=== PATIENT | male | born 1970 | race Caucasian/White ===

== ENCOUNTER 2021-01-17 13:52 | Emergency (ER) | payer MEDICARE, MEDICAID, SELFPAY ==
[2021-01-17] VITALS (8 sets, daily range): BP systolic 109–134; BP diastolic 72–104; PULSE 100–156; RESP 20; TEMP 36.7–36.8; O2SAT 96–98
--- NOTE | ~2021-01-17 | XR_ITS ---
EXAMINATION: XR chest 2V DATE: 01/17/2021 15:08 INDICATION: Congestive heart failure. Chest pain. TECHNIQUE: Frontal and lateral views of the chest were obtained. COMPARISON: Chest 2 views 08/13/2019 FINDINGS: There are small pleural effusions. There is no pneumonia or pneumothorax. Cardiomegaly is n oted. Epidural electrodes are noted. IMPRESSION: 1. Small pleural effusions. 2. Cardiomegaly. Reviewed, dictated and finalized at location B.
--- NOTE | 2021-01-17 14:00 | ECG_ITS ---
Measurements Intervals [place] Rate: 163 P: [place]: 0 QRS: 108 QRSD: 91 T: -60 QT: 248 QTc: 409 Interpretive Statements ATRIAL FIBRILLATION WITH RAPID VENTRICULAR RESPONSE RIGHT AXIS DEVIATION NONSPECIFIC ST & T-WAVE ABNORMALITY- DIFFUSE LEADS BASELINE ARTIFACT- II, III, AVR, AVF, V3 ABNORMAL ECG Electronically Signed On 01-17-2021 20:30:47 CDT by Ty Blackwood D.O.
[2021-01-17] MEDS: dilTIAZem HCl INJ 25 MG/5 ML VIAL 10 MG IV PUSH (14:10)
[2021-01-17] MEDS: ASPIRIN 81 MG CHEWABLE TABLET 324 MG PO (14:10)
--- NOTE | 2021-01-17 14:20 | ED.SOB ---
HPI - SOB/Dyspnea General Chief Complaint: Chest Pain Stated Complaint: Chest pain Time Seen by Provider: 01/17/21 14:10 Source: patient Mode of arrival: ambulatory Limitations: no limitations History of Present Illness HPI Narrative: This gentleman come in stating he has been moderately short of breath, ongoing since last pm. He has had palpations since last pm. He states he has had no chest pain, but has had some chest pressure since last pm. He states he has gained 20 pounds over the last few days. This shortness of breath has not been associated with any known cause. No modifying factors, nothing made this better at home. MD elicited complaint: shortness of breath Pertinent past history: other (rapid heartbeat) Onset (ago): hour(s) Context: anxiety and other (developed at rest) Timing: constant Severity: moderate Exacerbating factors: lying flat and exertion Relieving factors: rest Associated symptoms: chest pain (chest pressure) and palpitations Treatment prior to arrival: none Related Data Home oxygen amount: none Home Medications Medication Instructions Recorded Confirmed hydromorphone 2.5 mg PO BID 01/17/21 01/17/21 morphine 30 mg PO BID 01/17/21 01/17/21 testosterone 1 pump TOPICAL DAILY 01/17/21 01/17/21 Allergies Allergy/AdvReac Type Severity Reaction Status Date / Time No Known Allergies Allergy Verified 01/17/21 14:42 Review of Systems Constitutional: Constitutional: Reports no additional constitutional complaints Eyes: Eyes: Reports no additional eye complaints ENT: Reports system reviewed and no additional complaints, except as documented Cardiovascular: Cardiovascular: Reports no additional cardiovascular complaints Respiratory: Respiratory: Reports no additional respiratory complaints Gastrointestinal: Gastrointestinal: Reports no additional gastrointestinal complaints Genitourinary: Genitourinary: Reports no additional male genitourinary complaints Musculoskeletal: Musculoskeletal: Reports no additional musculoskeletal complaints Integumentary/Breasts: Skin/Breast: Reports system reviewed and no additional complaints, except as docu Neurologic: Reports system reviewed and no additional complaints, except as documented Hematologic/Lymphatic: Hematologic/Lymphatic: Reports no additional hematologic/lymphatic complaints Allergic/Immunologic: Allergic/Immunologic: Reports no additional allergic/immunologic complaints PMFSH Past Medical History Medical History (Updated 01/17/21 @ 16:21 by Rafita Nam MD) Arrhythmia Back pain Surgical History Surgical History (Updated 01/17/21 @ 14:25 by Rafita Nam MD) H/O laminectomy H/O: knee surgery History of hip replacement Family History Family History Father Family history of cardiac disorder Malignant neoplasm of prostate Family history of heart disease in male family member before age 55 Family history of malignant neoplasm Sibling Family history of malignant neoplasm of breast in first degree relative Mother Family history of malignant neoplasm Social History Social History Smoking status: Never smoker Alcohol intake: current Gender identity (if verbalized by the patient): Male Exam Const: General: healthy appearing and no acute distress Orientation/consciousness: patient oriented x3 HENMT: Head: normal to inspection Ears: external ears normal General nose exam: Normal external nose present Mouth: Yes Normal oral and palatal mucosa present Throat: posterior oropharynx normal Eyes: Conjunctivae: conjunctivae normal Neck: Neck: normal visual inspection Chest: Chest palpation & inspection: normal inspection of the chest Resp: Effort & Inspection: normal respiratory effort Cardio: Rate: regular rate Rhythm: regular rhythm GI: GI Palp: Yes Soft to palpation (nontender) : Male General Exam: Yes normal external exam Skin: General ski
[2021-01-17 14:33] LABS: Basophils Absolute Auto 0.06 K/mm3 (0.00-0.10); Basophils Percent Auto 0.4 % (0.0-1.0); Eosinophils Absolute Auto 0.03 K/mm3 (0.02-0.50); Eosinophils Percent Auto 0.2 % (1.0-6.0); Hematocrit 47.3 % (40.0-54.0); Hemoglobin 15.2 g/dL (14.0-18.0); Immature Granulocyte Absolute 0.06 K/mm3 (0.00-0.00); Immature Granulocyte Percent A 0.4 % (0.0-0.0); Lymphocytes Percent Auto 9.9 % (18.0-42.0); Mean Corpuscular HGB Conc 32.1 g/dL (32.0-36.0); Mean Corpuscular Hemoglobin 32.7 pg (27.0-31.0); Mean Corpuscular Volume 101.7 fL (78.0-102.0); Monocytes Absolute Auto 1.14 K/mm3 (0.10-0.90); Monocytes Percent Auto 7.5 % (2.0-11.0); Neutrophils Absolute Auto 12.4 K/mm3 (1.7-7.2); Neutrophils Percent Auto 81.6 % (50.0-70.0); Platelet Count Result 197 K/mm3 (150-420); Red Blood Count 4.65 M/mm3 (4.70-6.10); Red Cell Distribution Width 13.3 % (11.6-14.4); White Blood Count 15.2 K/mm3 (4.8-10.8)
[2021-01-17 14:55] LABS: Alanine Aminotransferase 175 U/L (16-63); Albumin Level 3.2 g/dL (3.4-5.0); Alkaline Phosphatase 48 U/L (46-116); Anion Gap 10 mmol/L (8-16); Aspartate Amino Transferase 70 U/L (15-37); Bilirubin,Total 1.1 mg/dL (0.00-1.00); Blood Urea Nitrogen 27 mg/dL (7-18); Calcium 8.4 mg/dL (8.5-10.1); Carbon Dioxide 20 mmol/L (21-32); Chloride 108 mmol/L (98-108); Estimated CRCL calculation 97 ml/min; Estimated Glomerular Filt Rate > 60; Glucose 146 mg/dL (70-99); Magnesium 2.4 mg/dL (1.8-2.4); NT Pro B Type Natriuretic Pept 2491 pg/mL (0-125); Osmolality Calculated 294 mOsm/kg (285-295); Potassium 4.1 mmol/L (3.5-5.1); Sodium 138 mmol/L (136-145); Total Protein 5.7 g/dL (6.4-8.2); Troponin I 17.5 ng/L (0.00-60.4)
[2021-01-17] MEDS: POTASSIUM BICARBONATE 25 MEQ TABEF 50 MEQ PO (15:40)
[2021-01-17] MEDS: FUROSEMIDE INJ 40 MG/4 ML VIAL 20 MG IV PUSH (15:40)
== END 2021-01-17 19:05 | disposition short-term general hospital (02) ==
PROVIDERS: Emergency Provider Emergency Medicine; PCP Internal Medicine
DX: I48.0 Paroxysmal atrial fibrillation (principal)
CPT/HCPCS: 36415; 71046; 80053; 83735; 83880; 84484; 85025; 93005; 96365; 96366; 96375; 99285; A9270; J1940

== ENCOUNTER 2021-01-17 20:53 | Inpatient (IN) | payer MEDICARE, MEDICAID, SELFPAY ==
--- NOTE | ~2021-01-17 | US_ITS ---
EXAMINATION:US venous doppler LE BI INDICATION:Leg edema TECHNIQUE: Multiple grayscale, color flow and Doppler images of the right and left lower extremity de ep venous systems were obtained and reviewed. COMPARISON: Ultrasound dated 04/02/2012. FINDINGS: The common femoral, superficial femoral and popliteal veins demonstrate normal respiratory variation, augmentation and compressibility. Color flow is also seen within the posterior tibial, pe roneal, greater saphenous and profunda veins. IMPRESSION: 1: No lower extremity deep venous thrombosis. Reviewed, dictated and finalized at location A.
[2021-01-17 19:45] VITALS: BP 139/102; PULSE 86; RESP 20; TEMP 36.5; O2SAT 99; BMI 28.8
--- NOTE | 2021-01-17 19:55 | ADMGEN ---
This patient, Jamarcus Cardenas, was admitted to IMU Room 200-01 at 1945. Patient/family oriented to hospital policies and general routines including ID bracelet, bed and alarms, visiting hours, pain management, procedures, bathroom and other care routines, personal items, smoking policy, room service/diet, and visiting hours. Information on how to activate the Rapid Response Team has been discussed. Patient/Family are encouraged to report perceived risks to care and to ask questions if they do not understand what they are told or what they should do.
[2021-01-17 19:58] VITALS: PULSE 85
[2021-01-17 20:00] VITALS: PULSE 85
[2021-01-17 20:19] VITALS: PULSE 85
--- NOTE | 2021-01-17 21:01 | PM.IMHP ---
H&P: HPI History of Present Illness Date/Time: 01/17/21 21:01 this is a 50-year-old male patient who has no to medical history. The patient has chronic back pain and has spinal stimulator in sees pain management. The patient stated that he felt this coming on for at least a week. He has been short of breath especially when bending over and then he said that when he rolls over in bed he feels short of breath as well. The patient stated that he had a 19 lb weight gain since this past Saturday. He has noticed an increased swelling to his lower extremities as well. The patient went to [facility] and was found to be in AFib with RVR and was started on a Cardizem drip. First troponin was found to be negative. BNP was elevated to 2490. As small pleural effusions. Cardiomegaly. The patient stated that he was given Lasix at [facility]. The patient tells me that he has had chest pressure midsternal for the last week. It just got worse over the last couple days. That he has not had any irregular heart rate but he states that he was seeing Dr. Gracia in the past any does not remember why. The patient stated that his heart rate he has to always be released low. Patient is being admitted to inpatient services on the date of service of 01/17/2021. I had been given report from Dr. perdomo at [facility] prior to the direct admit. Chief Complaint: Shortness of breath and chest pressure Review of Systems Review of Systems: All systems reviewed & are unremarkable except as noted in HPI and below Constitutional: Constitutional: Reports as per HPI and Reports no additional constitutional complaints Eyes: Eyes: Reports as per HPI and Reports no additional eye complaints ENT: Reports system reviewed and no additional complaints, except as documented and Reports Normal hearing present Cardiovascular: Cardiovascular: Reports no additional cardiovascular complaints Respiratory: Respiratory: Reports no additional respiratory complaints and Reports no additional respiratory complaints Gastrointestinal: Gastrointestinal: Reports as per HPI and Reports no additional gastrointestinal complaints Musculoskeletal: Musculoskeletal: Reports no additional musculoskeletal complaints Integumentary/Breasts: Skin/Breast: Reports system reviewed and no additional complaints, except as docu and Reports as per HPI Neurologic: Reports system reviewed and no additional complaints, except as documented, Reports as per HPI and Reports Normal hearing present Psychiatric: Psychiatric: Reports no additional psychiatric complaints and Reports as per HPI Endocrine: Endocrine: Reports no additional endocrine complaints Hematologic/Lymphatic: Hematologic/Lymphatic: Reports no additional hematologic/lymphatic complaints Allergic/Immunologic: Allergic/Immunologic: Reports no additional allergic/immunologic complaints [facility] Past Medical History Medical History (Updated 01/17/21 @ 21:10 by Anusha Keith NP) Arrhythmia Back pain Spinal cord stimulator status Surgical History Surgical History (Updated 01/17/21 @ 21:06 by Anusha Keith NP) H/O laminectomy H/O: knee surgery Bilaterally History of appendectomy History of bilateral carpal tunnel release History of hip replacement On the left Family History Family History Father Family history of cardiac disorder Malignant neoplasm of prostate Family history of heart disease in male family member before age 55 Family history of malignant neoplasm Sibling Family history of malignant neoplasm of breast in first degree relative Mother Family history of malignant neoplasm Social History Social History (Updated 01/17/21 @ 21:08 by Anusha Keith NP) Social History: The patient lives with his . He has 2 biological children and 3 step children. The patient is disabled. His is the durable power environmental attorney for healthcare. [place]
[2021-01-17 21:36] LABS: Basophils Absolute Auto 0.1 K/mm3 (0.0-0.1); Basophils Percent Auto 0.4 % (0.2-1.2); Eosinophils Absolute Auto 0.1 K/mm3 (0-0.3); Eosinophils Percent Auto 0.4 % (0-4.4); Hematocrit 45.9 % (42.0-52.0); Hemoglobin 15.1 g/dL (14.0-18.0); Immature Granulocyte Absolute 0.07 K/mm3 (0.00-0.031); Immature Granulocyte Percent A 0.5 % (0-0.5); Lymphocytes Absolute Auto 1.97 K/mm3 (0.9-3.2); Lymphocytes Percent Auto 15.3 % (18.3-44.2); Mean Corpuscular HGB Conc 32.9 g/dl (32-36); Mean Corpuscular Hemoglobin 32.4 pg (26-34); Mean Corpuscular Volume 98.5 fl (80-100); Mean Platelet Volume 11.3 fl (7.4-10.4); Monocytes Absolute Auto 0.9 K/mm3 (0.1-0.6); Monocytes Percent Auto 7.2 % (2.6-8.5); Neutrophils Absolute Auto 9.8 K/mm3 (1.3-6.7); Neutrophils Percent Auto 76.2 % (45.5-73.1); Platelet Count Result 200 k/mm3 (150-375); Red Blood Count 4.66 M/mm3 (4.6-6.20); Red Cell Distribution Width 13.5 % (11.5-14.5); White Blood Count 12.9 K/mm3 (4.5-10.0)
[2021-01-17 21:45] LABS: Magnesium 2.1 mg/dL (1.6-2.3)
[2021-01-17] MEDS: ENOXAPARIN 120 MG/0.8 ML SYRINGE 105 MG SUB-Q (21:46)
[2021-01-17 21:58] LABS: Troponin I 0.017 ng/mL (0.000-0.034)
[2021-01-17 22:00] VITALS: PULSE 100
[2021-01-17] MEDS: MORPHINE SULFATE (*CRX) 2 MG/ML INJ IV PUSH (22:48)
[2021-01-17 23:07] VITALS: BP 132/77; PULSE 78; RESP 20; TEMP 36.6; O2SAT 97
[2021-01-18] VITALS (17 sets, daily range): BP systolic 101–139; BP diastolic 71–86; PULSE 70–146; RESP 18–20; TEMP 35.8–36.6; O2SAT 97–100
--- NOTE | 2021-01-18 | ECHO_ITS ---
Patient Info Name: Jamarcus Cardenas Age: 50 years : 1970 Gender: Male Ht: 75 in Wt: 230 lbs BSA: 2.37 m2 HR: 100 bpm BP: 139 / 86 mmHg Heart Rhythm: Atrial Fibrillation Technical Quality: Good Exam Date: 01/18/2021 9:46 AM Exam Location: [facility] Pulmonary Patient Status: Inpatient Admit Date: 01/17/2021 Staff Ordering Physician: Anusha Keith NP [place] Sewer: London Shetty RDCS, RT Attending Provider: Nathan Razo MD Referring Physician: Inna POON; Exam Type: CA echo dop color flow w con Study Info Indications R06.02 - Shortness of breath Complete two-dimensional, color flow and Doppler transthoracic echocardiogram is performed with contrast to opacify the left ventricle and to improve the deliniation of the left ventricle endocardial borders. Strain analysis performed. Summary 1. Left ventricular chamber dimension is moderately enlarged. 2. Left ventricular systolic function is moderately reduced, estimated at 30-35%. 3. Left atrial chamber dimension is moderately enlarged. 4. There is mild mitral valve regurgitation. 5. Atrial Fibrillation. Left Ventricle Left ventricular chamber dimension is moderately enlarged. Left ventricular systolic function is moderately reduced, estimated at 30-35%. The left ventricular diastolic function is indeterminate. Right Ventricle Right ventricular chamber dimension is normal. Left Atria Left atrial chamber dimension is moderately enlarged. Right Atria Right atrial chamber dimension is normal. Aortic Valve The aortic valve is normal. Pulmonic Valve The pulmonic valve is normal. Mitral Valve The mitral valve has normal leaflets. There is mild mitral valve regurgitation. Tricuspid Valve The tricuspid valve leaflets are normal. Pericardium/Pleural The pericardium appears normal. Aorta The aortic root size at the sinus of Valsalva is normal. Left Ventricular Outflow Tract Name Value Normal LVOT 2D LVOT Diameter 2.24 cm LVOT Doppler LVOT Peak Gradient 1 mmHg LVOT Mean Gradient 1 mmHg LVOT VTI 19.68 cm LVOT VTI/AV VTI Ratio 0.84 LVOT Stroke Volume 77.72 ml LVOT CO 3.62 l/min LVOT CI 1.53 L/min/m2 Mitral Valve Name Value Normal MV Doppler MV Decel [place] 762.44 cm/s2 MV PHT 0 s MV Area (PHT) 6.79 cm2 4.00-5.00 MV Diastolic Function MV E Peak Velocity 85.23 cm/s MV A Peak Velocity 88.80 cm/s MV E/A 0.96
[2021-01-18] MEDS: HYDROcodone/acetaminophen (*CRX) 5-325 MG TABLET 1 TAB PO (00:15)
[2021-01-18 00:31] LABS: Anion Gap 6 mmol/L (8-16); Blood Urea Nitrogen 22 mg/dL (9-20); Calcium 8.3 mg/dL (8.4-10.2); Carbon Dioxide 25 mmol/L (22-30); Chloride 106 mmol/L (98-107); Estimated CRCL calculation 92 ml/min; Estimated Glomerular Filt Rate > 60; Glucose 123 mg/dL (75-110); Magnesium 2.2 mg/dL (1.6-2.3); Potassium 4.3 mmol/L (3.4-5.0); Sodium 137 mmol/L (137-145)
[2021-01-18] MEDS: MORPHINE SULFATE (*CRX) 2 MG/ML INJ IV PUSH ×2 (03:52→17:12)
[2021-01-18 04:24] LABS: Basophils Absolute Auto 0.1 K/mm3 (0.0-0.1); Basophils Percent Auto 0.5 % (0.2-1.2); Eosinophils Absolute Auto 0.1 K/mm3 (0-0.3); Eosinophils Percent Auto 0.4 % (0-4.4); Hematocrit 43.8 % (42.0-52.0); Hemoglobin 14.2 g/dL (14.0-18.0); Immature Granulocyte Absolute 0.09 K/mm3 (0.00-0.031); Immature Granulocyte Percent A 0.8 % (0-0.5); Lymphocytes Absolute Auto 1.94 K/mm3 (0.9-3.2); Lymphocytes Percent Auto 17.1 % (18.3-44.2); Mean Corpuscular HGB Conc 32.4 g/dl (32-36); Mean Corpuscular Hemoglobin 32.3 pg (26-34); Mean Corpuscular Volume 99.8 fl (80-100); Mean Platelet Volume 11.4 fl (7.4-10.4); Monocytes Percent Auto 9.1 % (2.6-8.5); Neutrophils Absolute Auto 8.2 K/mm3 (1.3-6.7); Neutrophils Percent Auto 72.1 % (45.5-73.1); Platelet Count Result 195 k/mm3 (150-375); Red Blood Count 4.39 M/mm3 (4.6-6.20); Red Cell Distribution Width 13.5 % (11.5-14.5); White Blood Count 11.4 K/mm3 (4.5-10.0)
[2021-01-18 04:42] LABS: Anion Gap 5 mmol/L (8-16); Blood Urea Nitrogen 20 mg/dL (9-20); Carbon Dioxide 24 mmol/L (22-30); Chloride 106 mmol/L (98-107); Estimated CRCL calculation 102 ml/min; Estimated Glomerular Filt Rate > 60; Glucose 102 mg/dL (75-110); Magnesium 2.2 mg/dL (1.6-2.3); Potassium 4.3 mmol/L (3.4-5.0); Sodium 135 mmol/L (137-145)
[2021-01-18 07:06] LABS: Add Urine Microscopic? YES; Appearance Urine Clear (Clear); Bilirubin Urine Negative (Negative); Blood Urine Negative (Negative); Color Urine Yellow (Yellow); Glucose Urine UA Negative (Negative); Ketones Urine Negative (Negative); Leukocyte Esterase Ur Negative LEU/UL (Negative); Mucus Urine Heavy /lpf; Nitrate Urine Negative (Negative); Protein Urine 1+ mg/dL (Negative); RBC Urine 0-2 /hpf (0-2); Urobilinogen Urine Negative mg/dL (<2.0); WBC Urine 0-3 /hpf
[2021-01-18 07:11] LABS: Specific Grav Ur 1.032 (1.001-1.035)
[2021-01-18] MEDS: MORPHINE SULFATE (*CRX) 30 MG TABCR PO ×2 (08:29→21:29)
[2021-01-18] MEDS: ENOXAPARIN 120 MG/0.8 ML SYRINGE 105 MG SUB-Q ×2 (08:29→17:11)
[2021-01-18] MEDS: FUROSEMIDE INJ 40 MG/4 ML VIAL IV PUSH (08:29)
--- NOTE | 2021-01-18 09:41 | PM.CNCAR ---
Assessment and Plan Additional Plan 50-year-old man with: Atrial fibrillation with rapid ventricular response. By history this is began 7-10 days or so before hospital presentation. He is rate controlled a anticoagulated with Lovenox and is hemodynamically stable at this time. At this time I would recommend shifting him to an oral anticoagulant and awaiting his echocardiogram results to select an oral rate control agent. Generally speaking if he is otherwise stable we will most likely recommend rate control and anticoagulation for the short term and attempt cardioversion after 4-6 weeks of anticoagulation. Depending on his clinical response to this strategy it sometimes of forces by is desirable to try to restore sinus rhythm earlier. That would require BRENDAN cardioversion during this hospitalization since it is by history he has been in atrial fibrillation for more than a week. Rene Stringer MD [facility] History of Present Illness History of Present Illness Consult date/time: 01/18/21 09:41 Consult reason: atrial fibrillation Reason For Visit: A fib w RVR/ Cardiomegaly Narrative: This is a 50-year-old man of seeing at the request of the hospitalist today for the assistance with evaluation and management of atrial fibrillation. The patient is a known to have any cardiac problems before this and became symptomatic last weekend on Saturday or Saturday. He states that he noticed that he was gradually less stamina and energy than he had in the past and slowly becoming more short of breath. He also noticed that his weight was increasing and notice some lower extremity edema. Over the course of the 7-10 days that he was having the symptoms he slowly put on about 18 lb of weight and eventually called his physician about this. Interestingly he is not having any sense of being aware of palpitations or tachycardia. His physician advised him to come to the emergency room in [place] yesterday where he was evaluated. He was found to be in atrial fib with rapid ventricular response and was transferred to this hospital. He was of course treated with intravenous diltiazem to control his heart rate and anticoagulated with therapeutic dose of Lovenox. An echocardiogram has been ordered by the hospitalist staff which is yet to be performed this morning. The patient states there is sense of some mild pressure in his chest over the course of the last week or so since the symptoms have begun he is otherwise relatively comfortable appearing of this morning it other than urinating frequently in response to furosemide does not have any other complaints. 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 He also has a previous hip and knee replacement surgery performed. He states he is not known to have diabetes or dyslipidemia he states his physician a number of years ago told him that his blood pressure was somewhat elevated but he lost about 30-40 lb after being told that it states with blood pressure improved and he has never been medical antihypertensive therapy. With IV diltiazem running his heart rate is now in the low 100s and he seems to be hemodynamically stable he is oxygenating well. Review of Systems Constitutional: Constitutional: Reports no additional constitutional complaints Eyes: Eyes: Reports no additional eye complaints ENT: Reports system reviewed and no additional complaints, except as documented Cardiovascular: Cardiovascular: Reports as per HPI Respiratory: Respiratory: Reports as per HPI and Reports dyspnea Gastrointestinal: Gastrointestinal: Reports no additional gastrointestinal complaints Musculoskeletal: Musculoskeletal: Reports as per HPI Integumentary/Breasts: Skin/Breast: Reports system reviewed and no additional complaints, except as docu Neurologic: Reports system revie
[2021-01-18] MEDS: PERFLUTREN LIPID MICROSPHERES 1.5 ML VIAL DILUTED TO 10 ML TOTAL VOLUME IV PUSH (10:19)
--- NOTE | 2021-01-18 12:22 | PM.IMPN ---
Progress Note: A&P Assessment and Plan (1) Atrial fibrillation: Qualifiers: Atrial fibrillation type: paroxysmal Qualified Code(s): I48.0 - Paroxysmal atrial fibrillation Code(s): I48.91 - Unspecified atrial fibrillation Status: Inactive Assessment and Plan: This is a new onset that the patient is aware of new onset c therapeutic Lovenox echo cardiology consult David gusman ordered an echo . (2) Peripheral edema: Code(s): R60.9 - Edema, unspecified Status: Acute Assessment and Plan: Probably related to CHF exacerbation pending echo continue IV diuresis. (3) Back pain: Code(s): M54.9 - Dorsalgia, unspecified Status: Chronic Assessment and Plan: Will continue with patient's morphine and do p.r.n. IV morphine for breakthrough pain. The patient stated that he has had at least 6 back surgeries in the past. He does see pain management. Patient has a medical marijuana card but states that the marijuana does not help Subjective Date/time seen: 01/18/21 12:22 Interval history: Patient seen and examined Patient presented to the hospital with shortness of breath lower extremity swelling chronic back pain weight gain patient was found to have AFib with RVR acute CHF exacerbation started on therapeutic Lovenox and IV diuresis Patient feels weak complains of lower extremity edema Patient denies fever headache chest pain I am seeing the patient for CHF exacerbation Exam Narrative: Exam Narrative: Alert Chest bilateral basal crackles Abdomen nontender nondistended CVS S1 + S2 Positive Lower extremity edema Objective Data Vital Signs Vital Signs: Vital Signs - 24 hr 01/17/21 19:45 01/17/21 19:58 01/17/21 20:00 Temperature 97.7 F Pulse Rate 86 85 85 Respiratory Rate 20 Blood Pressure 139/102 H Pulse Oximetry 99 01/17/21 20:19 01/17/21 22:00 01/17/21 23:07 Temperature 97.9 F Pulse Rate 85 100 78 Respiratory Rate 20 Blood Pressure 132/77 Pulse Oximetry 97 01/18/21 00:00 01/18/21 02:00 01/18/21 04:00 Temperature 97.9 F Pulse Rate 110 H 86 70 Respiratory Rate 20 18 Blood Pressure 139/86 Pulse Oximetry 97 98 01/18/21 06:00 01/18/21 08:00 01/18/21 10:00 Temperature 96.4 F L Pulse Rate 85 97 106 H Respiratory Rate 20 Blood Pressure 118/81 Pulse Oximetry 100 Intake/Output Intake/Output: Intake & Output 01/15/21 01/16/21 01/17/21 01/18/21 23:59 23:59 23:59 23:59 Intake Total 930 Output Total 3050 Balance -2120 Meds/Results Medications: Active Medications Generic Name Dose Route Start Last Admin Trade Name Freq PRN Reason Stop Dose Admin Furosemide 40 mg 01/18/21 09:00 01/18/21 08:29 Furosemide Inj 40 Mg/4 Ml Vial IV PUSH 40 mg DAILY MORRIS Administration Diltiazem HCl 100 mg in 100 mls @ 10 mls/hr 01/17/21 21:10 Cardizem 100 Mg/D5w 100 Ml IV CONT .Q10H MORRIS 10 MG/HR Lisinopril 5 mg 01/19/21 09:00 Lisinopril 5 Mg Tablet PO QAM [facility] Metoprolol Tartrate 50 mg 01/18/21 21:00 Metoprolol Tartrate 50 Mg Tab PO Q12HR [facility] Morphine Sulfate 2 mg 01/17/21 20:53 01/18/21 03:52 Morphine Sulfate (*Crx) 2 Mg/Ml Inj IV PUSH 2 mg Q4H PRN Administration Pain Rated 7-10 Morphine Sulfate 30 mg 01/18/21 09:00 01/18/21 08:29 Morphine Sulfate (*Crx) 30 Mg Tabcr PO 30 mg Q12HR MORRIS Administration Naloxone HCl 0.1 mg 01/17/21 20:53 Naloxone Hcl 0.4 Mg/Ml Vial IV PUSH Q2M PRN Opiate Reversal Ondansetron HCl 4 mg 01/17/21 20:53 Ondansetron Inj 4 Mg/2 Ml Vial IV PUSH Q6H PRN Nausea And Vomiting Rivaroxaban 20 mg 01/18/21 17:00 Rivaroxaban 20 Mg Tablet PO DAILY@1700 [facility] Spironolactone 25 mg 01/19/21 09:00 Spironolactone 25 Mg Tablet PO QAM [facility] Sumatriptan Succinate 100 mg 01/18/21 00:04 Sumatriptan Succinate 25 Mg Tablet PO DAILY PRN Headache Labs [place]
--- NOTE | 2021-01-18 14:07 | ECG_ITS ---
Measurements Intervals [place] Rate: 101 P: [place]: 0 QRS: 91 QRSD: 92 T: 149 QT: 322 QTc: 418 Interpretive Statements ATRIAL FIBRILLATION WITH RAPID VENTRICULAR RESPONSE RIGHT AXIS DEVIATION NONSPECIFIC ST & T-WAVE ABNORMALITY- DIFFUSE LEADS BASELINE ARTIFACT- III, V2 ABNORMAL ECG Electronically Signed On 01-18-2021 14:32:23 CDT by Ty Blackwood D.O.
[2021-01-18 15:02] LABS: Troponin I < 0.012 ng/mL (0.000-0.034)
--- NOTE | 2021-01-18 16:28 | PM.EVENT ---
Event Note Event Note Event Note: Received call from patient's nurse stating that patient was reporting new onset chest pain. Per the nurse he describes this pain as a squeezing type pain in his upper left chest. Requested stat EKG and troponin. Proceeded to bedside to evaluate patient. He states that his chest pain has resolved but has been intermittent throughout the day when his heart rate becomes elevated. At the time of this encounter his heart rate was in the 140s. He states that states the pain feels like the muscles in his chest are squeezing and that he feels like it is difficult to breathe during these events. He also states that he is having some anxiety. He denies radiation of the pain to his neck, jaw, arm. Chest pain resolved without any intervention. EKG personally reviewed and compared with previous EKG. No changes concerning for ischemia. Troponin negative. Will continue to monitor patient.
[2021-01-18 17:13] LABS: Glucose Point of Care 167 mg/dl (65-105)
[2021-01-18] MEDS: METOPROLOL TARTRATE 50 MG TAB PO (21:28)
[2021-01-19] VITALS (21 sets, daily range): BP systolic 99–131; BP diastolic 69–86; PULSE 52–130; RESP 17–20; TEMP 35.9–36.7; O2SAT 95–100
[2021-01-19] MEDS: MORPHINE SULFATE (*CRX) 2 MG/ML INJ IV PUSH ×2 (01:20→19:01)
[2021-01-19] MEDS: ENOXAPARIN 120 MG/0.8 ML SYRINGE 105 MG SUB-Q (06:12)
[2021-01-19] MEDS: FUROSEMIDE INJ 40 MG/4 ML VIAL IV PUSH (08:21)
[2021-01-19] MEDS: MORPHINE SULFATE (*CRX) 30 MG TABCR PO ×2 (08:21→20:44)
[2021-01-19] MEDS: METOPROLOL TARTRATE 50 MG TAB PO ×3 (08:21→22:51)
[2021-01-19] MEDS: lisinopriL 5 MG TABLET PO (08:21)
[2021-01-19] MEDS: SPIRONOLACTONE 25 MG TABLET PO (08:24)
--- NOTE | 2021-01-19 08:56 | PM.PNCARD ---
Progress Note: A&P Assessment and Plan (1) Atrial fibrillation with RVR: Code(s): I48.91 - Unspecified atrial fibrillation Status: Acute Assessment and Plan: This a new diagnosis this admission. Unknown chronicity. It sounds like the patient may have been in AFib with RVR for quite some time without any obvious symptoms therefore he did not seek evaluation. He has been transitioned to oral metoprolol and diltiazem has been discontinued at this time. Telemetry overnight demonstrated that he did have some tachycardia with a rate up to 160. However, it appears that after receiving his 1st dose of metoprolol his heart rate has been better controlled and has not had any RVR since last night. His rate is currently in the 80s. Plan to monitor patient throughout the day for any episodes of RVR. If he remains asymptomatic and rate controlled okay to discharge later today or tomorrow. We will anticoagulate him with Xarelto. (2) Cardiomyopathy: Code(s): I42.9 - Cardiomyopathy, unspecified Status: Acute Assessment and Plan: Echocardiogram from 01/18/2021 demonstrated moderate LV dysfunction with an ejection fraction of 30-35%. This is likely due to his tachyarrhythmia. Clinically his heart failure symptoms have improved. His lower extremity edema has essentially resolved, he denies any shortness of breath, lungs are clear. Will transition him to oral furosemide today. Check BMP now. He has been placed on appropriate medical therapy for her for HFrEF including lisinopril, spironolactone, metoprolol, furosemide. We will see him in the office as an outpatient and repeat an echocardiogram. (3) Peripheral edema: Code(s): R60.9 - Edema, unspecified Status: Acute Assessment and Plan: See above. Additional Plan 50-year-old man with: Atrial fibrillation with rapid ventricular response. By history this is began 7-10 days or so before hospital presentation. He is rate controlled a anticoagulated with Lovenox and is hemodynamically stable at this time. At this time I would recommend shifting him to an oral anticoagulant and awaiting his echocardiogram results to select an oral rate control agent. Generally speaking if he is otherwise stable we will most likely recommend rate control and anticoagulation for the short term and attempt cardioversion after 4-6 weeks of anticoagulation. Depending on his clinical response to this strategy it sometimes of forces by is desirable to try to restore sinus rhythm earlier. That would require BRENDAN cardioversion during this hospitalization since it is by history he has been in atrial fibrillation for more than a week. Rene Stringer MD [facility] He is stable today and rate is reasonably controlled on oral metoprolol. We will proceed with the above plan outlined by Dr. Stringer and attempt cardioversion in 4-6 weeks at which point in time he will be adequately anticoagulated. Sara Garibay, ANP- Subjective Date/time seen: 01/19/21 08:56 cardiology follow-up for atrial fibrillation with rapid ventricular response Patient states he is feeling much better today. He denies having any chest pain or palpitations overnight. He does state that this morning he experienced a period of anxiety with associated shortness of breath. He states that when he closed his eyes and began to relax her shortness of breath resolved. He notes that the swelling in his ankles and feet has drastically improved. Review of Systems Constitutional: Constitutional: Reports no additional constitutional complaints, Denies difficulty sleeping, Denies fatigue and Denies weakness Eyes: Eyes: Reports no additional eye complaints ENT: Reports system reviewed and no additional complaints, except as documented and Reports Normal hearing present Cardiovascular: Cardiovascular: Reports as per HPI, Denies chest pain, Reports pedal edema, Denies leg edema, Denies lightheadedness, Denies palpita
[2021-01-19 10:23] LABS: Anion Gap 6 mmol/L (8-16); Blood Urea Nitrogen 13 mg/dL (9-20); Calcium 8.6 mg/dL (8.4-10.2); Carbon Dioxide 26 mmol/L (22-30); Chloride 107 mmol/L (98-107); Estimated CRCL calculation 102 ml/min; Estimated Glomerular Filt Rate > 60; Glucose 126 mg/dL (75-110); Potassium 4.2 mmol/L (3.4-5.0); Sodium 139 mmol/L (137-145)
--- NOTE | 2021-01-19 11:42 | PM.DS ---
DS: Admitting Diagnosis Admitting Diagnosis Admitting Diagnosis: Shortness of breath DS: Discharge Diagnosis Discharge Diagnosis (1) Atrial fibrillation: Qualifiers: Atrial fibrillation type: paroxysmal Qualified Code(s): I48.0 - Paroxysmal atrial fibrillation Code(s): I48.91 - Unspecified atrial fibrillation Status: Inactive Assessment and Plan: This is a new onset that the patient is aware of new onset c therapeutic Lovenox echo cardiology consult Cardizem drip echo shows ejection fraction 30-35% discussed with Cardiology plan for ischemic workup as outpatient patient will be discharged on beta-selina anticoagulation and follow-up with cardiology as outpatient. (2) Peripheral edema: Code(s): R60.9 - Edema, unspecified Status: Acute Assessment and Plan: Acute on top of chronic systolic CHF exacerbation with ejection fraction 30-35% follow-up with cardiology as outpatient may need ischemic workup discussed with cardiology patient will be discharged on oral diuretics repeat CMP in 1 week . (3) Back pain: Code(s): M54.9 - Dorsalgia, unspecified Status: Chronic Assessment and Plan: Will continue with patient's morphine and do p.r.n. IV morphine for breakthrough pain. The patient stated that he has had at least 6 back surgeries in the past. He does see pain management. Patient has a medical marijuana card but states that the marijuana does not help DS: Summary Hospital Course Hospital Course: Patient was admitted to the hospital with shortness of breath lower extremity edema weight gain was found to have AFib with RVR acute on top of chronic systolic CHF exacerbation cardiology was consulted patient was treated with Cardizem drip and Lovenox and IV diuresis patient will be discharged on metoprolol oral anticoagulation diuretics and follow-up with cardiology as outpatient for ischemic workup Time Spent with Patient Time attestation: Total time spent providing and/or coordinating discharge services: Exam Narrative: Exam Narrative: Alert Chest bilateral basal crackles Abdomen nontender nondistended CVS S1 + S2 Positive Lower extremity edema DS: Data Data Completed and Pending Labs on day of discharge: Labs from last 24 hours 01/19/21 01/18/21 01/18/21 09:52 16:16 14:20 Sodium 139 Potassium 4.2 Chloride 107 Carbon Dioxide 26 Anion Gap 6 L BUN 13 D Creatinine 0.90 Estim Creat Clear Calc 102 Estimated GFR > 60 Glucose 126 H POC Capillary Glucose 167 H Calcium 8.6 Troponin I < 0.012 Discharge Plan Discharge Attending physician on discharge: Abdirashid Hodgson M.A. Consulting providers: Rene Stringer Discharging Clinician: Abdirashid Hodgson M.A. Patient Disposition: Home, Self-Care Activity: no preference Diet: heart healthy, diabetic and low sodium Patient Instructions: Antibiotic Form, Rivaroxaban (By mouth) Stand Alone Forms: General Discharge Information Follow-up/Referrals: Rene Stringer MD [Physician] - Mateo Walters MD [Primary Care Provider] - Discharge Medications: New spironolactone 25 mg Tablet 25 mg PO QAM Qty: 30 RF: 0 Xarelto 20 mg Tablet 20 mg PO DAILY@1700 Qty: 30 RF: 0 metoprolol tartrate 50 mg Tablet 50 mg PO Q12HR Qty: 60 RF: 0 lisinopril 5 mg Tablet 5 mg PO QAM Qty: 30 RF: 0 furosemide 40 mg Tablet 40 mg PO BID Qty: 60 RF: 0 Continued morphine 30 mg tablet extended release 30 mg PO BID RF: 0 hydromorphone 2 mg tablet 2 mg PO BID RF: 0 testosterone 20.25 mg/1.25 gram (1.62 %) gel in metered-dose pump 1 pump topical DAILY RF: 0 sumatriptan succinate 100 mg tablet 100 mg PO DAILY PRN (Reason: Headache) RF: 0 Discontinued diclofenac sodium 75 mg tablet,delayed release (DR/EC) 75 mg PO DAILY PRN (Reason: Inflammation) RF: 0 Date of admission: 01/17/21 19:43 Primary Care
[2021-01-19] MEDS: RIVAROXABAN 20 MG TABLET PO (18:18)
[2021-01-19] MEDS: FUROSEMIDE 40 MG TABLET PO (18:19)
[2021-01-19] MEDS: METOPROLOL TARTRATE INJ 5 MG/5 ML VIAL IV PUSH (18:50)
[2021-01-20] VITALS (25 sets, daily range): BP systolic 99–121; BP diastolic 67–99; PULSE 66–115; RESP 16–21; TEMP 36.3–37.1; O2SAT 93–100
--- NOTE | 2021-01-20 | ECHO_ITS ---
Patient Info Name: Jamarcus Cardenas Age: 50 years : 1970 Gender: Male Ht: 75 in Wt: 235 lbs BSA: 2.39 m2 HR: 115 bpm BP: 120 / 98 mmHg Heart Rhythm: Atrial Fibrillation Technical Quality: Good Exam Date: 01/20/2021 4:03 PM [facility] Patient Status: Inpatient Admit Date: 01/17/2021 Staff Ordering Physician: Nathan Razo MD Physician Practice Coordinator: Hortencia Pruitt RDCS Attending Provider: Nathan Razo MD Exam Type: CA echo transesophageal Study Info Indications - PRE CARDIOVERSION AFIB /RVR CARDIOMEGALY Complete two-dimensional, color flow and Doppler transesophageal study is performed. Summary 1. Left ventricular chamber dimension is moderately enlarged. 2. Left atrial chamber dimension is severely enlarged. 3. There is no thrombus visualized in the left atrium. 4. DC Cardioversion to be done. Left Ventricle Left ventricular chamber dimension is moderately enlarged. Left ventricular systolic function is severely reduced with an ejection fraction by Biplane Method of Discs of Empty. Right Ventricle Right ventricular chamber dimension is mildly enlarged. Left Atria Left atrial chamber dimension is severely enlarged. There is no thrombus visualized in the left atrium. Right Atria Right atrial chamber dimension is mildly enlarged. Atrial Appendage There is no thrombus visualized in the left atrial appendage. Aortic Valve The aortic valve is normal. Pulmonic Valve The pulmonic valve is not well visualized. Mitral Valve The mitral valve has normal leaflets. There is mild mitral valve regurgitation. Tricuspid Valve The tricuspid valve leaflets are normal. Pericardium/Pleural The pericardium appears normal. Inferior Vena Cava Not well visualized inferior vena cava with Empty collapse upon inspiration consistent with Empty right atrial pressure, Empty. Aorta The aortic root size at the sinus of Valsalva is normal. Report Signatures
[2021-01-20] MEDS: MORPHINE SULFATE (*CRX) 2 MG/ML INJ IV PUSH ×2 (02:14→12:51)
[2021-01-20] MEDS: METOPROLOL TARTRATE 50 MG TAB PO ×3 (05:51→21:13)
[2021-01-20] MEDS: MORPHINE SULFATE (*CRX) 30 MG TABCR PO ×2 (09:24→21:13)
[2021-01-20] MEDS: lisinopriL 5 MG TABLET PO (09:24)
[2021-01-20] MEDS: SPIRONOLACTONE 25 MG TABLET PO (09:25)
[2021-01-20] MEDS: FUROSEMIDE 40 MG TABLET PO (09:25)
--- NOTE | 2021-01-20 10:32 | PM.PNCARD ---
Progress Note: A&P Assessment and Plan (1) Atrial fibrillation with RVR: Code(s): I48.91 - Unspecified atrial fibrillation Status: Acute Assessment and Plan: This a new diagnosis this admission. Unknown chronicity. It sounds like the patient may have been in AFib with RVR for quite some time without any obvious symptoms therefore he did not seek evaluation. He has been transitioned to oral metoprolol. Metoprolol increased yesterday to q.8h due to persistent tachycardia. Unfortunately, his heart rate did not adequately responded to oral medications for rate control. Therefore, we will proceed with a BRENDAN guided cardioversion today. He is anticoagulated with Xarelto. (2) Cardiomyopathy: Code(s): I42.9 - Cardiomyopathy, unspecified Status: Acute Assessment and Plan: Echocardiogram from 01/18/2021 demonstrated moderate LV dysfunction with an ejection fraction of 30-35%. This is likely due to his tachyarrhythmia. Clinically his heart failure symptoms have improved. His lower extremity edema has essentially resolved, he denies any shortness of breath, lungs are clear. Continue oral furosemide 40 mg b.i.d. He has been placed on appropriate medical therapy for her for HFrEF including lisinopril, spironolactone, metoprolol, furosemide. We will see him in the office as an outpatient and repeat an echocardiogram. (3) Peripheral edema: Code(s): R60.9 - Edema, unspecified Status: Acute Assessment and Plan: See above. Additional Plan 50-year-old man with: Atrial fibrillation with rapid ventricular response. By history this is began 7-10 days or so before hospital presentation. He is rate controlled a anticoagulated with Lovenox and is hemodynamically stable at this time. At this time I would recommend shifting him to an oral anticoagulant and awaiting his echocardiogram results to select an oral rate control agent. Generally speaking if he is otherwise stable we will most likely recommend rate control and anticoagulation for the short term and attempt cardioversion after 4-6 weeks of anticoagulation. Depending on his clinical response to this strategy it sometimes of forces by is desirable to try to restore sinus rhythm earlier. That would require BRENDAN cardioversion during this hospitalization since it is by history he has been in atrial fibrillation for more than a week. Rene Stringer MD [facility] Unfortunately, we have not been able to adequately control his rate with oral medications. Therefore, our plan is to proceed with a BRENDAN guided cardioversion today. JACK Triplett-ANGELIKA Subjective Date/time seen: 01/20/21 10:32 Interval history: Date of service 01/20/2021: Patient remained tachycardic overnight despite increased dose of metoprolol. He states that he is feeling dizzy and at times can feel his heart pounding in his chest. Talked to patient and his about plan for BRENDAN guided cardioversion today. Review of Systems Constitutional: Constitutional: Reports no additional constitutional complaints, Denies difficulty sleeping, Denies fatigue and Denies weakness Eyes: Eyes: Reports no additional eye complaints ENT: Reports system reviewed and no additional complaints, except as documented and Reports Normal hearing present Cardiovascular: Cardiovascular: Reports as per HPI, Denies chest pain, Denies pedal edema, Denies leg edema, Reports lightheadedness, Reports palpitations, Denies dyspnea and Denies dyspnea on exertion Respiratory: Respiratory: Reports as per HPI, Denies dyspnea and Denies dyspnea on exertion Gastrointestinal: Gastrointestinal: Reports no additional gastrointestinal complaints Musculoskeletal: Musculoskeletal: Reports as per HPI Integumentary/Breasts: Skin/Breast: Reports system reviewed and no additional complaints, except as docu Neurologic: Reports system reviewed and no additional complaints, except as documented, Reports Normal hearing present and
--- NOTE | 2021-01-20 10:53 | PM.IMPN ---
Progress Note: A&P Assessment and Plan (1) Atrial fibrillation: Qualifiers: Atrial fibrillation type: paroxysmal Qualified Code(s): I48.0 - Paroxysmal atrial fibrillation Code(s): I48.91 - Unspecified atrial fibrillation Status: Inactive Assessment and Plan: This is a new onset that the patient is aware of new onset therapeutic Lovenox echo cardiology consult Viral drip echo shows ejection fraction 30-35% discussed with Cardiology plan for ischemic workup as outpatient patient plan for michael with cardioversion Anticipate discharge in a.m.. (2) Peripheral edema: Code(s): R60.9 - Edema, unspecified Status: Acute Assessment and Plan: Acute on top of chronic systolic CHF exacerbation with ejection fraction 30-35% follow-up with cardiology as outpatient may need ischemic workup discussed with cardiology patient . (3) Back pain: Code(s): M54.9 - Dorsalgia, unspecified Status: Chronic Assessment and Plan: Will continue with patient's morphine and do p.r.n. IV morphine for breakthrough pain. The patient stated that he has had at least 6 back surgeries in the past. He does see pain management. Patient has a medical marijuana card but states that the marijuana does not help. Subjective Date/time seen: 01/20/21 10:53 Interval history: Patient seen and examined Patient presented to the hospital with shortness of breath lower extremity swelling chronic back pain weight gain patient was found to have AFib with RVR acute CHF exacerbation started on therapeutic Lovenox and IV diuresis was treated with beta-selina and Xarelto patient's rate was not controlled plan for michael today with cardioversion Patient feels weak today Patient denies fever headache chest pain I am seeing the patient for CHF exacerbation Exam Narrative: Exam Narrative: Alert Chest bilateral basal crackles Abdomen nontender nondistended CVS S1 + S2 Positive Lower extremity edema Objective Data Vital Signs Vital Signs: Vital Signs - 24 hr 01/19/21 12:00 01/19/21 12:24 01/19/21 14:00 Temperature 96.7 F L Pulse Rate 106 H 106 H 116 H Respiratory Rate 17 17 Blood Pressure 99/81 L Pulse Oximetry 98 98 01/19/21 16:00 01/19/21 16:54 01/19/21 18:00 Temperature 97.2 F L 97.2 F L Pulse Rate 98 98 106 H Respiratory Rate 20 20 Blood Pressure 127/78 127/78 Pulse Oximetry 100 100 01/19/21 18:18 01/19/21 18:50 01/19/21 20:00 Temperature 97.6 F Pulse Rate 121 H 125 H 116 H Respiratory Rate 20 Blood Pressure 131/69 Pulse Oximetry 95 01/19/21 22:00 01/19/21 22:51 01/19/21 23:57 Temperature 97.8 F Pulse Rate 110 H 130 H 100 Respiratory Rate 20 Blood Pressure 107/77 Pulse Oximetry 95 01/20/21 00:00 01/20/21 01:35 01/20/21 04:00 Temperature 97.8 F Pulse Rate 104 H 96 101 H Respiratory Rate 20 Blood Pressure 99/75 L Pulse Oximetry 97 01/20/21 05:48 01/20/21 05:51 01/20/21 06:00 Temperature Pulse Rate 93 111 H Respiratory Rate Blood Pressure 119/67 Pulse Oximetry 01/20/21 08:00 Temperature 98.8 F Pulse Rate 96 Respiratory Rate 16 Blood Pressure 109/83 Pulse Oximetry 100 Intake/Output Intake/Output: Intake & Output 01/17/21 01/18/21 01/19/21 01/20/21 23:59 23:59 23:59 23:59 Intake Total 1890 1793.5 450 Output Total 4600 5475 800 Balance -2710 -3681.5 -350 Meds/Results Medications: Active Medications Generic Name Dose Route Start Last Admin Trade Name Freq PRN Reason Stop Dose Admin Furosemide 40 mg 01/19/21 17:00 01/20/21 09:25 Furosemide 40 Mg Tablet PO 40 mg BID MORRIS Administration Lisinopril 5 mg 01/19/21 09:00 01/20/21 09:24 Lisinopril 5 Mg Tablet PO 5 mg QAM MORRIS Administration Metoprolol Tartrate 5 mg 01/18/21 15:34 01/19/21 18:50 Metoprolol Tartrate Inj 5 Mg/5 Ml Vial IV PUSH 5 mg Q1H PRN Administration Heart rate >150 Metoprolol Tartrate 50 mg
[2021-01-20 12:12] LABS: Basophils Percent Auto 0.4 % (0.2-1.2); Eosinophils Percent Auto 0.4 % (0-4.4); Hematocrit 49.6 % (42.0-52.0); Immature Granulocyte Absolute 0.08 K/mm3 (0.00-0.031); Immature Granulocyte Percent A 0.8 % (0-0.5); Lymphocytes Absolute Auto 1.58 K/mm3 (0.9-3.2); Lymphocytes Percent Auto 15.9 % (18.3-44.2); Mean Corpuscular HGB Conc 32.3 g/dl (32-36); Mean Corpuscular Hemoglobin 32.3 pg (26-34); Monocytes Absolute Auto 0.9 K/mm3 (0.1-0.6); Monocytes Percent Auto 9.3 % (2.6-8.5); Neutrophils Absolute Auto 7.3 K/mm3 (1.3-6.7); Neutrophils Percent Auto 73.2 % (45.5-73.1); Platelet Count Result 188 k/mm3 (150-375); Red Blood Count 4.96 M/mm3 (4.6-6.20); Red Cell Distribution Width 13.5 % (11.5-14.5)
[2021-01-20 12:25] LABS: Alanine Aminotransferase 93 U/L (4-50); Albumin Level 3.6 g/dL (3.5-5.1); Alkaline Phosphatase 31 U/L (38-126); Anion Gap 4 mmol/L (8-16); Aspartate Amino Transferase 33 U/L (17-59); Bilirubin,Total 0.6 mg/dL (0.2-1.3); Blood Urea Nitrogen 13 mg/dL (9-20); Calcium 8.8 mg/dL (8.4-10.2); Carbon Dioxide 32 mmol/L (22-30); Chloride 104 mmol/L (98-107); Estimated CRCL calculation 92 ml/min; Estimated Glomerular Filt Rate > 60; Glucose 103 mg/dL (75-110); Potassium 4.7 mmol/L (3.4-5.0); Sodium 140 mmol/L (137-145)
--- NOTE | 2021-01-20 15:05 | PC.NURSE ---
Patient left floor @1500 for cardioversion.
--- NOTE | 2021-01-20 15:50 | WPDMODSED ---
Moderate Sedation Note-Pt Data Patient Data Diagnosis: Atrial fibrillation felt to be of recent onset with cardiomyopathy Present Complaint: Dyspnea/edema Procedure to be performed/Plan: BRENDAN/cardioversion Allergies Allergy/AdvReac Type Severity Reaction Status Date / Time No Known Allergies Allergy Verified 01/17/21 14:42 Home Medications Medication Instructions Recorded Confirmed Type diclofenac sodium 75 mg PO DAILY PRN 01/17/21 01/17/21 History hydromorphone 2 mg PO BID 01/17/21 01/17/21 History morphine 30 mg PO BID 01/17/21 01/17/21 History sumatriptan succinate 100 mg PO DAILY PRN 01/17/21 01/17/21 History testosterone 1 pump TOPICAL DAILY 01/17/21 01/17/21 History Current Medications: Active Medications Furosemide (Furosemide 40 Mg Tablet) 40 mg PO BID [facility] Last Admin: 01/20/21 09:25 Dose: 40 mg Documented by: Lisinopril (Lisinopril 5 Mg Tablet) 5 mg PO QAM [facility] Last Admin: 01/20/21 09:24 Dose: 5 mg Documented by: Metoprolol Tartrate (Metoprolol Tartrate Inj 5 Mg/5 Ml Vial) 5 mg IV PUSH Q1H PRN PRN Reason: Heart rate >150 Last Admin: 01/19/21 18:50 Dose: 5 mg Documented by: Metoprolol Tartrate (Metoprolol Tartrate 50 Mg Tab) 50 mg PO Q8HR [facility] Last Admin: 01/20/21 05:51 Dose: 50 mg Documented by: Morphine Sulfate (Morphine Sulfate (*Crx) 2 Mg/Ml Inj) 2 mg IV PUSH Q4H PRN PRN Reason: Pain Rated 7-10 Last Admin: 01/20/21 12:51 Dose: 2 mg Documented by: Morphine Sulfate (Morphine Sulfate (*Crx) 30 Mg Tabcr) 30 mg PO Q12HR [facility] Last Admin: 01/20/21 09:24 Dose: 30 mg Documented by: Naloxone HCl (Naloxone Hcl 0.4 Mg/Ml Vial) 0.1 mg IV PUSH Q2M PRN PRN Reason: Opiate Reversal Ondansetron HCl (Ondansetron Inj 4 Mg/2 Ml Vial) 4 mg IV PUSH Q6H PRN PRN Reason: Nausea And Vomiting Rivaroxaban (Rivaroxaban 20 Mg Tablet) 20 mg PO DAILY@1700 [facility] Last Admin: 01/19/21 18:18 Dose: 20 mg Documented by: Spironolactone (Spironolactone 25 Mg Tablet) 25 mg PO QAM [facility] Last Admin: 01/20/21 09:25 Dose: 25 mg Documented by: Sumatriptan Succinate (Sumatriptan Succinate 25 Mg Tablet) 100 mg PO DAILY PRN PRN Reason: Headache Sedation/Anesthesia: No previous sedation/anesthesia problems (including family history). [facility] Past Medical History Medical History (Updated 01/19/21 @ 09:19 by JIM Whiting) Arrhythmia Back pain Spinal cord stimulator status Surgical History Surgical History (Updated 01/17/21 @ 21:06 by Anusha Keith NP) H/O laminectomy H/O: knee surgery Bilaterally History of appendectomy History of bilateral carpal tunnel release History of hip replacement On the left Family History Family History Father Family history of cardiac disorder Malignant neoplasm of prostate Family history of heart disease in male family member before age 55 Family history of malignant neoplasm Sibling Family history of malignant neoplasm of breast in first degree relative Mother Family history of malignant neoplasm Social History Social History (Updated 01/17/21 @ 21:08 by Anusha Keith NP) Social History: The patient lives with his . He has 2 biological children and 3 step children. The patient is disabled. His is the durable power energy attorney for healthcare. Patient desires to be a full code. The patient says that he has the medical marijuana card but is not using it because marijuana does not work for him. He does go to pain management. He denies any tobacco or alcohol or illicit drugs. Smoking status: Never smoker Alcohol intake: current Drinks per week: 8 Substance use: never Substance use type: does not use Gender identity (if verbalized by the patient): Male Spiritual care concerns: No Mod Sed Physical Exam Physical Exam Pre Procedural Exam: Normal: Appearance, Nose, Neck, Throat, Airway, Lungs, Neuro Exam and Extremities and Variation: Heart Size (PMI laterally displ
--- NOTE | 2021-01-20 16:20 | WPDCARDPROC ---
Cardiac Cath Procedure Note Date of procedure:: 01/20/21 Performing physician:: Rene Stringer MD Indication:: Atrial fibrillation Dilated cardiomyopathy Brief clinical history:: This is a 50-year-old man without previous cardiac history who was hospitalized with shortness of breath found to have atrial fibrillation of unknown chronicity. He also unfortunately by echo has been found to have a severe dilated cardiomyopathy. In this setting an attempt at restoring sinus rhythm has been recommended with MARCUS/cardioversion. Procedure Procedure performed:: Marcus/cardioversion Sedation/Medication given:: Intravenous propofol and aliquots total dosage of 100 mg given Estimated blood loss:: No blood loss Procedure note:: Patient was sedated with propofol and initial dose of 70 mg was given which provided very good sedation. Prior to this the oropharynx was sprayed with benzocaine and a bite block was in position. Following this the MARCUS probe was advanced into the esophagus and imaging was performed. There was significant enlargement of the left ventricle with global hypokinesia, marked left atrial enlargement with evidence of spontaneous contrast/smoke. There was no visible thrombus however. Following this the MARCUS probe was withdrawn and the patient was cardioverted with 200 joules in a synchronized fashion x1 shock which restored sinus rhythm for about 10 seconds. After this he lapsed immediately back into atrial fibrillation. Findings:: MARCUS/cardioversion which was successful in restoring sinus rhythm but which lasted for only a transient amount of time and laps back in atrial fibrillation. Conclusion:: As above Successful MARCUS cardioversion with only transient anabaptist of sinus activity. Rene Stringer MD [facility]
--- NOTE | 2021-01-20 16:54 | PC.NURSE ---
Patient arrived back on IMU Rm 200 @1645.
[2021-01-20] MEDS: RIVAROXABAN 20 MG TABLET PO (16:57)
[2021-01-20] MEDS: AMIODARONE HCL 200 MG TABLET 400 MG PO (17:10)
[2021-01-21] VITALS (20 sets, daily range): BP systolic 100–119; BP diastolic 63–79; PULSE 78–153; RESP 18–20; TEMP 36–36.6; O2SAT 98–100
[2021-01-21] MEDS: MORPHINE SULFATE (*CRX) 2 MG/ML INJ IV PUSH ×2 (00:53→14:28)
[2021-01-21] MEDS: AMIODARONE HCL 200 MG TABLET 400 MG PO ×2 (06:10→17:30)
[2021-01-21] MEDS: METOPROLOL TARTRATE 50 MG TAB PO (06:10)
[2021-01-21] MEDS: lisinopriL 5 MG TABLET PO (08:46)
[2021-01-21] MEDS: FUROSEMIDE 40 MG TABLET PO (08:46)
[2021-01-21] MEDS: MORPHINE SULFATE (*CRX) 30 MG TABCR PO ×2 (08:46→21:35)
[2021-01-21] MEDS: SPIRONOLACTONE 25 MG TABLET PO (08:46)
--- NOTE | 2021-01-21 09:25 | PM.DS ---
DS: Admitting Diagnosis Admitting Diagnosis Admitting Diagnosis: Shortness of breath DS: Discharge Diagnosis Discharge Diagnosis (1) Atrial fibrillation: Qualifiers: Atrial fibrillation type: paroxysmal Qualified Code(s): I48.0 - Paroxysmal atrial fibrillation Code(s): I48.91 - Unspecified atrial fibrillation Status: Inactive Assessment and Plan: This is a new onset that the patient is aware of new onset therapeutic Lovenox echo cardiology consult Cardizem drip echo shows ejection fraction 30-35% discussed with Cardiology plan for ischemic workup as outpatient patient Patient will be discharged on Lasix 40 mg daily DC lisinopril due to hypertension Patient had michael cardioversion during hospitalization also started amiodarone. (2) Peripheral edema: Code(s): R60.9 - Edema, unspecified Status: Acute Assessment and Plan: Acute on top of chronic systolic CHF exacerbation with ejection fraction 30-35% follow-up with cardiology as outpatient may need ischemic workup discussed with cardiology patient . (3) Back pain: Code(s): M54.9 - Dorsalgia, unspecified Status: Chronic Assessment and Plan: Will continue with patient's morphine and do p.r.n. IV morphine for breakthrough pain. The patient stated that he has had at least 6 back surgeries in the past. He does see pain management. Patient has a medical marijuana card but states that the marijuana does not help. DS: Summary Hospital Course Hospital Course: Patient was admitted to the hospital with shortness of breath was found to have AFib and CHF exacerbation treated with IV Lasix Cardizem drip patient had michael cardioversion patient will be discharged on diuretics beta-selina amiodarone follow-up with cardiology as outpatient Time Spent with Patient Time attestation: Total time spent providing and/or coordinating discharge services: Exam Narrative: Exam Narrative: Alert Chest no wheeze crackles Abdomen nontender nondistended CVS S1 + S2 Significantly decreased Lower extremity edema DS: Data Data Completed and Pending Labs on day of discharge: Labs from last 24 hours 01/20/21 01/20/21 11:37 11:37 WBC 10.0 RBC 4.96 Hgb 16.0 Hct 49.6 MCV 100.0 MCH 32.3 MCHC 32.3 RDW 13.5 Plt Count 188 MPV 12.0 H Immature Gran % (Auto) 0.8 H Neut % (Auto) 73.2 H Lymph % (Auto) 15.9 L [place] % (Auto) 9.3 H Eos % (Auto) 0.4 Baso % (Auto) 0.4 Lymph # (Auto) 1.58 [place] # (Auto) 0.9 H Eos # (Auto) 0.0 Baso # (Auto) 0.0 Abs Immat Gran (auto) 0.08 H Absolute Neuts (auto) 7.3 H Absolute Nucleated RBC 0.0 Nucleated RBC % 0.0 Sodium 140 Potassium 4.7 Chloride 104 Carbon Dioxide 32 H Anion Gap 4 L BUN 13 Creatinine 1.00 Estim Creat Clear Calc 92 Estimated GFR > 60 Glucose 103 Calcium 8.8 Total Bilirubin 0.6 AST 33 ALT 93 H Alkaline Phosphatase 31 L Total Protein 6.0 L Albumin 3.6 Discharge Plan Discharge Attending physician on discharge: Abdirashid Hodgson M.A. Consulting providers: Rene Stringer Discharging Clinician: Abdirashid Hodgson M.A. Patient Disposition: Home, Self-Care Activity: no preference Diet: heart healthy, diabetic and low sodium Patient Instructions: Antibiotic Form, Rivaroxaban (By mouth) Stand Alone Forms: General Discharge Information Follow-up/Referrals: Rene Stringer MD [Physician] - Mateo Walters MD [Primary Care Provider] - Discharge Medications: New spironolactone 25 mg Tablet 25 mg PO QAM Qty: 30 RF: 0 Xarelto 20 mg Tablet 20 mg PO DAILY@1700 Qty: 30 RF: 0 furosemide 40 mg Tablet 40 mg PO DAILY Qty: 30 RF: 0 Continued morphine 30 mg tablet extended release 30 mg PO BID RF: 0 hydromorphone 2 mg tablet 2 mg PO BID RF: 0 testosterone 20.25 mg/1.25 gram (1.62 %) gel in metered-dose pump 1 pump topical DAILY RF: 0
--- NOTE | 2021-01-21 10:43 | PM.PNCARD ---
Progress Note: A&P Assessment and Plan (1) Atrial fibrillation with RVR: Code(s): I48.91 - Unspecified atrial fibrillation Status: Acute Assessment and Plan: Patient is status post failed DC cardioversion. Currently heart rates are in 90s. At this time, rate control and anticoagulation strategy will be pursued. Due to patient's CHF, will initiate on carvedilol [id number] to be optimized as tolerated; and continue anticoagulation with rivaroxaban. Patient has been initiated on loading dose of amiodarone, which will be continued, and dose adjustment will be done as an outpatient. (2) Heart failure with reduced ejection fraction: Code(s): I50.20 - Unspecified systolic (congestive) heart failure Status: Acute Assessment and Plan: Patient found to have CHF with reduced ejection fraction with LVEF 30-35%. Additional workup for patient's cardiomyopathy will be performed as an outpatient. Optimal, tolerable medical treatment for CHF with reduced ejection fraction. Recommend following cardiac medications on discharge- Carvedilol 3.125 mg p.o. b.i.d.-dose to be adjusted as an outpatient Sacubitril/valsartan 24/26 mg p.o. b.i.d.-dose to be optimized as an outpatient as tolerated Spironolactone 25 mg p.o. daily Furosemide 40 mg p.o. q.a.m. Amiodarone 400 mg p.o. b.i.d.-dose to be adjusted as an outpatient Rivaroxaban 20 mg p.o. with evening meal The management plan was discussed with the patient, his family and with the hospitalist team. Patient advised to monitor blood pressure at home, and call our office with any questions. Medication compliance counseling was done. Patient was advised to follow-up with Dr. Stringer in outpatient cardiology clinic 2-3 weeks or sooner if needed. Subjective Date/time seen: 01/21/21 10:43 Date of service: 01/21/2021 Interval history: Patient underwent attempted DC cardioversion yesterday with failure to restore sinus rhythm. He remains in atrial fibrillation with heart rates in 90s. He reports improvement in his shortness of breath. Denies chest pain. Denies palpitations, dizziness or syncope. Exam Narrative: Exam Narrative: PHYSICAL EXAMINATION: GENERAL: Alert, oriented, no acute distress MENTAL STATUS: affect appropriate to mood EYES: Extraocular movements intact, no pallor EARS: External ears appear normal, hearing grossly normal NOSE: Normal and patent, no discharge MOUTH: Mucous membranes moist, tongue normal NECK: Supple, no JVD CHEST: Good respiratory effort, clear to auscultation HEART: Irregularly irregular rhythm ABDOMEN: Soft, nontender NEUROLOGICAL: Alert, oriented, normal speech, no gross motor deficits MUSCULOSKELETAL: No major deformity, no amputation EXTREMITIES: No pedal edema, no clubbing, no cyanosis SKIN: no rash on the exposed area, no cyanosis PSYCHIATRIC: Normal mood, appropriate affect Objective Data Vital Signs Vital Signs: Vital Signs - 24 hr 01/20/21 12:00 01/20/21 14:00 01/20/21 16:00 Temperature 36.3 C L Pulse Rate 66 105 H 115 H Respiratory Rate 18 20 Blood Pressure 120/91 H 121/99 H Pulse Oximetry 98 100 01/20/21 16:05 01/20/21 16:15 01/20/21 16:30 Temperature 36.3 C L Pulse Rate 107 H 110 H 100 Respiratory Rate 20 20 20 Blood Pressure 120/98 H 113/81 118/86 Pulse Oximetry 93 100 100 01/20/21 16:38 01/20/21 16:56 01/20/21 17:00 Temperature 36.3 C L 36.4 C Pulse Rate 100 104 H 90 Respiratory Rate 20 18 Blood Pressure 118/86 102/70 Pulse Oximetry 100 100 01/20/21 17:10 01/20/21 18:00 01/20/21 19:00 Temperature 36.5 C 36.3 C L Pulse Rate 93 99 107 H Respiratory Rate 18 18 Blood Pressure 117/75 114/79 Pulse Oximetry 100 99 01/20/21 19:30 01/20/21 20:00 01/20/21 21:10 Temperature 36.6 C Pulse Rate 96 96 Respiratory Rate 21 H 21 H Blood Pressure 99/69 L 100/70 Pulse Oximetry 99 01/20/21 21:13 01/20/21 22:00 01/21/21 00:00 Temperature 36.6 C Puls
[2021-01-21 11:13] LABS: Basophils Absolute Auto 0.1 K/mm3 (0.0-0.1); Basophils Percent Auto 0.6 % (0.2-1.2); Eosinophils Absolute Auto 0.1 K/mm3 (0-0.3); Eosinophils Percent Auto 0.7 % (0-4.4); Immature Granulocyte Absolute 0.06 K/mm3 (0.00-0.031); Immature Granulocyte Percent A 0.6 % (0-0.5); Lymphocytes Absolute Auto 1.38 K/mm3 (0.9-3.2); Mean Corpuscular HGB Conc 32.7 g/dl (32-36); Mean Corpuscular Hemoglobin 32.4 pg (26-34); Monocytes Absolute Auto 0.9 K/mm3 (0.1-0.6); Monocytes Percent Auto 9.5 % (2.6-8.5); Neutrophils Absolute Auto 7.3 K/mm3 (1.3-6.7); Neutrophils Percent Auto 74.6 % (45.5-73.1); Platelet Count Result 228 k/mm3 (150-375); Red Blood Count 5.25 M/mm3 (4.6-6.20); Red Cell Distribution Width 13.4 % (11.5-14.5); White Blood Count 9.9 K/mm3 (4.5-10.0)
[2021-01-21 11:23] LABS: Alanine Aminotransferase 79 U/L (4-50); Albumin Level 3.7 g/dL (3.5-5.1); Alkaline Phosphatase 33 U/L (38-126); Anion Gap 5 mmol/L (8-16); Aspartate Amino Transferase 32 U/L (17-59); Bilirubin,Total 0.5 mg/dL (0.2-1.3); Blood Urea Nitrogen 15 mg/dL (9-20); Calcium 9.1 mg/dL (8.4-10.2); Carbon Dioxide 30 mmol/L (22-30); Chloride 103 mmol/L (98-107); Estimated CRCL calculation 92 ml/min; Estimated Glomerular Filt Rate > 60; Glucose 111 mg/dL (75-110); Potassium 4.7 mmol/L (3.4-5.0); Sodium 138 mmol/L (137-145)
[2021-01-21] MEDS: RIVAROXABAN 20 MG TABLET PO (17:31)
[2021-01-21] MEDS: carvediloL 3.125 MG TABLET PO (21:34)
[2021-01-21] MEDS: SACUBITRIL/VALSARTAN 24-26 MG TABLET 1 TAB PO (21:35)
[2021-01-22] VITALS (9 sets, daily range): BP systolic 100–104; BP diastolic 51–65; PULSE 79–117; RESP 20; TEMP 36.2–36.4; O2SAT 99
[2021-01-22] MEDS: MORPHINE SULFATE (*CRX) 2 MG/ML INJ IV PUSH (00:54)
[2021-01-22] MEDS: AMIODARONE HCL 200 MG TABLET 400 MG PO (06:05)
[2021-01-22] MEDS: carvediloL 3.125 MG TABLET PO (08:15)
[2021-01-22] MEDS: MORPHINE SULFATE (*CRX) 30 MG TABCR PO (08:15)
[2021-01-22] MEDS: FUROSEMIDE 40 MG TABLET PO (08:16)
[2021-01-22] MEDS: SACUBITRIL/VALSARTAN 24-26 MG TABLET 1 TAB PO (08:16)
[2021-01-22] MEDS: SPIRONOLACTONE 25 MG TABLET PO (08:18)
--- NOTE | 2021-01-22 10:09 | PM.DS ---
DS: Admitting Diagnosis Admitting Diagnosis Admitting Diagnosis: Shortness of breath DS: Discharge Diagnosis Discharge Diagnosis (1) Atrial fibrillation: Qualifiers: Atrial fibrillation type: paroxysmal Qualified Code(s): I48.0 - Paroxysmal atrial fibrillation Code(s): I48.91 - Unspecified atrial fibrillation Status: Inactive Assessment and Plan: This is a new onset that the patient is aware of new onset therapeutic Lovenox echo cardiology consult Cardizem drip echo shows ejection fraction 30-35% discussed with Cardiology plan for ischemic workup as outpatient patient Patient will be discharged on Lasix 40 mg daily Coreg and Entresto spironolactone amiodarone rivaroxaban Patient had michael cardioversion during hospitalization also started amiodarone. Cardiology Recommend following cardiac medications on discharge- Carvedilol 3.125 mg p.o. b.i.d.-dose to be adjusted as an outpatient Sacubitril/valsartan 24/26 mg p.o. b.i.d.-dose to be optimized as an outpatient as tolerated Spironolactone 25 mg p.o. daily Furosemide 40 mg p.o. q.a.m. Amiodarone 400 mg p.o. b.i.d.-dose to be adjusted as an outpatient Rivaroxaban 20 mg p.o. with evening meal (2) Peripheral edema: Code(s): R60.9 - Edema, unspecified Status: Acute Assessment and Plan: Acute on top of chronic systolic CHF exacerbation with ejection fraction 30-35% follow-up with cardiology as outpatient may need ischemic workup discussed with cardiology patient . (3) Back pain: Code(s): M54.9 - Dorsalgia, unspecified Status: Chronic Assessment and Plan: Will continue with patient's morphine and do p.r.n. The patient stated that he has had at least 6 back surgeries in the past. He does see pain management. Patient has a medical marijuana card but states that the marijuana does not help. Avoid NSAID as patient has been started on oral anticoagulation DS: Summary Hospital Course Hospital Course: Patient was admitted to the hospital with shortness of breath was found to have acute on top of chronic systolic CHF exacerbation AFib with RVR cardiology was consulted patient was treated with Cardizem drip Lovenox IV diuresis condition improved but patient continued to have AFib with RVR cardioversion michael was done patient continued to be in AFib rate controlled plan to follow-up with cardiology as outpatient Patient will be discharged on diuretics and anticoagulation Follow-up with cardiology and PCP as outpatient Time Spent with Patient Time attestation: Total time spent providing and/or coordinating discharge services: Exam Narrative: Exam Narrative: Alert Chest no wheeze crackles Abdomen nontender nondistended CVS S1 + S2 Significantly decreased Lower extremity edema DS: Data Data Completed and Pending Labs on day of discharge: Labs from last 24 hours 01/21/21 01/21/21 11:06 11:06 WBC 9.9 RBC 5.25 Hgb 17.0 Hct 52.0 MCV 99.0 MCH 32.4 MCHC 32.7 RDW 13.4 Plt Count 228 MPV 11.0 H Immature Gran % (Auto) 0.6 H Neut % (Auto) 74.6 H Lymph % (Auto) 14.0 L [place] % (Auto) 9.5 H Eos % (Auto) 0.7 Baso % (Auto) 0.6 Lymph # (Auto) 1.38 [place] # (Auto) 0.9 H Eos # (Auto) 0.1 Baso # (Auto) 0.1 Abs Immat Gran (auto) 0.06 H Absolute Neuts (auto) 7.3 H Absolute Nucleated RBC 0.0 Nucleated RBC % 0.0 Sodium 138 Potassium 4.7 Chloride 103 Carbon Dioxide 30 Anion Gap 5 L BUN 15 Creatinine 1.00 Estim Creat Clear Calc 92 Estimated GFR > 60 Glucose 111 H Calcium 9.1 Total Bilirubin 0.5 AST 32 ALT 79 H Alkaline Phosphatase 33 L Total Protein 6.0 L Albumin 3.7 Discharge Plan Discharge Attending physician on discharge: Abdirashid Hodgson M.A. Consulting providers: Rene Stringer Discharging Clinician: Abdirashid Hodgson M.A. Patient Disposition: Home, Self-Care Activity: no preference Diet: heart healthy, di
--- NOTE | 2021-01-22 11:13 | PM.PNCARD ---
Progress Note: A&P Assessment and Plan (1) Atrial fibrillation with RVR: Code(s): I48.91 - Unspecified atrial fibrillation Status: Acute Assessment and Plan: Patient is status post failed DC cardioversion. Currently heart rates are in 90s with episodes of AFib with RVR with activity. At this time, rate control and anticoagulation strategy will be pursued. Due to patient's CHF, he was initiated on carvedilol [id number] to be optimized as tolerated; continue anticoagulation with rivaroxaban. Patient has been initiated on loading dose of amiodarone, which will be continued, and dose adjustment will be done as an outpatient. (2) Heart failure with reduced ejection fraction: Code(s): I50.20 - Unspecified systolic (congestive) heart failure Status: Acute Assessment and Plan: Patient found to have CHF with reduced ejection fraction with LVEF 30-35%. Additional workup for patient's cardiomyopathy will be performed as an outpatient. Optimal, tolerable medical treatment for CHF with reduced ejection fraction. Recommend following cardiac medications on discharge- Carvedilol 3.125 mg p.o. b.i.d.-dose to be adjusted as an outpatient Sacubitril/valsartan 24/26 mg p.o. b.i.d.-dose to be optimized as an outpatient as tolerated Spironolactone 25 mg p.o. daily Furosemide 40 mg p.o. q.a.m. Amiodarone 400 mg p.o. b.i.d.-dose to be adjusted as an outpatient Rivaroxaban 20 mg p.o. with evening meal I spoke with patient and his again today, and discussed the management plan. Patient has history of excessive alcohol intake. He was advised to avoid alcohol for now. Medication compliance counseling was done. Patient was advised to follow-up with Dr. Stringer in outpatient cardiology clinic 2-3 weeks or sooner if needed. Subjective Date/time seen: 01/22/21 11:13 Date of Service: 01/22/2021 Interval history: Patient denies chest pain or shortness of breath. His heart rate has been mostly controlled, except spikes in the ventricular rate when he does some activity. Exam Narrative: Exam Narrative: PHYSICAL EXAMINATION: GENERAL: Alert, oriented, no acute distress MENTAL STATUS: affect appropriate to mood EYES: Extraocular movements intact, no pallor EARS: External ears appear normal, hearing grossly normal NOSE: Normal and patent, no discharge MOUTH: Mucous membranes moist, tongue normal NECK: Supple, no JVD CHEST: Good respiratory effort, clear to auscultation HEART: Irregularly irregular rhythm ABDOMEN: Soft, nontender NEUROLOGICAL: Alert, oriented, normal speech, no gross motor deficits MUSCULOSKELETAL: No major deformity, no amputation EXTREMITIES: No pedal edema, no clubbing, no cyanosis SKIN: no rash on the exposed area, no cyanosis PSYCHIATRIC: Normal mood, appropriate affect Objective Data Vital Signs Vital Signs: Vital Signs - 24 hr 01/21/21 11:50 01/21/21 12:00 01/21/21 14:00 Temperature 36.2 C L Pulse Rate 98 102 H 112 H Respiratory Rate 18 18 Blood Pressure 103/79 Pulse Oximetry 100 100 01/21/21 15:58 01/21/21 16:00 01/21/21 17:30 Temperature 36.4 C L Pulse Rate 110 H 94 119 H Respiratory Rate 18 18 Blood Pressure 106/72 Pulse Oximetry 99 99 01/21/21 18:00 01/21/21 20:00 01/21/21 21:34 Temperature 36.2 C L Pulse Rate 109 H 153 H 124 H Respiratory Rate 18 Blood Pressure 109/63 Pulse Oximetry 100 01/21/21 22:00 01/21/21 23:42 01/21/21 23:49 Temperature 36.0 C L Pulse Rate 108 H 89 89 Respiratory Rate 18 18 Blood Pressure 119/77 Pulse Oximetry 100 100 01/22/21 00:00 01/22/21 02:00 01/22/21 04:00 Temperature 36.2 C L Pulse Rate 93 83 98 Respiratory Rate 20 Blood Pressure 104/65 Pulse Oximetry 99 01/22/21 06:00 01/22/21 06:05 01/22/21 07:12 Temperature 36.4 C L Pulse Rate 88 90 83 Respiratory Rate 20 Blood Pressure 100/51 L Pulse Oximetry 99 01/22/21 08:00 01/22/21 08:15 01/22/21 10:0
== END 2021-01-22 11:30 | disposition home or self-care (01) | DRG 308 ==
PROVIDERS: Nurse Practitioner; Specialist; Admitting Provider Internal Medicine; PCP Internal Medicine; Visit Provider Internal Medicine
PROC: 5A2204Z Restoration of Cardiac Rhythm, Single (ICD-10-PCS; CPT 93312; principal; 2021-01-20 13:00)
PROC: 5A2204Z Restoration of Cardiac Rhythm, Single (ICD-10-PCS; 2021-01-20 13:00)
DX: I48.0 Paroxysmal atrial fibrillation (principal); I50.23 Acute on chronic systolic (congestive) heart failure; M54.9 Dorsalgia, unspecified; I42.0 Dilated cardiomyopathy; Z79.899 Other long term (current) drug therapy
CPT/HCPCS: 36415; 80048; 80053; 81001; 82948; 83735; 84443; 84484; 85025; 92960; 93005; 93312; 93320; 93325; 93970; A9270; C8929; J1650; J1940; J2270; J2704; J7040; Q9957

== ENCOUNTER → 2021-02-17 00:48 | Outpatient (CLI) | payer MEDICARE, MEDICAID, SELFPAY ==
[2021-02-18 16:57] LABS: SARS-CoV-2 RNA PCR Negative
== END ==
PROVIDERS: PCP Internal Medicine; Visit Provider Specialist
DX: Z01.812 Encounter for preprocedural laboratory examination (principal); Z20.822 Contact with and (suspected) exposure to COVID-19
CPT/HCPCS: C9803; U0003; U0005

== ENCOUNTER 2021-02-17 09:49 | Outpatient (CLI) | payer MEDICARE, MEDICAID, SELFPAY ==
[2021-02-17 10:23] LABS: Anion Gap 6 mmol/L (8-16); Blood Urea Nitrogen 23 mg/dL (9-20); Calcium 9.2 mg/dL (8.4-10.2); Carbon Dioxide 30 mmol/L (22-30); Chloride 104 mmol/L (98-107); Estimated Glomerular Filt Rate 58; Glucose 64 mg/dL (75-110); Potassium 4.8 mmol/L (3.4-5.0); Sodium 140 mmol/L (137-145)
== END 2021-02-17 09:50 | disposition home or self-care (01) ==
PROVIDERS: PCP Internal Medicine; Visit Provider Nurse Practitioner Adult Health
DX: I42.0 Dilated cardiomyopathy (principal)
CPT/HCPCS: 36415; 80048; C9803; U0003; U0005

== ENCOUNTER 2021-02-20 00:33 | Day surgery (SDC) | payer MEDICARE, MEDICAID, SELFPAY ==
[2021-02-17 14:45] VITALS: BMI 30.6
[2021-02-20] VITALS (8 sets, daily range): BP systolic 81–112; BP diastolic 56–78; PULSE 43–82; RESP 13–19; TEMP 35.8; O2SAT 98–100; BMI 31.8
--- NOTE | 2021-02-20 | ECG_ITS ---
Measurements Intervals [place] Rate: 47 P: 162 MD: 359 QRS: 24 QRSD: 98 T: 120 QT: 462 QTc: 411 Interpretive Statements SINUS BRADYCARDIA WITH SINUS ARRHYTHMIA CONSIDER INFERIOR INFARCT, AGE INDETERMINATE NONSPECIFIC ST & T-WAVE ABNORMALITY- ANTEROLAT/HIGH LAT LEADS ABNORMAL ECG Electronically Signed On 02-20-2021 9:34:09 CDT by Ty Blackwood D.O.
--- NOTE | 2021-02-20 07:25 | ECG_ITS ---
Measurements Intervals [place] Rate: 65 P: -64 DC: 299 QRS: 14 QRSD: 94 T: 136 QT: 372 QTc: 389 Interpretive Statements ATRIAL FIBRILLATION CONSIER INFERIOR INFARCT, AGE INDETERMINATE BORDERLINE T WAVE ABNORMALITY- ANTEROLAT/HIG HLAT LEADS ABNORMAL ECG Electronically Signed On 02-20-2021 8:00:35 CDT by Ty Blackwood D.O.
[2021-02-20 07:58] LABS: Anion Gap 9 mmol/L (8-16); Blood Urea Nitrogen 20 mg/dL (9-20); Carbon Dioxide 26 mmol/L (22-30); Chloride 103 mmol/L (98-107); Estimated CRCL calculation 97 ml/min; Estimated Glomerular Filt Rate > 60; Glucose 111 mg/dL (75-110); Potassium 4.5 mmol/L (3.4-5.0); Sodium 138 mmol/L (137-145)
--- NOTE | 2021-02-20 08:48 | WPDMODSED ---
Moderate Sedation Note-Pt Data Patient Data Diagnosis: Persistent atrial fibrillation cardiomyopathy suspected due to atrial fib Present Complaint: no complaints Procedure to be performed/Plan: DC cardioversion Allergies Allergy/AdvReac Type Severity Reaction Status Date / Time No Known Allergies Allergy Verified 02/17/21 15:03 Home Medications Medication Instructions Recorded Confirmed Type hydromorphone 2 mg PO TID PRN 01/17/21 02/17/21 History morphine 30 mg PO BID 01/17/21 02/17/21 History sumatriptan succinate 100 mg PO DAILY PRN 01/17/21 02/17/21 History testosterone 1 pump TOPICAL DAILY 01/17/21 02/17/21 History rivaroxaban [Xarelto] 20 mg PO DAILY@1700 #30 tablet 01/19/21 02/17/21 Rx spironolactone 25 mg PO QAM #30 tablet 01/19/21 02/17/21 Rx furosemide 40 mg PO DAILY #30 tablet 01/21/21 02/17/21 Rx amiodarone [Pacerone] 400 mg PO Q12H #80 tablet 01/22/21 02/20/21 Rx carvedilol [Coreg] 3.125 mg PO Q12HR #60 tablet 01/22/21 02/20/21 Rx sacubitril-valsartan [Entresto] 1 tab PO Q12HR #60 tablet 01/22/21 02/17/21 Rx Current Medications: Active Medications Sodium Chloride (Normal Saline Iv) 500 mls @ 30 mls/hr IV CONT .[id number] MORRIS Propofol (Propofol Iv Emulsion 200 Mg/20 Ml Vial) Confirm Administered Dose 200 mg .ROUTE .STK-MED ONE Stop: 02/20/21 08:46 Sedation/Anesthesia: No previous sedation/anesthesia problems (including family history). [facility] Past Medical History Medical History (Updated 01/21/21 @ 10:47 by Rogelio Lopes MD) Arrhythmia Back pain Spinal cord stimulator status Surgical History Surgical History (Updated 01/17/21 @ 21:06 by Anusha Keith NP) H/O laminectomy H/O: knee surgery Bilaterally History of appendectomy History of bilateral carpal tunnel release History of hip replacement On the left Family History Family History Father Family history of cardiac disorder Malignant neoplasm of prostate Family history of heart disease in male family member before age 55 Family history of malignant neoplasm Sibling Family history of malignant neoplasm of breast in first degree relative Mother Family history of malignant neoplasm Social History Social History (Updated 01/17/21 @ 21:08 by Anusha Keith NP) Social History: The patient lives with his . He has 2 biological children and 3 step children. The patient is disabled. His is the durable power assistant city attorney for healthcare. Patient desires to be a full code. The patient says that he has the medical marijuana card but is not using it because marijuana does not work for him. He does go to pain management. He denies any tobacco or alcohol or illicit drugs. Smoking status: Never smoker Alcohol intake: current Drinks per week: 8 Substance use: never Substance use type: does not use Living arrangements: with family Gender identity (if verbalized by the patient): Male Sexual Orientation (if Verbalized by the Patient): Straight or Heterosexual Spiritual care concerns: No Mod Sed Physical Exam Physical Exam Pre Procedural Exam: Normal: Neck, Throat, Airway, Lungs, Heart Size, Heart Rate, Neuro Exam and Extremities and Variation: Appearance ( overweight white male no apparent distress) and Heart Rhythm ( irregularly irregular) Hours since solid foods: 12 Hours since liquid intake: 12 Internal Medicine - PN: Obj Da Vital Signs Vital Signs: Vital Signs - 24 hr 02/20/21 07:42 Temperature 35.8 C L Pulse Rate 72 Respiratory Rate 14 Blood Pressure 102/78 Pulse Oximetry 100 Meds/Results Medications: Active Medications Generic Name Dose Route Start Last Admin Trade Name Umairq PRN Reason Stop Dose Admin Sodium Chloride 500 mls @ 30 mls/hr 02/20/21 07:00 Normal Saline Iv IV CONT .[id number] MORRIS Labs CBC & Chem 7: 02/20/21 07:33 Labs: Laboratory Results - last 24 hr 02/20/21 07:33 Sodium 138
--- NOTE | 2021-02-20 08:57 | P.PCNCC_ITS ---
Cardiac Cath Procedure Note Date of procedure:: 02/20/21 Performing physician:: Rene Stringer MD Indication:: cardiomyopathy related to atrial fibrillation Brief clinical history:: this is a 50-year-old man who was recently in the hospital with shortness of breath he was found to have atrial fibrillation of unknown chronicity and significant left ventricular systolic dysfunction. Attempt at cardioverting during the hospitalization was successful but only momentarily resulting in rapid recurrence of atrial fibrillation. He has now been loaded with amiodarone 400 mg as an outpatient and attempt at restoring sinus rhythm has been recommended. Procedure Procedure performed:: DC cardioversion Sedation/Medication given:: propofol 70 mg Estimated blood loss:: no blood loss Procedure note:: patient was brought to the catheterization lab holding area in the postabsorptive state defibrillator patches were placed in the AP position. Defibrillator was synchronized 200 joules. He was then sedated with propofol 70 mg B was given in aliquots. He was well sedated for the procedure. DC cardioversion was done with 200 joules x1 shock restoring sinus rhythm/ sinus bradycardia. Findings:: As above Conclusion:: successful uncomplicated DC cardioversion of atrial fib using 200 joules x1 shock Rene Stringer MD [facility]
--- NOTE | 2021-02-20 10:43 | SUR.PHASEII ---
Discharge instructions printed and reviewed with patient and . Education provided on sedation, when to notify the doctor, prescription changes, and scheduled follow-up appointments. Patient and verbalize understanding of all information received. PIV removed. Patient escorted to vehicle by staff via wheelchair where he was picked up by his as his ride.
[2021-02-20 22:11] LABS: Magnesium 2.2 mg/dL (1.6-2.3)
== END 2021-02-20 10:40 | disposition home or self-care (01) ==
PROVIDERS: PCP Internal Medicine; Visit Provider Specialist
PROC: 5A2204Z Restoration of Cardiac Rhythm, Single (ICD-10-PCS; principal; 2021-02-20 08:30)
DX: I48.91 Unspecified atrial fibrillation (principal); I42.0 Dilated cardiomyopathy; R00.1 Bradycardia, unspecified; Z96.82 Presence of neurostimulator; R60.0 Localized edema; R06.02 Shortness of breath; Z79.01 Long term (current) use of anticoagulants; Z79.82 Long term (current) use of aspirin
CPT/HCPCS: 36415; 80048; 83735; 92960; 93005; J1644; J2704; J7040

== ENCOUNTER 2021-03-04 20:37 | Inpatient (IN) | payer MEDICARE, MEDICAID, SELFPAY ==
[2021-03-04] VITALS (21 sets, daily range): BP systolic 88–205; BP diastolic 66–189; PULSE 75–144; RESP 14–22; TEMP 36.4–37.1; O2SAT 95–100
--- NOTE | ~2021-03-04 | XR_ITS ---
EXAMINATION: XR chest 2V 03/04/2021 20:58 INDICATION: Chest tightness and dizziness PROCEDURE: 2 view chest COMPARISON: Comparison to multiple prior studies sequentially, with oldest reviewed study dated 04/21. FINDINGS: The lungs are clear. The cardiomediastinal silhouette is within normal limits. There are no pleural effusions. There is no pneumothorax suspected. Neurostimulator leads are identified over lying the thoracic spine. IMPRESSION: 1: NO ACUTE CARDIOPULMONARY DISEASE. Reviewed, dictated and finalized at location A.
--- NOTE | 2021-03-04 20:39 | ECG_ITS ---
Measurements Intervals [place] Rate: 106 P: MT: 0 QRS: 25 QRSD: 120 T: 35 QT: 370 QTc: 493 Interpretive Statements ATRIAL FLUTTER/TACHYCARDIA WITH RAPID VENTRICULAR RESPONSE LEFT BUNDLE BRANCH BLOCK CONSIDER INFERIOR INFARCT, AGE INDETERMINATE BASELINE ARTIFACT- V1, V3-V6 ABNORMAL ECG Electronically Signed On 03-05-2021 7:07:02 CDT by Ty Blackwood D.O.
--- NOTE | 2021-03-04 20:54 | ED.CHESTPAIN ---
HPI - Chest Pain General Chief Complaint: Chest Pain Stated Complaint: elevated heart rate, chest tightness Time Seen by Provider: 03/04/21 20:41 Source: RN notes reviewed History of Present Illness HPI narrative: Patient presents to emergency department from home for irregular heart rate and chest pain. Patient states he has a history of intermittent atrial fibrillation and was cardioverted by Dr. Stringer 2 weeks ago states he been out of the atrial fibrillation until he began to feel he went back into arrhythmia last night states his neck will watch a total of his heart rate been up in the 140s that time he called cardiology and had taken an extra dose of his amiodarone patient states that with his atrial fibrillation he has associated feeling of chest tightness in the midsternal chest as well as shortness of breath and dizziness denies any fevers or chills abdominal pain nausea vomiting or any other symptoms states he has taken all of his medications and took his evening medications at 6 PM tonight Related Data Home Medications Medication Instructions Recorded Confirmed hydromorphone 2 mg PO TID PRN 01/17/21 02/17/21 morphine 30 mg PO BID 01/17/21 02/17/21 sumatriptan succinate 100 mg PO DAILY PRN 01/17/21 02/17/21 testosterone 1 pump TOPICAL DAILY 01/17/21 02/17/21 Allergies Allergy/AdvReac Type Severity Reaction Status Date / Time No Known Allergies Allergy Verified 02/17/21 15:03 Review of Systems Review of Systems: Narrative: Gen.: Denies fevers or chills Eyes: Denies eye pain or visual change ENT: Denies congestion Respiratory: Denies shortness of breath or cough CV: Reports chest pain and palpitations GI: Denies abdominal pain nausea, emesis or diarrhea Musculoskeletal: Denies back pain or muscle pain Neuro: Denies numbness, tingling, weakness or focal weakness reports dizziness Skin: Denies rash Except as documented, all other systems reviewed and negative PMF Past Medical History Medical History Arrhythmia Back pain Spinal cord stimulator status Surgical History Surgical History (Updated 01/17/21 @ 21:06 by Anusha Keith NP) H/O laminectomy H/O: knee surgery Bilaterally History of appendectomy History of bilateral carpal tunnel release History of hip replacement On the left Family History Family History Father Family history of cardiac disorder Malignant neoplasm of prostate Family history of heart disease in male family member before age 55 Family history of malignant neoplasm Sibling Family history of malignant neoplasm of breast in first degree relative Mother Family history of malignant neoplasm Social History Social History Social History: The patient lives with his . He has 2 biological children and 3 step children. The patient is disabled. His is the durable power real estate associate attorney for healthcare. Patient desires to be a full code. The patient says that he has the medical marijuana card but is not using it because marijuana does not work for him. He does go to pain management. He denies any tobacco or alcohol or illicit drugs. Smoking status: Never smoker Alcohol intake: current Drinks per week: 8 Substance use: never Substance use type: does not use Gender identity (if verbalized by the patient): Male Spiritual care concerns: No Exam Narrative: Exam Narrative: APPEARANCE: No acute distress, nontoxic, resting in bed EYES: EOMI HEENT: Normocephalic, atraumatic, OMM RESPIRATORY: No respiratory distress Clear to auscultation bilaterally with no rhonchi wheezing or rales. CARDIOVASCULAR: Irregular and tachycardic without murmurs rubs or gallops. ABDOMINAL: Soft, nontender, nondistended, no rebound or guarding MUSCULOSKELETAl: Moves all extremities. No clubbing, cyanosis or edema. NEUR
--- NOTE | 2021-03-04 20:54 | PC.NURSE ---
Patient taken to xray.
[2021-03-04 21:19] LABS: Basophils Percent Auto 0.5 % (0.2-1.2); Eosinophils Absolute Auto 0.1 K/mm3 (0-0.3); Eosinophils Percent Auto 1.5 % (0-4.4); Hemoglobin 16.4 g/dL (14.0-18.0); Immature Granulocyte Absolute 0.03 K/mm3 (0.00-0.031); Immature Granulocyte Percent A 0.4 % (0-0.5); Lymphocytes Absolute Auto 2.45 K/mm3 (0.9-3.2); Lymphocytes Percent Auto 33.1 % (18.3-44.2); Mean Corpuscular HGB Conc 33.5 g/dl (32-36); Mean Corpuscular Hemoglobin 31.1 pg (26-34); Mean Platelet Volume 10.3 fl (7.4-10.4); Monocytes Absolute Auto 0.9 K/mm3 (0.1-0.6); Monocytes Percent Auto 11.6 % (2.6-8.5); Neutrophils Absolute Auto 3.9 K/mm3 (1.3-6.7); Neutrophils Percent Auto 52.9 % (45.5-73.1); Platelet Count Result 238 k/mm3 (150-375); Red Blood Count 5.27 M/mm3 (4.6-6.20); Red Cell Distribution Width 12.4 % (11.5-14.5); White Blood Count 7.4 K/mm3 (4.5-10.0)
[2021-03-04 21:29] LABS: Prothrombin Time 22.3 Seconds (11.1-14.7)
[2021-03-04 21:30] LABS: Anion Gap 8 mmol/L (8-16); Blood Urea Nitrogen 34 mg/dL (9-20); Carbon Dioxide 27 mmol/L (22-30); Chloride 102 mmol/L (98-107); Estimated CRCL calculation 83 ml/min; Estimated Glomerular Filt Rate 58; Glucose 114 mg/dL (75-110); Partial Thromboplastin Time 47.3 SECONDS (22.3-36.8); Potassium 4.5 mmol/L (3.4-5.0); Sodium 137 mmol/L (137-145)
[2021-03-04 21:37] LABS: NT Pro B Type Natriuretic Pept 914 pg/mL (5-100)
[2021-03-04 21:40] LABS: Troponin I < 0.012 ng/mL (0.000-0.034)
--- NOTE | 2021-03-04 21:43 | ECG_ITS ---
Measurements Intervals [place] Rate: 85 P: ND: 0 QRS: -9 QRSD: 122 T: -13 QT: 385 QTc: 460 Interpretive Statements ATRIAL FIBRILLATION INCOMPLETE LEFT BUNDLE BRANCH BLOCK CONSIDER INFERIOR INFARCT, AGE INDETERMINATE BORDERLINE T WAVE ABNORMALITY- ANT/HIGH LAT LEADS BASELINE ARTIFACT- V3-V6 ABNORMAL ECG Electronically Signed On 03-05-2021 7:08:42 CDT by Ty Blackwood D.O.
--- NOTE | 2021-03-04 23:34 | PC.NURSE ---
This patient, Jamarcus Cardenas, was admitted to IMU Room 202-01. Patient/family oriented to hospital policies and general routines including ID bracelet, bed and alarms, visiting hours, pain management, procedures, bathroom and other care routines, personal items, smoking policy, room service/diet, and visiting hours. Information on how to activate the Rapid Response Team has been discussed. Patient/Family are encouraged to report perceived risks to care and to ask questions if they do not understand what they are told or what they should do.
[2021-03-05] VITALS (18 sets, daily range): BP systolic 86–122; BP diastolic 53–71; PULSE 54–97; RESP 12–18; TEMP 36.5–37.1; O2SAT 97–100
--- NOTE | 2021-03-05 00:31 | PM.IMHP ---
H&P: HPI History of Present Illness Date/Time: 03/05/21 00:31 Chief Complaint: PALPITATIONS Narrative: THIS IS A 50-YEAR-OLD MALE WITH PAST MEDICAL HISTORY SIGNIFICANT FOR ATRIAL FIBRILLATION, ATRIAL FIBRILLATION LEFT VENTRICLE CARDIOMYOPATHY, MIGRAINE HEADACHES, CARDIOVERSION. PATIENT UNDERWENT CARDIOVERSION ON FEBRUARY 20, 2021 WITH CONVERSION TO SINUS RHYTHM HOWEVER PATIENT STATES THAT TODAY HE WAS AT HOME WHEN HIS HEART RATE WENT INTO THE 140'S AND HE WAS BACK INTO ATRIAL FIBRILLATION HE CALLED HIS ENERGY EFFICIENT SITE MANAGER WHO ASKED HIM TO TAKE AN EXTRA DOSE OF AMIODARONE HOWEVER TACHYCARDIA PERSISTED AND PATIENT PRESENTED TO THE EMERGENCY ROOM WHERE HE WAS FOUND TO HAVE ATRIAL FIBRILLATION AND IS EGD SHOWED A HEART RATE OF 85. PATIENT DENIES ANY FEVERS RIGORS CHILLS NAUSEA VOMITING COUGH SPUTUM PRODUCTION SHORTNESS OF BREATH CHEST PAIN DIZZINESS LIGHTHEADEDNESS NEAR SYNCOPE OR SYNCOPE NO CLAUDICATION NO PND NO ORTHOPNEA CARDIOLOGY WAS CONSULTED AND DECISION WAS MADE TO PLACE THE PATIENT IN TELEMETRY UNIT. Review of Systems Review of Systems: Narrative: PALPITATIONS Constitutional: Constitutional: Denies chills, Denies fatigue, Denies fever(s) and Denies weakness Eyes: Eyes: Denies change in vision ENT: Denies dysphagia, Denies nasal congestion, Denies nasal discharge and Denies nasal obstruction Cardiovascular: Cardiovascular: Denies syncope, Reports irregular heart rhythm, Denies radiating jaw, neck or arm pain, Reports palpitations, Denies dyspnea and Denies dyspnea on exertion Respiratory: Respiratory: Denies cough and Denies dyspnea Gastrointestinal: Gastrointestinal: Denies abdominal pain, Denies nausea and Denies vomiting Genitourinary: Genitourinary: Reports no additional male genitourinary complaints Musculoskeletal: Musculoskeletal: Reports no additional musculoskeletal complaints Integumentary/Breasts: Skin/Breast: Reports system reviewed and no additional complaints, except as docu Neurologic: Reports system reviewed and no additional complaints, except as documented Psychiatric: Psychiatric: Reports no additional psychiatric complaints Endocrine: Endocrine: Reports no additional endocrine complaints Hematologic/Lymphatic: Hematologic/Lymphatic: Reports no additional hematologic/lymphatic complaints Allergic/Immunologic: Allergic/Immunologic: Reports no additional allergic/immunologic complaints [facility] Past Medical History Medical History Arrhythmia Back pain Spinal cord stimulator status Surgical History Surgical History (Updated 01/17/21 @ 21:06 by Anusha Keith NP) H/O laminectomy H/O: knee surgery Bilaterally History of appendectomy History of bilateral carpal tunnel release History of hip replacement On the left Family History Family History Father Family history of cardiac disorder Malignant neoplasm of prostate Family history of heart disease in male family member before age 55 Family history of malignant neoplasm Sibling Family history of malignant neoplasm of breast in first degree relative Mother Family history of malignant neoplasm Social History Social History Social History: The patient lives with his . He has 2 biological children and 3 step children. The patient is disabled. His is the durable power rubber mill tender for healthcare. Patient desires to be a full code. The patient says that he has the medical marijuana card but is not using it because marijuana does not work for him. He does go to pain management. He denies any tobacco or alcohol or illicit drugs. Smoking status: Never smoker Second hand tobacco smoke exposure: No Alcohol intake: former Drinks per week: 8 Substance use: never Substance use type: does not use Gender identity (if verbalized by the patient): Male Spiritual care concer
[2021-03-05] MEDS: MORPHINE SULFATE (*CRX) 30 MG TABCR PO ×2 (01:04→12:59)
[2021-03-05 02:23] LABS: Troponin I < 0.012 ng/mL (0.000-0.034)
[2021-03-05 04:09] LABS: Basophils Absolute Auto 0.1 K/mm3 (0.0-0.1); Basophils Percent Auto 0.7 % (0.2-1.2); Eosinophils Absolute Auto 0.1 K/mm3 (0-0.3); Eosinophils Percent Auto 1.5 % (0-4.4); Hematocrit 47.6 % (42.0-52.0); Hemoglobin 15.7 g/dL (14.0-18.0); Immature Granulocyte Absolute 0.03 K/mm3 (0.00-0.031); Immature Granulocyte Percent A 0.4 % (0-0.5); Lymphocytes Absolute Auto 2.68 K/mm3 (0.9-3.2); Lymphocytes Percent Auto 35.6 % (18.3-44.2); Mean Corpuscular Hemoglobin 31.2 pg (26-34); Mean Corpuscular Volume 94.4 fl (80-100); Mean Platelet Volume 10.2 fl (7.4-10.4); Monocytes Absolute Auto 0.9 K/mm3 (0.1-0.6); Monocytes Percent Auto 12.4 % (2.6-8.5); Neutrophils Absolute Auto 3.7 K/mm3 (1.3-6.7); Neutrophils Percent Auto 49.4 % (45.5-73.1); Platelet Count Result 200 k/mm3 (150-375); Red Blood Count 5.04 M/mm3 (4.6-6.20); Red Cell Distribution Width 12.4 % (11.5-14.5); White Blood Count 7.5 K/mm3 (4.5-10.0)
[2021-03-05 04:42] LABS: Anion Gap 8 mmol/L (8-16); Blood Urea Nitrogen 32 mg/dL (9-20); Calcium 8.9 mg/dL (8.4-10.2); Carbon Dioxide 28 mmol/L (22-30); Chloride 101 mmol/L (98-107); Estimated CRCL calculation 89 ml/min; Estimated Glomerular Filt Rate > 60; Glucose 95 mg/dL (75-110); Potassium 4.3 mmol/L (3.4-5.0); Sodium 137 mmol/L (137-145)
[2021-03-05 04:54] LABS: Troponin I < 0.012 ng/mL (0.000-0.034)
[2021-03-05] MEDS: SPIRONOLACTONE 25 MG TABLET PO (07:42)
[2021-03-05] MEDS: FUROSEMIDE 40 MG TABLET PO ×2 (07:42→16:29)
[2021-03-05] MEDS: AMIODARONE HCL 200 MG TABLET PO (07:42)
[2021-03-05] MEDS: SACUBITRIL/VALSARTAN 24-26 MG TABLET 1 TAB PO ×2 (07:42→17:50)
[2021-03-05] MEDS: carvediloL 3.125 MG TABLET PO ×2 (07:43→17:50)
--- NOTE | 2021-03-05 09:15 | PM.IMPN ---
Progress Note: A&P Assessment and Plan (1) Atrial fibrillation with RVR: Code(s): I48.91 - Unspecified atrial fibrillation Status: Acute Assessment and Plan: continue TELEMETRY CONTINUE AMIODARONE and Coreg 01/20 and 02/20 BRENDAN Cardioversion History FOLLOW CARDIOLOGY RECOMMENDATIONS CONTINUE XARELTO ordered EKG for today checking orthostatic vitals x 1 (HR and BP) Future electrophysiology EP study? (2) Chest pain: Code(s): R07.9 - Chest pain, unspecified Status: Acute Assessment and Plan: RESOLVED. PATIENT DENIES CHEST PAIN/pressure AT THE TIME OF MY VISIT NITROGLYCERIN NEEDED LIKELY SECONDARY TO ABNORMAL HEART RATE SUSTAINED AT 140 CHEST PAIN-FREE AT THE TIME OF MY VISIT SUPPORTIVE CARE CONTINUE TO MONITOR INITIAL TROPONINS NEGATIVE x3 Follow cardiology recommendations. (3) Heart failure with reduced ejection fraction: Code(s): I50.20 - Unspecified systolic (congestive) heart failure Status: Acute Assessment and Plan: CONTINUE SPIRONOLACTONE EUVOLEMIA - no new concerns for dehydration at this time. continue Live Vest at discharge. Extremities pink and warm, perfused. Future Cardiac Catherization? (4) Cardiomyopathy: Code(s): I42.9 - Cardiomyopathy, unspecified Status: Acute Assessment and Plan: CONTINUE ENTRESTO Follow cardiology recommendations. (5) Back pain: Code(s): M54.9 - Dorsalgia, unspecified Status: Chronic Assessment and Plan: Chronic. Controlled at this time. STATUS POST LAMINECTOMY AND PAIN STIMULATOR IMPLANTATION CONTINUE MORPHINE 30 MG P.O. B.I.D. CONTINUE HYDROMORPHONE FOR BREAKTHROUGH PAIN Subjective Date/time seen: 03/05/21 09:15 Jamarcus is feeling better today. He denies any chest pressure or pain today. No shortness of breath or dyspnea noted with conversation or activity. Upon review of telemetry, his rhythm appears to be in AFib and with a heart rate of 70s. Ordered a repeat EKG and a set of orthostatic vital signs. Yesterday he stated he was having chest pressure when his heart rate was out of control. He did state that his father and grandfather both had a history of atrial fibrillation. He is concerned about his EF of 30-35%. I did discuss with him that the [facility] may want to give his medications and rate control some time and then repeat his echo, but they may also be considering an EP study electrophysiology study, and also discussed cardiac catheterization. His last Afib RVR episode in December and January was treated with [facility] Dr. Stringer; and during this admission with Afib RVR, [facility] Dr. Cardenas is caring for him. I have encouraged Mr. Hanson to continue to closely follow up with this [facility] group, to take his medications (Amio/Coreg/Xarelto) and wear his LifeVest, and to get any necessary F/U testing done as advised. He stopped drinking and over the last year worked to intentionally lose weight of 45 pounds. Review of Systems Review of Systems: All systems reviewed & are unremarkable except as noted in HPI and below Constitutional: Constitutional: Reports as per HPI, Denies chills, Denies fatigue, Denies fever(s) and Denies weakness Eyes: Eyes: Reports as per HPI and Denies change in vision ENT: Reports as per HPI, Reports Normal hearing present, Denies dysphagia, Denies nasal congestion, Denies nasal discharge and Denies nasal obstruction Cardiovascular: Cardiovascular: Reports as per HPI, Denies chest pain, Denies diaphoresis, Denies syncope, Denies pedal edema, Reports irregular heart rhythm, Denies leg edema, Denies lightheadedness, Denies radiating jaw, neck or arm pain, Denies palpitations, Denies dyspnea and Denies dyspnea on exertion Respiratory: Respiratory: Denies chest congestion, Denies cough, Denies hemoptysis, Denies dyspnea, Denies dyspnea on exertion and Denies wheezing Gastrointestinal: Gastrointestinal: Reports as per HPI, Denies
--- NOTE | 2021-03-05 10:31 | ECG_ITS ---
Measurements Intervals [place] Rate: 77 P: AK: 0 QRS: -1 QRSD: 98 T: 240 QT: 386 QTc: 439 Interpretive Statements ATRIAL FIBRILLATION CONSIDER INFERIOR INFARCT, AGE INDETERMINATE BORDERLINE ST-T WAVE ABNORMALITY- ANTEROLAT/HIGH LAT LEADS ABNORMAL ECG Electronically Signed On 03-05-2021 12:46:56 CDT by Ty Blackwood D.O.
--- NOTE | 2021-03-05 12:38 | PM.CNCAR ---
Assessment and Plan Assessment and plan (1) Atrial fibrillation with RVR: Code(s): I48.91 - Unspecified atrial fibrillation Status: Acute Assessment and Plan: Better controlled Today.. Continue amiodarone and Xarelto. He did go back in atrial fibrillation recently and I think it is prudent to proceed and repeat cardioversion. Will keep him NPO after midnight for cardioversion tomorrow. Sleep apnea may be a van driver to this and so I will order an apnea link (2) Heart failure with reduced ejection fraction: Code(s): I50.20 - Unspecified systolic (congestive) heart failure Status: Acute Assessment and Plan: seems fairly well compensated this point. Continue carvedilol, Entresto, furosemide, spironolactone. (3) Cardiomyopathy: Code(s): I42.9 - Cardiomyopathy, unspecified Status: Acute Assessment and Plan: likely nonischemic and related to AFib with RVR but cannot exclude other etiologies including coronary disease. Continue treat medically for now. Will repeat a 2D echocardiogram with Doppler (4) Chest pain: Code(s): R07.9 - Chest pain, unspecified Status: Acute Assessment and Plan: likely related to atrial fibrillation with rapid ventricular response itself. Still cannot exclude underlying ischemia. Will eventually need at minimum a stress test if not and angiogram (5) Chronic anticoagulation: Code(s): Z79.01 - intermodal customer service (current) use of anticoagulants Status: Acute Assessment and Plan: continue Xarelto. He has not missed any doses (6) MARY ALICE (obstructive sleep apnea): Code(s): G47.33 - Obstructive sleep apnea (adult) (pediatric) Status: Acute Assessment and Plan: his significant other does advocate a history of witnessed apnea and he also states that he used to wake himself up gasping for air. He has lost weight in the symptoms have improved. However given his atrial fibrillation is reasonable and prudent to order an apnea link while in the hospital. Will do so History of Present Illness History of Present Illness Consult date/time: 03/05/21 12:38 Requesting physician: Garret Elam DO Consult reason: chest pain and atrial fibrillation Reason For Visit: Atrial Fibrillation, Chest Pain Narrative: Date of service 03/05/2021 Reason consultation: chest pain atrial fibrillation Requesting provider Dr. abraham history: Patient is 50-year-old male who has a history cardiomyopathy, systolic congestive heart failure, atrial fibrillation. He originally presented to [facility] after being transferred from [place] in December of 2020. He was found to be in atrial fibrillation rapid ventricular response an ejection fraction at that time was 30-35%. He did undergo initial cardioversion in December but that was unsuccessful. He was started on amiodarone and was discharged. He was discharged home on a combination of carvedilol, Entresto, spironolactone, furosemide and Xarelto as well as amiodarone. He was seen in follow-up on a couple of different occasions as an outpatient. He did undergo successful cardioversion at the end of January but was having some issues with bradycardia and his amiodarone was reduced in carvedilol dose adjusted. I received a phone call 2 days ago through the exchange as he had flipped back into atrial fibrillation. It was at night and he suddenly felt his heart beating erratically. Initially he was controlled as an outpatient but yesterday his heart rate increased up to 140 beats per minute he started developed chest pain. At this point, he was advised to come to the hospital for further workup and evaluation specially given the chest pain and AFib with RVR. In the ER it was noted that his heart rate was initially quite elevated. His troponins were drawn and they were negative. He had taken his medications and gradually his heart rate did slow down. Chest pain gradually subsided. H
[2021-03-05] MEDS: RIVAROXABAN 20 MG TABLET PO (16:29)
[2021-03-05] MEDS: HYDROmorphone HCL (*CRX) 2 MG TABLET PO (20:31)
[2021-03-05] MEDS: MELATONIN 5 MG TABLET 10 MG PO (22:04)
[2021-03-06] VITALS (19 sets, daily range): BP systolic 93–129; BP diastolic 50–86; PULSE 44–107; RESP 13–18; TEMP 36.2–37.1; O2SAT 97–100
--- NOTE | 2021-03-06 | ECHO_ITS ---
Patient Info Name: Jamarcus Cardenas Age: 50 years : 1970 Gender: Male Ht: 75 in Wt: 256 lbs BSA: 2.51 m2 HR: 50 bpm BP: 110 / 75 mmHg Heart Rhythm: Sinus Rhythm Technical Quality: Good Exam Date: 03/06/2021 11:51 AM Exam Location: [facility] Patient Status: Inpatient Admit Date: 03/05/2021 Staff Ordering Physician: Brandan Cardenas MD Curtain Cutter Hand: London Shetty, [place], RT Attending Provider: Carol Sheehan NP Referring Physician: Ronald GARCIA; Exam Type: CA echo doppler color flow Study Info Indications I48.0 - Paroxysmal atrial fibrillation Complete two-dimensional, color flow and Doppler transthoracic echocardiogram is performed with contrast to opacify the left ventricle and to improve the deliniation of the left ventricle endocardial borders. Strain analysis performed. Summary 1. Definity contrast injected to enhance visualization. 2. Left ventricular ejection fraction measured at 41%. 3. Left ventricular chamber dimension is mildly enlarged. 4. Left atrial chamber dimension is moderately enlarged. 5. There is trace mitral valve regurgitation. 6. Compared to prior examination from 01/17/2021 there has been some improvement in left ventricular systolic function. Left Ventricle Left ventricular chamber dimension is mildly enlarged. The left ventricular diastolic function is grade I diastolic dysfunction. Definity contrast injected to enhance visualization. Left ventricular ejection fraction measured at 41%. Right Ventricle Right ventricular chamber dimension is normal. Left Atria Left atrial chamber dimension is moderately enlarged. Right Atria Right atrial chamber dimension is normal. Aortic Valve The aortic valve is normal. Pulmonic Valve The pulmonic valve is normal. Mitral Valve The mitral valve has normal leaflets. There is trace mitral valve regurgitation. Tricuspid Valve The tricuspid valve leaflets are normal. Pericardium/Pleural The pericardium appears normal. Aorta The aortic root size at the sinus of Valsalva is normal. Left Ventricular Outflow Tract Name Value Normal LVOT 2D LVOT Diameter 2.3 cm LVOT Doppler LVOT Peak Gradient 2 mmHg LVOT Mean Gradient 1 mmHg LVOT VTI 15 cm LVOT VTI/AV VTI Ratio 0.8 LVOT Stroke Volume 62 ml LVOT CO 2.7 l/min LVOT CI 1.1 l/min/m2 Mitral Valve Name Value Normal MV Doppler MV Decel Morrill 260 cm/s2 MV PHT 72 ms MV Area (PHT) 3.1 cm2 4.0-5.0 MV Diastolic Function MV E Peak Carlos
[2021-03-06] MEDS: MORPHINE SULFATE (*CRX) 30 MG TABCR PO (04:36)
[2021-03-06 08:43] LABS: Anion Gap 7 mmol/L (8-16); Blood Urea Nitrogen 21 mg/dL (9-20); Calcium 9.3 mg/dL (8.4-10.2); Carbon Dioxide 30 mmol/L (22-30); Chloride 99 mmol/L (98-107); Estimated CRCL calculation 97 ml/min; Estimated Glomerular Filt Rate > 60; Glucose 106 mg/dL (75-110); Magnesium 2.1 mg/dL (1.6-2.3); Potassium 4.7 mmol/L (3.4-5.0); Sodium 136 mmol/L (137-145)
[2021-03-06] MEDS: carvediloL 3.125 MG TABLET PO (09:04)
[2021-03-06] MEDS: AMIODARONE HCL 200 MG TABLET PO (09:04)
[2021-03-06] MEDS: SPIRONOLACTONE 25 MG TABLET PO (09:04)
[2021-03-06] MEDS: SACUBITRIL/VALSARTAN 24-26 MG TABLET 1 TAB PO (09:04)
[2021-03-06] MEDS: FUROSEMIDE 40 MG TABLET PO (09:04)
--- NOTE | 2021-03-06 09:15 | PC.NURSE ---
Patient to [facility] for cardioversion.
--- NOTE | 2021-03-06 10:15 | ECG_ITS ---
Measurements Intervals [place] Rate: 48 P: 21 NE: 163 QRS: 14 QRSD: 92 T: 0 QT: 442 QTc: 398 Interpretive Statements SINUS BRADYCARDIA BORDERLINE ST-T WAVE ABNORMALITY- ANTEROLAT/INF LEADS ABNORMAL ECG Electronically Signed On 03-06-2021 11:20:33 CDT by Ty Blackwood D.O.
--- NOTE | 2021-03-06 10:54 | WPDMODSED ---
Moderate Sedation Note-Pt Data Patient Data Diagnosis: Cardiomyopathy with recurrent atrial fibrillation Present Complaint: dyspnea, anxiety Procedure to be performed/Plan: DC cardioversion Allergies Allergy/AdvReac Type Severity Reaction Status Date / Time No Known Allergies Allergy Verified 03/05/21 00:33 Home Medications Medication Instructions Recorded Confirmed Type hydromorphone 2 mg PO TID PRN 01/17/21 03/05/21 History morphine 30 mg PO BID 01/17/21 03/05/21 History sumatriptan succinate 100 mg PO DAILY PRN 01/17/21 03/05/21 History testosterone 1 pump TOPICAL DAILY 01/17/21 03/05/21 History Xarelto 20 mg PO DAILY@1700 #30 tablet 01/19/21 03/05/21 Rx Entresto 1 tab PO Q12HR #60 tablet 01/22/21 03/05/21 Rx carvedilol [Coreg] 3.125 mg PO Q12HR #60 tablet 01/22/21 03/05/21 Rx amiodarone [Pacerone] 200 mg PO DAILY@0800 tablet 02/20/21 03/05/21 Rx spironolactone 25 mg PO QAM #30 tablet 02/20/21 03/05/21 Rx furosemide 40 mg PO BID 03/05/21 03/05/21 History melatonin 10 mg PO HS PRN 03/05/21 03/05/21 History Current Medications: Active Medications Amiodarone HCl (Amiodarone Hcl 200 Mg Tablet) 200 mg PO DAILY@0800 [facility] Last Admin: 03/06/21 09:04 Dose: 200 mg Documented by: Carvedilol (Carvedilol 3.125 Mg Tablet) 3.125 mg PO Q12HR [facility] Last Admin: 03/06/21 09:04 Dose: 3.125 mg Documented by: Furosemide (Furosemide 40 Mg Tablet) 40 mg PO BID [facility] Last Admin: 03/06/21 09:04 Dose: 40 mg Documented by: Hydromorphone HCl (Hydromorphone Hcl (*Crx) 2 Mg Tablet) 2 mg PO TID PRN PRN Reason: Pain Rated 7-10 Last Admin: 03/05/21 20:31 Dose: 2 mg Documented by: Sodium Chloride (Normal Saline Iv) 1,000 mls @ 30 mls/hr IV CONT .Q24H [facility] Melatonin (Melatonin 5 Mg Tablet) 10 mg PO HS PRN PRN Reason: Insomnia Last Admin: 03/05/21 22:04 Dose: 10 mg Documented by: Morphine Sulfate (Morphine Sulfate (*Crx) 30 Mg Tabcr) 30 mg PO BID [facility] Last Admin: 03/06/21 04:36 Dose: 30 mg Documented by: Non-Formulary Medication (Testosterone) 1 pump TOPICAL DAILY [facility] Stop: 04/04/21 09:01 Rivaroxaban (Rivaroxaban 20 Mg Tablet) 20 mg PO DAILY@1700 [facility] Last Admin: 03/05/21 16:29 Dose: 20 mg Documented by: Sacubitril/Valsartan (Sacubitril/Valsartan 24-26 Mg Tablet) 1 tab PO Q12HR [facility] Last Admin: 03/06/21 09:04 Dose: 1 tab Documented by: Spironolactone (Spironolactone 25 Mg Tablet) 25 mg PO QAM [facility] Last Admin: 03/06/21 09:04 Dose: 25 mg Documented by: Sumatriptan Succinate (Sumatriptan Succinate 25 Mg Tablet) 100 mg PO DAILY PRN PRN Reason: Headache Sedation/Anesthesia: No previous sedation/anesthesia problems (including family history). [facility] Past Medical History Medical History (Updated 03/05/21 @ 12:49 by Brandan Cardenas MD) Arrhythmia Back pain Chronic anticoagulation Spinal cord stimulator status Surgical History Surgical History H/O laminectomy H/O: knee surgery Bilaterally History of appendectomy History of bilateral carpal tunnel release History of hip replacement On the left Family History Family History Father Family history of heart disease in male family member before age 55 Family history of cardiac disorder Malignant neoplasm of prostate Family history of malignant neoplasm Sibling Family history of malignant neoplasm of breast in first degree relative Malignant hyperthermia Mother Family history of malignant neoplasm Sibling Malignant hyperthermia Social History Social History Social History: The patient lives with his . He has 2 biological children and 3 step children. The patient is disabled. His is the durable power attorney recruiter for healthcare. Patient desires to be a full code. The patient says that he has the medical marijuana card but is not using it because marijuana does not work
--- NOTE | 2021-03-06 11:07 | WPDCARDPROC ---
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 He was admitted to the hospital with a symptomatic recurrence of atrial fibrillation despite taking amiodarone at 200 mg daily. An attempt at restoring sinus rhythm was again recommended Procedure Procedure performed:: DC cardioversion Sedation/Medication given:: propofol IV push total dosage of 70 mg given Estimated blood loss:: no blood loss Procedure note:: patient was placed in the supine position with defibrillator patches in the AP position. He was in the postabsorptive state. The patient with an received sedation with propofol in aliquots a total of 70 mg was given which provided very nice sedation for cardioversion. He was cardioverted with 200 joules x1 shock in a synchronized fashion restoring sinus bradycardia. Findings:: As above Conclusion:: successful uncomplicated DC cardioversion of atrial fib restoring sinus rhythm in this gentleman with atrial fib and cardiomyopathy. Rene Stringer MD [facility]
[2021-03-06] MEDS: PERFLUTREN LIPID MICROSPHERES 1.5 ML VIAL DILUTED TO 10 ML TOTAL VOLUME IV PUSH (12:13)
--- NOTE | 2021-03-06 12:20 | SUR.PHASEII ---
Echo completed while in [facility]. Pt awake and alert post cardioversion. Transferring back to room 202 via wheelchair - at bedside.
--- NOTE | 2021-03-06 12:28 | PC.NURSE ---
Patient returned to room following cardioversion. Report received from DOUGLAS Roach.
[2021-03-06] MEDS: HYDROmorphone HCL (*CRX) 2 MG TABLET PO (14:36)
--- NOTE | 2021-03-06 15:53 | PM.DS ---
DS: Admitting Diagnosis Admitting Diagnosis Admitting Diagnosis: AFib RVR DS: Discharge Diagnosis Discharge Diagnosis (1) Atrial fibrillation with RVR: Code(s): I48.91 - Unspecified atrial fibrillation Status: Acute Assessment and Plan: continue TELEMETRY CONTINUE AMIODARONE and Coreg 01/20 and 02/20 BRENDAN Cardioversion History FOLLOW CARDIOLOGY RECOMMENDATIONS CONTINUE XARELTO ordered EKG for today checking orthostatic vitals x 1 (HR and BP) Future electrophysiology EP study Will need EKG after discharge Amiodarone will change to 400mg PO (2) Chest pain: Code(s): R07.9 - Chest pain, unspecified Status: Acute Assessment and Plan: RESOLVED. PATIENT DENIES CHEST PAIN/pressure AT THE TIME OF MY VISIT NITROGLYCERIN NEEDED LIKELY SECONDARY TO ABNORMAL HEART RATE SUSTAINED AT 140 CHEST PAIN-FREE AT THE TIME OF MY VISIT SUPPORTIVE CARE CONTINUE TO MONITOR INITIAL TROPONINS NEGATIVE x3 Follow cardiology recommendations. (3) Heart failure with reduced ejection fraction: Code(s): I50.20 - Unspecified systolic (congestive) heart failure Status: Acute Assessment and Plan: CONTINUE SPIRONOLACTONE EUVOLEMIA - no new concerns for dehydration at this time. continue Live Vest at discharge. Extremities pink and warm, perfused. Future Cardiac Catherization? (4) Cardiomyopathy: Code(s): I42.9 - Cardiomyopathy, unspecified Status: Acute Assessment and Plan: CONTINUE ENTRESTO Follow cardiology recommendations. (5) Back pain: Code(s): M54.9 - Dorsalgia, unspecified Status: Chronic Assessment and Plan: Chronic. Controlled at this time. STATUS POST LAMINECTOMY AND PAIN STIMULATOR IMPLANTATION CONTINUE MORPHINE 30 MG P.O. B.I.D. CONTINUE HYDROMORPHONE FOR BREAKTHROUGH PAIN DS: Summary Hospital Course Hospital Course: patient is a 50-year-old male with past medical history of atrial fib, cardiomyopathy, migraine headaches, and cardioversion who presented the ED due to chest pain and heart rhythm being AFib in the 140s 150s. Patient did say that he did try to get himself out of the AFib with high heart rate and is usually controlled into the 130s however this time was different he could not could not get his heart rate down below 150. Patient was then brought to the hospital and Dr. Stringer was consulted who cardioverted him today. Current rhythm is sinus Uriel in the 40s patient stated that he usually is in the 40s and that is his normal rate when he is in a regular rhythm. Patient will need to changes medications from amiodarone 200-400 mg per day. Cardiology has given specific instructions which will be detailed in the discharge instructions for this patient. Status at Discharge Functional status at discharge: independent ambulation Overall status at discharge: patient is back to baseline Time Spent with Patient Time attestation: Total time spent providing and/or coordinating discharge services: 40 minutes Specific discharge activities: discharge planning, result review, lab review, discharge instructions, documentation, education, physical exam, and discharge planning. Exam Const: General: cooperative, comfortable, no acute distress, well developed, alert, awake and other ( WELL-APPEARING) Nutritional Appearance: average body habitus Orientation/consciousness: patient oriented x3 HENMT: Head: normal to inspection, normocephalic and atraumatic Ears: hearing grossly normal bilaterally General nose exam: Normal external nose present Face and sinus: normal facial exam Eyes: General: appearance normal, both eyes and all related structures Alignment and Position: alignment normal Sclera: sclerae normal Pupils: Equal, round and reactive pupils present EOM: EOMs intact bilaterally Neck: Neck: full ROM, no lymphadenopathy and no JVD Thyroid: thyroid normal Lymphatic: no lymphadenopathy noted Resp: Effort &
== END 2021-03-06 17:05 | disposition home or self-care (01) | DRG 310 ==
LOC: ANHED 22:53 → ANHIMU 23:02
PROVIDERS: Internal Medicine Cardiovascular Disease; Specialist; Admitting Provider Internal Medicine; Emergency Provider Emergency Medicine; PCP Internal Medicine; Visit Provider Nurse Practitioner
PROC: 5A2204Z Restoration of Cardiac Rhythm, Single (ICD-10-PCS; principal; 2021-03-06 10:00)
DX: I48.91 Unspecified atrial fibrillation (principal); I42.9 Cardiomyopathy, unspecified; G47.33 Obstructive sleep apnea (adult) (pediatric); Z79.01 Long term (current) use of anticoagulants; R07.9 Chest pain, unspecified; R06.02 Shortness of breath
CPT/HCPCS: 36415; 71046; 80048; 83735; 83880; 84484; 85025; 85610; 85730; 92960; 93005; 93306; 94762; 99285; A9270; G0378; J2704; Q9957

== ENCOUNTER 2021-03-23 09:39 | Outpatient (CLI) | payer MEDICARE, MEDICAID, SELFPAY ==
--- NOTE | 2021-04-13 15:27 | WPDSLEEPSTUD ---
Sleep Study Date of Study: 03/23/21 Ordering Provider: Talia James, ELECTRONICS SYSTEM MECHANIC Interpreting Physician: Love Milian MD Sleep Study Type: Polysomnogram Height: 1.91 m Weight: 113.398 kg Body Mass Index: 31.2 Neck Circumference (inches): 17 [place]: 6 Reason for Sleep Study cardiomyopathy; cardioverted, bradycardia Sleep History Jamarcus Cardenas is a 50 year old man with cardiomyopathy, atrial fibrillation and hypertension. He is referred for sleep study to evaluate snoring and nonresfreshing sleep. [facility] Past Medical History Medical History Arrhythmia Back pain Chronic anticoagulation Spinal cord stimulator status Surgical History Surgical History H/O laminectomy H/O: knee surgery Bilaterally History of appendectomy History of bilateral carpal tunnel release History of hip replacement On the left Family History Family History Father Family history of heart disease in male family member before age 55 Family history of cardiac disorder Malignant neoplasm of prostate Family history of malignant neoplasm Sibling Family history of malignant neoplasm of breast in first degree relative Malignant hyperthermia Mother Family history of malignant neoplasm Sibling Malignant hyperthermia Social History Social History Social History: The patient lives with his . He has 2 biological children and 3 step children. The patient is disabled. His is the durable power cupola liner for healthcare. Patient desires to be a full code. The patient says that he has the medical marijuana card but is not using it because marijuana does not work for him. He does go to pain management. He denies any tobacco or alcohol or illicit drugs. Smoking status: Never smoker Second hand tobacco smoke exposure: No Alcohol intake: former Drinks per week: 8 Substance use: never Substance use type: does not use Gender identity (if verbalized by the patient): Male Spiritual care concerns: No Medications Home Medications Medication Instructions Recorded Confirmed Type hydromorphone 2 mg PO TID PRN 01/17/21 03/05/21 History morphine 30 mg PO BID 01/17/21 03/05/21 History sumatriptan succinate 100 mg PO DAILY PRN 01/17/21 03/05/21 History testosterone 1 pump TOPICAL DAILY 01/17/21 03/05/21 History Xarelto 20 mg PO DAILY@1700 #30 tablet 01/19/21 03/05/21 Rx Entresto 1 tab PO Q12HR #60 tablet 01/22/21 03/05/21 Rx carvedilol [Coreg] 3.125 mg PO Q12HR #60 tablet 01/22/21 03/05/21 Rx spironolactone 25 mg PO QAM #30 tablet 02/20/21 03/05/21 Rx furosemide 40 mg PO BID 03/05/21 03/05/21 History melatonin 10 mg PO HS PRN 03/05/21 03/05/21 History amiodarone [Pacerone] 400 mg PO DAILY@0800 30 Days #60 03/06/21 Rx tablet Sleep Procedure This test was performed using the [employer] multiple channel system including EOG, EEG, submental EMG, EKG, nasal and oral airflow using thermistors and nasal pressure sensors, chest and abdominal belts for body position data, and pulse oximetry. Video monitoring was also performed. The study was scored using [facility] guidelines. This was scheduled as a split night however patient did not meet criteria early enough in the night, so this was a basic study. Sleep Architecture The recording duration is 399.9 minutes. Sleep duration 299.5 minutes. Sleep efficiency is 74.9%. Sleep latency is 8.1 minutes. REM latency 109.5 minutes. The patient had 27 awakenings and spent 23.5% of the study awake after sleep onset. sleep architecture showed 5.6% stage 1 sleep, 55.1% stage 2 sleep, 0.4% stage 3 sleep and 15.3% stage REM. The patient spent 63.8% of sleep supine. There were 2 REM episodes. Respiratory Analysis The apnea-hypopnea index is 12.6, All obstructive events. In supin
[2021-04-14 10:40] VITALS: BMI 31.2
== END 2021-03-24 05:58 | disposition home or self-care (01) ==
LOC: ANHCSM 09:40
PROVIDERS: PCP Internal Medicine; Visit Provider Nurse Practitioner Adult Health
DX: G47.33 Obstructive sleep apnea (adult) (pediatric) (principal)
CPT/HCPCS: 95810

== ENCOUNTER 2021-04-21 11:00 | Outpatient (RCR) | payer MEDICARE, MEDICAID, SELFPAY | END 2021-05-08 10:04 | disposition home or self-care (01) | PROVIDERS: PCP Internal Medicine; Visit Provider Specialist | DX: I50.9 Heart failure, unspecified (principal) | CPT/HCPCS: 93798 ==

== ENCOUNTER 2021-07-17 11:35 | Outpatient (CLI) | payer MEDICARE, SELFPAY ==
[2021-07-17 12:02] LABS: Basophils Absolute Auto 0.04 K/mm3 (0.00-0.10); Basophils Percent Auto 0.4 % (0.0-1.0); Eosinophils Absolute Auto 0.06 K/mm3 (0.02-0.50); Eosinophils Percent Auto 0.6 % (1.0-6.0); Hematocrit 47.7 % (40.0-54.0); Hemoglobin 16.9 g/dL (14.0-18.0); Immature Granulocyte Absolute 0.06 K/mm3 (0.00-0.00); Immature Granulocyte Percent A 0.6 % (0.0-0.0); Lymphocytes Absolute Auto 1.14 K/mm3 (1.10-4.50); Lymphocytes Percent Auto 11.6 % (18.0-42.0); Mean Corpuscular HGB Conc 35.4 g/dL (32.0-36.0); Mean Corpuscular Hemoglobin 32.7 pg (27.0-31.0); Mean Corpuscular Volume 92.3 fL (78.0-102.0); Mean Platelet Volume 11.4 fl (8.7-11.0); Monocytes Absolute Auto 0.76 K/mm3 (0.10-0.90); Monocytes Percent Auto 7.7 % (2.0-11.0); Neutrophils Absolute Auto 7.8 K/mm3 (1.7-7.2); Neutrophils Percent Auto 79.1 % (50.0-70.0); Platelet Count Result 231 K/mm3 (150-420); Red Blood Count 5.17 M/mm3 (4.70-6.10); Red Cell Distribution Width 11.9 % (11.6-14.4); White Blood Count 9.8 K/mm3 (4.8-10.8)
[2021-07-17 12:55] LABS: Alanine Aminotransferase 52 U/L (16-63); Alkaline Phosphatase 62 U/L (46-116); Anion Gap 9 mmol/L (8-16); Aspartate Amino Transferase 33 U/L (15-37); Bilirubin,Total 0.4 mg/dL (0.00-1.00); Blood Urea Nitrogen 20 mg/dL (7-18); CRP < 0.5 mg/dL (0.0-0.9); Calcium 8.9 mg/dL (8.5-10.1); Carbon Dioxide 30 mmol/L (21-32); Chloride 100 mmol/L (98-108); Estimated Glomerular Filt Rate > 60; Glucose 102 mg/dL (70-99); Osmolality Calculated 290 mOsm/kg (285-295); Potassium 4.7 mmol/L (3.5-5.1); Sodium 139 mmol/L (136-145); Total Protein 7.5 g/dL (6.4-8.2)
== END 2021-07-17 11:36 | disposition home or self-care (01) ==
LOC: CHSLAB 11:37
PROVIDERS: PCP Internal Medicine; Visit Provider Internal Medicine
DX: R21 Rash and other nonspecific skin eruption (principal); R30.0 Dysuria; R50.9 Fever, unspecified
CPT/HCPCS: 36415; 80053; 85025; 86038; 86140

== ENCOUNTER 2021-08-13 23:55 | Emergency (ER) | payer MEDICARE, MEDICAID, SELFPAY ==
--- NOTE | ~2021-08-13 | CT_ITS ---
EXAMINATION: CT abdomen pelvis wo con DATE: 08/14/2021 01:00 INDICATION: Left flank pain, hematuria. Left testicle pain. TECHNIQUE: Computed tomography (CT) of the abdomen and pelvis was performed without intravenous contr ast. Automated exposure control and iterative reconstruction technique were employed. Exam dose: 171 3.97 mGy-cm total exam DLP. COMPARISON: None. FINDINGS: The lung bases are clear. Normal heart size. No pericardial effusion. The liver, spleen, pancreas, gallbladder and bile ducts and pancreatic duct are unremarkable. Normal morphology of the adrenal glands. No renal space-occupying mass lesion is evident on this limited noncontrast examination. No urinary t ract calculus or hydroureteronephrosis. The urinary bladder is unremarkable. No urinary tract calculu s or hydroureteronephrosis. Prostate enlargement and calcification. There is mild fat stranding adjacent to the urinary bladder and mild thickening of the urinary bladde r wall; recommend clinical correlation to exclude cystitis. No bowel obstruction or intraperitoneal free air is detected. Normal caliber of the abdominal aorta. No intraperitoneal or retroperitoneal or pelvic mass lesion or adenopathy or ascites is noted. Small fat-containing abdominal hernia. Small fat-containing inguinal hernias, right greater than left . Left-sided battery pack/spinal stimulator device with leads extending into the posterior lower thorac ic spinal canal. Severe degenerative disc disease throughout the lumbar spine with associated mild retrolisthesis at L 1-2, L3-4 and L4-5 and to a greater extent L2-3. There is severe degenerative change at the apophyseal joints, with associated grade 1 anterolisthesis at L5-S1. Status post left total hip arthroplasty. Left hip osteoarthritis. IMPRESSION: Mild thickening of bladder wall and mild pericystic fat stranding suggesting cystitis; r ecommend clinical correlation Reviewed, dictated and finalized at [facility]. Reviewed, dictated and finalized at location B. ETING AND PROMOTIONS MANAGER IMPRESSION: Mild thickening of bladder wall and mild pericystic fat stranding suggesting cystitis; recommend clinical correlation
--- NOTE | ~2021-08-13 | US_ITS ---
EXAMINATION: US scrotum doppler DATE: 08/14/2021 02:30 INDICATION: Left testicular pain and swelling. TECHNIQUE: Grayscale and Doppler ultrasound images of the testes were obtained. COMPARISON: None. FINDINGS: The right testis measures 4.8 x 2.4 x 1.8 cm. The left testis measures 3.6 x 2.6 x 2.2 cm. There is normal vascular flow to both testes. The right epididymis is normal with normal vascular celestino w. The left epididymis is enlarged with increased vascular flow. There is a small left hydrocele. No varicocele. Scrotal skin thickening is noted. IMPRESSION: 1. Left-sided epididymitis. 2. Small left hydrocele. Reviewed, dictated and finalized at location A. LY ASSESSMENT WORKER
[2021-08-14 00:09] VITALS: BP 123/71; PULSE 65; RESP 20; TEMP 36.1; O2SAT 100
--- NOTE | 2021-08-14 00:50 | PC.NURSE ---
Pt to CT via stretcher at this time .
--- NOTE | 2021-08-14 01:09 | ED.GENADULT ---
HPI - General Adult General Chief complaint: Urogenital-Male Stated complaint: swollen left testicle and hematuria Time Seen by Provider: 08/14/21 00:29 History of Present Illness HPI narrative: Patient 51-year-old gentleman who presents the emergency department chief complaint of left testicle pain patient reports has had some dysuria and also reports has had some hematuria today. Patient states the pain radiates to left flank area reports that the left testicle appears to be swollen and is tender to touch. The patient denies fever denies chills patient reports no prior kidney stone patient denies scrotal trauma Related Data Home Medications Medication Instructions Recorded Confirmed hydromorphone 2 mg PO TID PRN 01/17/21 03/05/21 morphine 30 mg PO BID 01/17/21 03/05/21 sumatriptan succinate 100 mg PO DAILY PRN 01/17/21 03/05/21 testosterone 1 pump TOPICAL DAILY 01/17/21 03/05/21 furosemide 40 mg PO BID 03/05/21 03/05/21 melatonin 10 mg PO HS PRN 03/05/21 03/05/21 Allergies Allergy/AdvReac Type Severity Reaction Status Date / Time No Known Allergies Allergy Verified 08/14/21 00:49 Review of Systems Review of Systems: A 10 system review of systems was completed on the patient and is negative except for what is stated in the HPI. Nursing and ancillary documentation was reviewed. [facility] Past Medical History Medical History Arrhythmia Back pain Chronic anticoagulation Spinal cord stimulator status Surgical History Surgical History H/O laminectomy H/O: knee surgery Bilaterally History of appendectomy History of bilateral carpal tunnel release History of hip replacement On the left Family History Family History Father Family history of heart disease in male family member before age 55 Family history of cardiac disorder Malignant neoplasm of prostate Family history of malignant neoplasm Sibling Family history of malignant neoplasm of breast in first degree relative Malignant hyperthermia Mother Family history of malignant neoplasm Sibling Malignant hyperthermia Social History Social History Social History: The patient lives with his . He has 2 biological children and 3 step children. The patient is disabled. His is the durable power deputy attorney general for healthcare. Patient desires to be a full code. The patient says that he has the medical marijuana card but is not using it because marijuana does not work for him. He does go to pain management. He denies any tobacco or alcohol or illicit drugs. Smoking status: Never smoker Second hand tobacco smoke exposure: No Alcohol intake: former Drinks per week: 8 Substance use: never Substance use type: does not use Gender identity (if verbalized by the patient): Male Sexual Orientation (if Verbalized by the Patient): Straight or Heterosexual Spiritual care concerns: No Exam Narrative: GENERAL: Well-appearing, well-nourished, and in no acute distress. HEAD: Normocephalic, atraumatic. EYES: PERRLA and EOMI. ENT: Nares clear, no rhinorrhea or epistaxis. Mucous membranes moist. NECK: Supple. CHEST: Clear to auscultation. No respiratory distress. HEART: Regular rate and rhythm. No murmur heard. Normal peripheral pulses. ABDOMEN: Soft, nontender, nondistended, normal active bowel sounds. : The left testicle is slightly swollen and tender to touch particular in the epididymal area EXTREMITIES: Normal range of motion. No edema. SKIN: Warm, dry, no rash. NEURO: No focal deficits. Alert and oriented x3. PSYCH: Normal mood and affect. Course Vital Signs Vital signs: Vital Signs Temperature 36.1 C L 08/14/21 00:09 Pulse Rate 65 08/14/21 00:09 Respiratory Rate 20 08/14/21
[2021-08-14 01:17] LABS: Basophils Percent Auto 0.3 % (0.2-1.2); Eosinophils Percent Auto 0.3 % (0-4.4); Hemoglobin 13.9 g/dL (14.0-18.0); Immature Granulocyte Absolute 0.04 K/mm3 (0.00-0.031); Immature Granulocyte Percent A 0.3 % (0-0.5); Lymphocytes Absolute Auto 1.45 K/mm3 (0.9-3.2); Lymphocytes Percent Auto 12.5 % (18.3-44.2); Mean Corpuscular HGB Conc 33.9 g/dl (32-36); Mean Corpuscular Hemoglobin 32.3 pg (26-34); Mean Corpuscular Volume 95.1 fl (80-100); Monocytes Absolute Auto 1.6 K/mm3 (0.1-0.6); Monocytes Percent Auto 13.8 % (2.6-8.5); Neutrophils Absolute Auto 8.4 K/mm3 (1.3-6.7); Neutrophils Percent Auto 72.8 % (45.5-73.1); Platelet Count Result 232 k/mm3 (150-375); Red Blood Count 4.31 M/mm3 (4.6-6.20); Red Cell Distribution Width 12.7 % (11.5-14.5); White Blood Count 11.6 K/mm3 (4.5-10.0)
[2021-08-14] MEDS: ONDANSETRON INJ 4 MG/2 ML VIAL IV PUSH (01:17)
[2021-08-14] MEDS: SODIUM CHLORIDE 0.9% IV 1,000 ML 200 ML IV CONT (01:18)
[2021-08-14] MEDS: MORPHINE SULFATE (*CRX) 4 MG/ML INJ IV PUSH ×2 (01:20→05:48)
[2021-08-14 01:26] LABS: Alanine Aminotransferase 41 U/L (4-50); Albumin Level 4.1 g/dL (3.5-5.1); Alkaline Phosphatase 46 U/L (38-126); Anion Gap 9 mmol/L (8-16); Aspartate Amino Transferase 35 U/L (17-59); Bilirubin,Total 0.7 mg/dL (0.2-1.3); Blood Urea Nitrogen 21 mg/dL (9-20); Calcium 8.7 mg/dL (8.4-10.2); Carbon Dioxide 25 mmol/L (22-30); Chloride 99 mmol/L (98-107); Estimated CRCL calculation 88 ml/min; Estimated Glomerular Filt Rate > 60; Glucose 131 mg/dL (65-110); Potassium 3.9 mmol/L (3.4-5.0); Sodium 133 mmol/L (137-145)
[2021-08-14 01:28] LABS: Lactic Acid Reflex 1.5 mmol/L (0.7-2.1)
[2021-08-14 02:12] VITALS: BP 119/60; PULSE 54; RESP 16; O2SAT 98
[2021-08-14 02:32] LABS: Add Urine Microscopic? YES; Appearance Urine Clear (Clear); Bacteria Urine Trace /hpf; Bilirubin Urine Negative (Negative); Blood Urine Negative (Negative); Color Urine Yellow (Yellow); Glucose Urine UA Negative (Negative); Ketones Urine Negative (Negative); Leukocyte Esterase Ur 1+ LEU/UL (Negative); Mucus Urine Rare /lpf; Nitrate Urine Negative (Negative); Protein Urine Negative (Negative); Urobilinogen Urine Negative mg/dL (<2.0); WBC Urine 51-75 /hpf
[2021-08-14 03:40] VITALS: BP 118/63; PULSE 55; RESP 18; O2SAT 97
[2021-08-14 05:31] VITALS: BP 124/71; PULSE 53; RESP 16; O2SAT 100
[2021-08-14 06:28] VITALS: BP 128/71; PULSE 57; RESP 16; O2SAT 99
== END 2021-08-14 06:30 | disposition home or self-care (01) ==
PROVIDERS: Emergency Provider Emergency Medicine; PCP Internal Medicine
DX: N39.0 Urinary tract infection, site not specified (principal); N50.82 Scrotal pain
CPT/HCPCS: 36415; 74176; 76870; 80053; 81001; 83605; 85025; 87077; 87086; 87186; 87491; 87591; 93976; 96361; 96365; 96375; 96376; 99284; J0696; J2270; J2405; J7030

== ENCOUNTER 2021-12-22 10:20 | Outpatient (CLI) | payer MEDICARE, MEDICAID, SELFPAY ==
--- NOTE | ~2021-12-22 | XR_ITS ---
XR hip RT min 2V DATE: 12/22/2021 10:55 INDICATION: Right hip pain TECHNIQUE: AP and lateral views COMPARISON: None FINDINGS: There is prominent joint space narrowing involving particularly the medial aspect of the bruno int as well as prominent degenerative spurring of the right femoral head, consistent with moderately severe right hip osteoarthritis. No fracture or dislocation, avascular necrosis or bone destruction is evident. Normal alignment at the pubic symphysis and right sacroiliac joint. IMPRESSION: Moderately severe right hip osteoarthritis Reviewed, dictated and finalized at location [facility].
--- NOTE | ~2021-12-22 | XR_ITS ---
XR lumbar spine 2-3V DATE: 12/22/2021 10:55 INDICATION: Low back pain, right hip pain for 2 days TECHNIQUE: AP, lateral, coned lateral lumbosacral views COMPARISON: None FINDINGS: Mild thoracolumbar levoscoliosis. There is severe degenerative disc disease at L1-2, moderately severe degenerative disc disease and ap proximately 5 mm retrolisthesis at L2-3. There is severe degenerative disc disease and approximately 4 mm retrolisthesis at L3-4. Moderate degenerative disc disease at L5-S1. Lumbar pedicles are intact. No fracture or bone destruction is evident. The sacroiliac joints are normal. Left total hip arthroplasty. Left sided battery pack with leads extending to thoracic spinal canal. IMPRESSION: Levoscoliosis Multilevel prominent degenerative disc disease of the lumbar spine Status post left hip arthroplasty Reviewed, dictated and finalized at location A.
== END 2021-12-22 10:21 | disposition home or self-care (01) ==
LOC: CHSIMG 10:22
PROVIDERS: PCP Internal Medicine; Visit Provider Nurse Practitioner Family
DX: M25.551 Pain in right hip (principal); M54.50 Low back pain, unspecified
CPT/HCPCS: 72100; 73502

== ENCOUNTER 2022-12-28 08:50 | Day surgery (SDC) | payer MEDICARE, MEDICAID, SELFPAY ==
[2022-12-28 11:24] VITALS: BMI 34.9
[2022-12-31] VITALS (9 sets, daily range): BP systolic 104–141; BP diastolic 72–105; PULSE 49–106; RESP 12–20; TEMP 36.6; O2SAT 97–100; BMI 36.5
--- NOTE | 2022-12-31 07:00 | ECG_ITS ---
Measurements Intervals [place] Rate: 49 P: 28 [place]: 167 QRS: 43 QRSD: 96 T: 70 QT: 437 QTc: 398 Interpretive Statements SINUS BRADYCARDIA NONSPECIFIC T-WAVE ABNORMALITY- ANT/HIGH LAT LEADS BORDERLINE ECG COMPARED TO ECG 12/31/2022 07:16:24 SINUS BRADYCARDIA NOW PRESENT Electronically Signed On 12-31-2022 9:13:00 CDT by Ty Blackwood D.O.
--- NOTE | 2022-12-31 07:00 | ECG_ITS ---
Measurements Intervals [place] Rate: 86 P: [place]: 0 QRS: 58 QRSD: 98 T: 29 QT: 395 QTc: 474 Interpretive Statements ATRIAL FIBRILLATION BORDERLINE T WAVE ABNORMALITY- INFERIOR LEADS ABNORMAL ECG COMPARED TO ECG 03/06/2021 11:07:37 ATRIAL FIBRILLATION NOW PRESENT Electronically Signed On 12-31-2022 8:07:30 CDT by Ty Blackwood D.O.
[2022-12-31 07:57] LABS: Anion Gap 7 mmol/L (8-16); Blood Urea Nitrogen 23 mg/dL (9-20); Calcium 8.5 mg/dL (8.4-10.2); Carbon Dioxide 23 mmol/L (22-30); Chloride 106 mmol/L (98-107); Estimated CRCL calculation 101 ml/min; Estimated Glomerular Filt Rate > 60; Glucose 108 mg/dL (65-110); Magnesium 2.3 mg/dL (1.6-2.3); Potassium 4.5 mmol/L (3.4-5.0); Sodium 136 mmol/L (137-145)
--- NOTE | 2022-12-31 08:48 | WPDMODSED ---
Moderate Sedation Note-Pt Data Patient Data Diagnosis: Recurrent atrial fibrillation history of tachycardia mediated cardiomyopathy history of medical noncompliance Present Complaint: no complaints this morning Procedure to be performed/Plan: DC cardioversion Allergies Allergy/AdvReac Type Severity Reaction Status Date / Time Latex, Natural Rubber Allergy Blister Verified 12/31/22 07:18 Home Medications Medication Instructions Recorded Confirmed Type hydromorphone 2 mg tablet 2 mg PO TID PRN Pain 01/17/21 12/31/22 History sumatriptan succinate 100 mg tablet 100 mg PO DAILY PRN Headache 01/17/21 12/31/22 History testosterone 1 pump topical DAILY 01/17/21 12/31/22 History rivaroxaban 20 mg tablet (Xarelto) 20 mg PO DAILY@1700 #30 tabs 01/19/21 12/31/22 Rx sacubitril 24 mg-valsartan 26 mg 1 tab PO Q12HR #60 tabs 01/22/21 12/31/22 Rx tablet (Entresto) spironolactone 25 mg tablet 25 mg PO QAM #30 tabs 02/20/21 12/31/22 Rx furosemide 40 mg tablet 40 mg PO BID 03/05/21 12/31/22 History amiodarone 200 mg tablet (Pacerone) 200 mg PO BID 12/28/22 12/31/22 History carvedilol 6.25 mg tablet 3.125 mg PO BID 12/28/22 12/31/22 History epinephrine 0.3 mg/0.3 mL IM ONCE PRN Allergic Reaction 12/28/22 History injection, auto-injector morphine 15 mg tablet,extended 15 mg PO TID PRN Pain 12/28/22 12/31/22 History release Current Medications: Active Medications Sodium Chloride (Normal Saline Iv) 1,000 mls @ 30 mls/hr IV CONT .Q24H MORRIS Sedation/Anesthesia: No previous sedation/anesthesia problems (including family history). PENDING SALE TO [facility] Past Medical History Medical History Arrhythmia Back pain Chronic anticoagulation Spinal cord stimulator status Surgical History Surgical History H/O laminectomy H/O: knee surgery Bilaterally History of appendectomy History of bilateral carpal tunnel release History of hip replacement On the left Family History Family History Father Family history of heart disease in male family member before age 55 Family history of cardiac disorder Malignant neoplasm of prostate Family history of malignant neoplasm Sibling Family history of malignant neoplasm of breast in first degree relative Malignant hyperthermia Mother Family history of malignant neoplasm Sibling Malignant hyperthermia Social History Social History Social History: The patient lives with his . He has 2 biological children and 3 step children. The patient is disabled. His is the durable power workers compensation attorney for healthcare. Patient desires to be a full code. The patient says that he has the medical marijuana card but is not using it because marijuana does not work for him. He does go to pain management. He denies any tobacco or alcohol or illicit drugs. Smoking status: Never smoker Second hand tobacco smoke exposure: No Alcohol intake: former Drinks per week: 2 Alcohol use details: occasionally Substance use: current Substance use type: opiates and prescription drug Living arrangements: with family Additional living arrangements comments: lives with Gender identity (if verbalized by the patient): Male Sexual Orientation (if Verbalized by the Patient): Straight or Heterosexual Spiritual care concerns: No Mod Sed Physical Exam Physical Exam Pre Procedural Exam: Normal: Neck, Throat, Airway, Lungs, Neuro Exam and Extremities and Variation: Appearance ( overweight patient no apparent distress), Heart Size ( PMI not palpable), Heart Rate and Heart Rhythm ( irregularly irregular) Hours since solid foods: 12 Hours since liquid intake: 12 Mallampati Classification: class III Internal Medicine - PN: Obj Da Vital Signs Vital Signs:
--- NOTE | 2022-12-31 08:50 | P.PCNCC_ITS ---
Cardiac Cath Procedure Note Date of procedure:: 12/31/22 Performing physician:: Rene Stringer MD Indication:: recurrent atrial fib Brief clinical history:: this is a 52-year-old man with a history of atrial fibrillation as well as significant LV systolic dysfunction and presumed tachycardia mediated cardiomyopathy. He has been not compliant with antiarrhythmic therapy/ amiodarone. As an outpatient he was found to have recurrence of his atrial fibrillation. He has been placed on amiodarone again at 400 mg per day. An attempt at restoring sinus rhythm electrically has been recommended and schedul ed for this morning. Electrophysiology consultation has also been scheduled as an outpatient Procedure Procedure performed:: DC cardioversion Sedation/Medication given:: IV propofol total dosage of 120 mg Estimated blood loss:: none Procedure note:: patient was brought to the cardiac catheterization lab holding area in postabsorptive state and placed in the supine position defibrillator patches were placed in the AP position and IV access was obtained in the right upper extremity. Following this he was sedated with propofol in aliquots of total dosage of 120 mg was given. He was DC cardioverted with 200 joules in a synchronized fashion which did not change his cardiac rhythm. He was then sedated with additional propofol and cardioverted synchronized fashion at 360 mg in synchronized fashion which did restore sinus rhythm / sinus bradycardia. Findings:: Successful uncomplicated DC cardioversion terminating atrial fibrillation restoring sinus rhythm requiring 360 joules to convert the patient successfully Conclusion:: successful uncomplicated DC cardioversion region terminating atrial fibrillation restoring sinus rhythm / sinus bradycardia using 360 joules. Rene Stringer MD [facility]
== END 2022-12-31 10:50 | disposition home or self-care (01) ==
PROVIDERS: PCP Internal Medicine; Visit Provider Specialist
PROC: 5A2204Z Restoration of Cardiac Rhythm, Single (ICD-10-PCS; principal; 2022-12-31 08:30)
DX: I48.91 Unspecified atrial fibrillation (principal); I51.89 Other ill-defined heart diseases; I42.9 Cardiomyopathy, unspecified; Z91.148 Patient's other noncompliance with medication regimen for other reason; Z79.01 Long term (current) use of anticoagulants
CPT/HCPCS: 36415; 80048; 83735; 92960; J2704; J7030

== ENCOUNTER 2024-03-04 12:22 | Inpatient (IN) | payer MEDICARE, SELFPAY ==
[2024-03-04] VITALS (28 sets, daily range): BP systolic 74–140; BP diastolic 53–114; PULSE 73–152; RESP 13–27; TEMP 35.9–36.9; O2SAT 95–99; BMI 32.5
--- NOTE | 2024-03-04 | ECHO_ITS ---
Patient Info Name: Jamarcus Cardenas Age: 53 years : 1970 Gender: Male Ht: 75 in Wt: 251 lbs BSA: 2.48 m2 HR: 77 bpm BP: 118 / 78 mmHg Heart Rhythm: Atrial Fibrillation Technical Quality: Fair Exam Date: 03/04/2024 4:12 PM Exam Location: Echo Lab Patient Status: Inpatient Admit Date: 03/04/2024 Staff Ordering Physician: Ann Turner APRN Certified Financial Planner: Korin Olivas RDCS Attending Provider: Fito Jean MD Referring Physician: Johnny CABALLERO; Exam Type: CA echo dop color flow w con Study Info Indications - Recurrent Afib Complete two-dimensional, color flow and Doppler transthoracic echocardiogram is performed with contrast to opacify the left ventricle and to improve the deliniation of the left ventricle endocardial borders. Contrast/Agitated Saline Contrast/Ag. Saline: Definity Amount: 3.00 ml Administered By: Korin Olivas RDCS Existing IV Access: Yes IV Access Condition: patent with no signs of infiltration Summary 1. Left ventricular chamber dimension is normal. 2. Left ventricular systolic function is mildly reduced, estimated at 45-50%. 3. There is mildly increased left ventricular wall thickness. 4. The left ventricular diastolic function is indeterminate. 5. Left atrial chamber dimension is mildly enlarged. 6. There is mild mitral valve regurgitation. Left Ventricle Left ventricular chamber dimension is normal. Left ventricular systolic function is mildly reduced, estimated at 45-50%. There is mildly increased left ventricular wall thickness. The left ventricular diastolic function is indeterminate. Right Ventricle Right ventricular chamber dimension is normal. Right ventricular systolic function is normal. Left Atria Left atrial chamber dimension is mildly enlarged. Right Atria Right atrial chamber dimension is normal. Atrial Septum Intact interatrial septum visualized by color flow imaging. Aortic Valve There is mild aortic valve sclerosis. There is no aortic valve stenosis. There is trace aortic valve regurgitation. Pulmonic Valve The pulmonic valve is normal. There is no pulmonic valve stenosis. There is trace pulmonic regurgitation. Mitral Valve The mitral valve has normal leaflets. There is no mitral valve stenosis. There is mild mitral valve regurgitation. Tricuspid Valve The tricuspid valve leaflets are normal. There is no significant tricuspid valve stenosis. There is trace tricuspid valve regurgitation. Pericardium/Pleural The pericardium appears normal. There is no pericardial effusion. Inferior Vena Cava Normal inferior vena cava with >50% collapse upon inspiration consistent with normal right atrial pressure, 8 mmHg. Aorta The aortic root size at the sinus of Valsalva is normal. Left Ventricular Outflow Tract Name Value Normal LVOT 2D LVOT Diameter 2.04 cm LVOT Doppler LVOT Peak Gradient 3 mmHg LVOT Mean Gradient 2 mmHg LVOT VTI 14.94 cm LVOT VTI/AV VTI Ratio 0.95 LVOT Stroke Volume 48.76 ml LVOT CO
--- NOTE | ~2024-03-04 | XR_ITS ---
XR chest 2V Ordering provider: Ann Turner APRN History: 53 years Male with . palpitations, shortness of breath . Comparison: March 04, 2021 FINDINGS: MEDIASTINUM: The cardiac silhouette is not enlarged. LUNGS: No infiltrates, effusions or pneumothorax. OTHER: No free air under the diaphragm. Degenerative changes of the spine. Spinal stimulator is noted. IMPRESSION: No acute cardiopulmonary pathology. Reviewed, dictated and finalized at location A.
--- NOTE | 2024-03-04 12:24 | ECG_ITS ---
Test Date: 2024-03-04 12:27:11 Measurements Intervals [place] Rate: 144 P: 0 AR: 0 QRS: 50 QRSD: 90 T: -4 QT: 286 QTc: 444 Interpretive Statements ATRIAL FIBRILLATION WITH RAPID VENTRICULAR RESPONSE BORDERLINE ST-T WAVE ABNORMALITY- ANTEROLAT/INF LEADS BASELINE ARTIFACT- II, III, AVR, AVL, AVF ABNORMAL ECG No previous ECG available for comparison Electronically Signed On 03-04-2024 13:02:31 CDT by Ty Blackwood D.O.
--- NOTE | 2024-03-04 12:47 | ED.ARRPALP ---
HPI - Arrhythmia/Palpitations General Chief Complaint: Arrhythmia/Palpitations Stated Complaint: afib Time Seen by Provider: 03/04/24 12:45 History of Present Illness HPI narrative: Patient is a 53-year-old male with history of CHF, AFib here with afib and tachycardia. patient notes that he previously has noted when he is in AFib in gets symptomatic. Last week he had a couple episodes of dizziness that self-resolved. A couple of days ago he was at the gym and his heart rates while he was working out room between the 60s and 80s. Yesterday he went to a primary care doctor appointment to discuss medical clearance for a hip replacement and they noted that he was in AFib at that visit with heart rates in the 120s. He was asymptomatic at that time. Over the course of the last 24 hours he has become somewhat symptomatic with some palpitations and shortness of breath. He is unsure if he is actually experiencing symptoms of AFib or it is just because he knows he is in AFib. He states that his heart rate has been running between the 120s and 140s at home. He did take an extra dose of his Coreg this morning which is 3.125 mg, this did not change his heart rate substantially. He presented to the ER today due to his AFib with RVR. No cough, congestion, fever, chills. No chest pain. No leg swelling. He does have a history of AFib, has previously had a ablation in July of 2023 at [facility], [place]. He follows with Dr. Stringer from Cardiology. Related Data Home Medications Medication Instructions Recorded Confirmed hydromorphone 2 mg tablet 2 mg PO TID PRN Pain 01/17/21 03/04/24 testosterone 1 pump topical DAILY 01/17/21 03/04/24 furosemide 40 mg tablet 40 mg PO BID 03/05/21 03/04/24 carvedilol 6.25 mg tablet 3.125 mg PO BID 12/28/22 03/04/24 epinephrine 0.3 mg/0.3 mL 0.3 mg IM ONCE PRN Allergic 12/28/22 03/04/24 injection, auto-injector Reaction morphine 15 mg tablet,extended 15 mg PO 06,12,17 12/28/22 03/04/24 release aspirin 81 mg chewable tablet 81 mg PO DAILY 03/04/24 03/04/24 atorvastatin 40 mg tablet 40 mg PO 1700 03/04/24 03/04/24 pantoprazole 40 mg tablet,delayed 40 mg PO DAILY 03/04/24 03/04/24 release sacubitril 24 mg-valsartan 26 mg 1 tab PO BID 03/04/24 03/04/24 tablet (Entresto) Allergies Allergy/AdvReac Type Severity Reaction Status Date / Time Latex, Natural Rubber Allergy Blister Verified 12/31/22 07:18 Review of Systems Review of Systems: All systems reviewed & are unremarkable except as noted in HPI and below PMFSH Past Medical History Medical History (Updated 03/04/24 @ 17:53 by Jennie Knight MD) Atrial fibrillation s/p ablation 07/2023 Back pain Heart failure with reduced ejection fraction MARY ALICE (obstructive sleep apnea) Spinal cord stimulator status Surgical History Surgical History (Updated 03/04/24 @ 15:39 by Ann Turner APRN) H/O laminectomy H/O: knee surgery Bilaterally History of appendectomy History of back surgery 6 in total as of 02/2024 History of bilateral carpal tunnel release History of hip replacement On the left Family History Family History (Updated 03/04/24 @ 16:08 by Martha Schultz, RN) Father Family history of heart disease in male family member before age 55 Family history of cardiac disorder Malignant neoplasm of prostate Family history of malignant neoplasm Hypertension Sibling Malignant hyperthermia Family history of malignant neoplasm of breast in first degree relative Mother Family history of malignant neoplasm Sibling Malignant hyperthermia Social History Social History Social History: The patient lives with his . He has 2 biological children and 3 step children. The patient is disabled. His is the durable power insurance attorney for healthcare. Patient desires to be a full code. The patient says that he has the medical marijuana card but is not using
[2024-03-04 12:55] LABS: Basophils Percent Auto 0.5 % (0.2-1.2); Eosinophils Absolute Auto 0.1 K/mm3 (0-0.3); Eosinophils Percent Auto 0.9 % (0-4.4); Hematocrit 47.3 % (42.0-52.0); Hemoglobin 16.2 g/dL (14.0-18.0); Immature Granulocyte Absolute 0.02 K/mm3 (0.00-0.031); Immature Granulocyte Percent A 0.2 % (0-0.5); Lymphocytes Absolute Auto 1.52 K/mm3 (0.9-3.2); Lymphocytes Percent Auto 18.7 % (18.3-44.2); Mean Corpuscular HGB Conc 34.2 g/dl (32-36); Mean Corpuscular Hemoglobin 32.6 pg (26-34); Mean Corpuscular Volume 95.2 fl (80-100); Mean Platelet Volume 10.7 fl (7.4-10.4); Monocytes Absolute Auto 0.8 K/mm3 (0.1-0.6); Monocytes Percent Auto 9.2 % (2.6-8.5); Neutrophils Absolute Auto 5.7 K/mm3 (1.3-6.7); Neutrophils Percent Auto 70.5 % (45.5-73.1); Platelet Count Result 236 k/mm3 (150-375); Red Blood Count 4.97 M/mm3 (4.6-6.20); Red Cell Distribution Width 12.4 % (11.5-14.5); White Blood Count 8.1 K/mm3 (4.5-10.0)
[2024-03-04 13:04] LABS: Alanine Aminotransferase 33 U/L (6-50); Albumin Level 4.4 g/dL (3.5-5.1); Alkaline Phosphatase 65 U/L (38-126); Anion Gap 10 mmol/L (4-12); Aspartate Amino Transferase 37 U/L (17-59); Bilirubin,Total 0.8 mg/dL (0.2-1.3); Blood Urea Nitrogen 19 mg/dL (9-20); Calcium 8.9 mg/dL (8.4-10.2); Carbon Dioxide 26 mmol/L (22-30); Chloride 103 mmol/L (98-107); Estimated CRCL calculation 74 ml/min; Estimated Glomerular Filt Rate 53; Glucose 100 mg/dL (65-110); Potassium 4.2 mmol/L (3.4-5.0); Sodium 139 mmol/L (137-145)
[2024-03-04 13:11] LABS: INR 1.3; Prothrombin Time 16.7 Seconds (11.1-14.7)
[2024-03-04 13:15] LABS: Partial Thromboplastin Time 37.6 Seconds (22.3-36.8)
[2024-03-04] MEDS: AMIODARONE 150 MG/D5W 100 ML 150 MG/100 ML BAG 600 MG IV CONT (13:16)
[2024-03-04 13:20] LABS: Troponin I < 0.012 ng/mL (0.000-0.034)
[2024-03-04] MEDS: AMIODARONE 360 MG/D5W 200 ML 360 MG/200 ML BAG 33.33 MG IV CONT (13:36)
--- NOTE | 2024-03-04 14:28 | PM.IMHP ---
H&P: HPI History of Present Illness Date/Time: 03/04/24 14:28 Chief Complaint: Tachycardia Narrative: 53 y/o M presents here with tachycardia with PMH of AFib s/p ablation, chronic anticoagulation (Xarelto), and spinal cord stimulator in place for chronic low back pain. The patient presents here from home for further evaluation of palpitations. Per patient, he was seen by his PCP yesterday to obtain medical clearance for a right hip replacement. Noted at visit to be in AFib with a rate of 120s. Asymptomatic at that time, previously has been symptomatic during episodes of AFib. Has checked his heart rate at home via a [employer] ECG graciela, which has ranged between 120's and 140's. Patient took extra dose of Coreg this morning (takes 3.125 mg p.o. b.i.d.) with only a slight transient effect on his heart rate. Upon presentation to the ED, found to be in AFib RVR. Has previous history of AFib with ablation done in July of 2023 at [facility]. Currently follows with Myke NEWMAN for his cardiac care. Denying chest pain, palpitations, shortness of breath, dizziness, presyncope or syncope. Initial VS at presentation: 97.3? F, HR 148, RR 18, 130/114, and 98% on RA. ED workup showed: No leukocytosis, no anemia, INR 1.3, creatinine 1.4 and GFR 53, initial troponin negative, and TSH 3.73. EKG showed AFib RVR, rate 144, borderline ST-T-wave abnormality in anterolateral/inferior leads, and baseline artifact. Review of Systems Review of Systems: All systems reviewed & are unremarkable except as noted in HPI and below [facility] Past Medical History Medical History (Updated 03/04/24 @ 17:02 by Ann Turner APRN) Atrial fibrillation s/p ablation 07/2023 Back pain Heart failure with reduced ejection fraction MARY ALICE (obstructive sleep apnea) Spinal cord stimulator status Surgical History Surgical History (Updated 03/04/24 @ 15:39 by Ann Turner APRN) H/O laminectomy H/O: knee surgery Bilaterally History of appendectomy History of back surgery 6 in total as of 02/2024 History of bilateral carpal tunnel release History of hip replacement On the left Family History Family History (Updated 03/04/24 @ 16:08 by Martha Schultz RN) Father Family history of heart disease in male family member before age 55 Family history of cardiac disorder Malignant neoplasm of prostate Family history of malignant neoplasm Hypertension Sibling Malignant hyperthermia Family history of malignant neoplasm of breast in first degree relative Mother Family history of malignant neoplasm Sibling Malignant hyperthermia Social History Social History Social History: The patient lives with his . He has 2 biological children and 3 step children. The patient is disabled. His is the durable power ceo for healthcare. Patient desires to be a full code. The patient says that he has the medical marijuana card but is not using it because marijuana does not work for him. He does go to pain management. He denies any tobacco or alcohol or illicit drugs. Smoking status: Never smoker Second hand tobacco smoke exposure: No Alcohol intake: current Drinks per week: 3 Alcohol use details: occasionally Substance use: never Substance use type: opiates and prescription drug Do You Feel Safe in your Home?: Yes Lack of Transportation: No Lack of Food: Never True Current Housing: I Have Housing Concerned About Future Housing: No Difficulty Paying Gas/Electric Bills: No Difficulty Paying for Meds: No Currently Unemployed: No Education: High School Diploma/GED Difficulty w/ Childcare or Family Care: No Living arrangements: with family Additional living arrangements comments: lives with Gender identity (if verbalized by the patient): Male Sexual Orientation (if Verbalized by the Patient): Straight or Heterosexu
--- NOTE | 2024-03-04 15:52 | ADMGEN ---
This patient, Jamarcus Cardenas, was admitted to IMU Room 213-01. Patient/family oriented to hospital policies and general routines including ID bracelet, bed and alarms, visiting hours, pain management, procedures, bathroom and other care routines, personal items, smoking policy, room service/diet, and visiting hours. Information on how to activate the Rapid Response Team has been discussed. Patient/Family are encouraged to report perceived risks to care and to ask questions if they do not understand what they are told or what they should do.
--- NOTE | 2024-03-04 16:27 | ECG_ITS ---
Test Date: 2024-03-04 17:01:02 Measurements Intervals [place] Rate: 91 P: 231 NE: 93 QRS: 23 QRSD: 95 T: -2 QT: 368 QTc: 453 Interpretive Statements ATRIAL FIBRILLATION NONSPECIFIC T-WAVE ABNORMALITY- ANTEROLATERAL LEADS BASELINE ARTIFACT- II, III, AVF ABNORMAL ECG Compared to ECG 03/04/2024 12:27:11 HEART RATE HAS DECREASED Electronically Signed On 03-04-2024 20:31:09 CDT by Ty Blackwood D.O.
[2024-03-04 16:41] LABS: Troponin I < 0.012 ng/mL (0.000-0.034)
[2024-03-04] MEDS: PERFLUTREN LIPID MICROSPHERES 1.5 ML VIAL DILUTED TO 10 ML TOTAL VOLUME IV PUSH (16:48)
--- NOTE | 2024-03-04 17:09 | IVDEFINITY ---
Prior to administration of IV Definity the patient was educated on the risks and benefits of the imaging enhancing agent including potential adverse side effects. The patient verbalized understanding. Allergies were verified. No exclusion criteria were identified and at least one of the following inclusion criteria were met: 1) physician request, 2) patient technically difficult to image (per the [place] [employer]chocardi[employer] guidelines of two or more segments not discernable within the apical view), or 3) questionable left ventricular function. ?
[2024-03-04] MEDS: SACUBITRIL/VALSARTAN 24-26 MG TABLET 1 TAB PO (17:55)
[2024-03-04] MEDS: MORPHINE SULFATE (*CRX) 15 MG TABCR PO (17:55)
[2024-03-04] MEDS: ATORVASTATIN 40 MG TABLET PO (17:55)
[2024-03-04] MEDS: RIVAROXABAN 20 MG TABLET PO (17:55)
[2024-03-04] MEDS: FUROSEMIDE 40 MG TABLET PO (17:55)
--- NOTE | 2024-03-04 18:11 | PM.IMPN ---
Subjective Date/time seen: 03/04/24 18:11 Interval history: I saw examined patient today, patient feels better, has general weakness, Exam Narrative: GENERAL: Pleasant, in no acute distress. Well-nourished. - EYES: EOMI. Anicteric. - HENT: Moist mucous membranes. - LUNGS: Clear to auscultation bilaterally, no wheezing, rhonchi, or rales. - CARDIOVASCULAR: Irregular irregular rhythm No murmur. No JVD. - ABDOMEN: Soft, non-tender and non-distended. No palpable masses. - EXTREMITIES: No edema. Peripheral pulses 2+. Non-tender. - NEUROLOGIC: No focal neurological deficits. CN II-XII grossly intact. - PSYCHIATRIC: Awake, Alert and oriented x 3. Appropriate mood and affect. - SKIN: No rashes or lesions. Warm. - LYMPH: No cervical lymphadenopathy. Objective Data Vital Signs Vital Signs: Vital Signs - 24 hr 03/04/24 12:40 03/04/24 12:53 03/04/24 13:16 Temperature 97.3 F L Pulse Rate 148 H 130 H 124 H Respiratory Rate 18 Blood Pressure 130/114 H 93/69 L Pulse Oximetry 98 Oxygen Delivery 03/04/24 13:32 03/04/24 13:36 03/04/24 12:33 Temperature Pulse Rate 104 H 109 H 152 H Respiratory Rate 13 Blood Pressure 106/73 106/73 130/114 H Pulse Oximetry 99 Oxygen Delivery 03/04/24 12:49 03/04/24 13:00 03/04/24 13:16 Temperature Pulse Rate 136 H 137 H 141 H Respiratory Rate 22 H 27 H 20 Blood Pressure 94/76 L 102/81 74/65 L Pulse Oximetry 97 97 96 Oxygen Delivery 03/04/24 13:19 03/04/24 13:21 03/04/24 13:29 Temperature Pulse Rate 127 H 123 H 92 Respiratory Rate 16 17 20 Blood Pressure 93/69 L 83/65 L 91/75 L Pulse Oximetry 95 96 95 Oxygen Delivery 03/04/24 13:30 03/04/24 13:45 03/04/24 14:00 Temperature Pulse Rate 100 113 H 91 Respiratory Rate 24 H 15 16 Blood Pressure 106/73 108/93 H 92/73 L Pulse Oximetry 97 95 96 Oxygen Delivery 03/04/24 14:15 03/04/24 14:51 03/04/24 15:01 Temperature Pulse Rate 95 96 102 H Respiratory Rate 20 15 Blood Pressure 101/73 140/107 H 93/67 L Pulse Oximetry 96 97 97 Oxygen Delivery 03/04/24 15:05 03/04/24 15:46 03/04/24 16:00 Temperature 97.7 F Pulse Rate 87 80 86 Respiratory Rate 16 Blood Pressure 100/72 118/78 Pulse Oximetry 97 99 Oxygen Delivery 03/04/24 16:00 03/04/24 15:40 03/04/24 17:56 Temperature 96.7 F L Pulse Rate 76 73 Respiratory Rate 16 Blood Pressure 118/78 120/81 Pulse Oximetry 99 Oxygen Delivery Room Air 03/04/24 15:45 Temperature Pulse Rate 86 Respiratory Rate Blood Pressure 118/76 Pulse Oximetry Oxygen Delivery Intake/Output Intake/Output: Intake & Output 03/01/24 03/02/24 03/03/24 03/04/24 23:59 23:59 23:59 23:59 Intake Total 724.5 Output Total 350 Balance 374.5 Meds/Results Medications: Active Medications Generic Name Dose Route Start Last Admin Trade Name Freq PRN Reason Stop Dose Admin Aspirin 81 mg 03/05/24 09:00 Aspirin 81 Mg Chewable Tablet PO DAILY MORRIS Atorvastatin Calcium 40 mg 03/04/24 17:00 03/04/24 17:55 Atorvastatin 40 Mg Tablet PO 40 mg 1700 MORRIS Administration Furosemide 40 mg 03/04/24 17:00 03/04/24 17:55 Furosemide 40 Mg Tablet PO 40 mg BID MORRIS Administration Hydromorphone HCl 2 mg 03/04/24 17:00 Hydromorphone Hcl (*Crx) 2 Mg Tablet PO TID PRN Pain Amiodarone HCl/Dextrose 360 mg in 200 mls @ 33.333 mls/hr 03/04/24 13:08 03/04/24 17:56 Nexterone 360 Mg/D5w 200 Ml IV CONT 03/04/24 19:07 1 mg/min .Q6H ONE 33.33 mls/hr Infusion 1 MG/MIN Morphine Sulfate 15 mg 03/04/24 17:00 03/04/24 17:55 Morphine Sulfate (*Crx) 15 Mg Tabcr PO 15 mg 06,12,17 MORRIS Administration Pantoprazole Sodium 40 mg 07/11/24 09:00 Pantoprazole 40 Mg Tablet PO DAILY MORRIS Rivaroxaban 20 mg 03/04/24 17:00 03/04/24 17:55 Rivaroxaban 20 Mg Tablet PO 20 mg DAILY@1700 [facility] Administration Sacubitril/Valsartan 1 tab 03/04/24 17:00
--- NOTE | 2024-03-04 18:36 | ECG_ITS ---
Test Date: 2024-03-04 18:42:31 Measurements Intervals [place] Rate: 76 P: 88 ID: 167 QRS: 27 QRSD: 97 T: 60 QT: 396 QTc: 446 Interpretive Statements ATRIAL FIBRILLATION ST-T WAVE ABNORMALITY IN ANTEROLATERAL LEADS- CONSIDER ISCHEMIA BASELINE ARTIFACT- I, III, AVR, AVL, AVF ABNORMAL ECG Compared to ECG 03/04/2024 17:01:02 ST-T WAVE ABNORMALITY NOW PRESENT Electronically Signed On 03-05-2024 08:51:28 CDT by Ty Blackwood D.O.
--- NOTE | 2024-03-04 19:10 | PC.NURSE ---
Notified Ann Turner NP that the ED MD didn't order the Amiodarone drip per protocol. ED only ordered the Amiodarone bolus and the 1st bag to infuse at 1mg/min x 6hr. New order to continue protocol and administer bag #2 to infuse at 0.5mg/min x12 hr.
[2024-03-04] MEDS: AMIODARONE 360 MG/D5W 200 ML 360 MG/200 ML BAG 16.67 MG IV CONT (19:11)
[2024-03-04 19:48] LABS: Troponin I < 0.012 ng/mL (0.000-0.034)
[2024-03-05] VITALS (20 sets, daily range): BP systolic 93–124; BP diastolic 55–89; PULSE 49–90; RESP 13–20; TEMP 36.2–37.2; O2SAT 93–100
[2024-03-05 04:43] LABS: Basophils Absolute Auto 0.1 K/mm3 (0.0-0.1); Basophils Percent Auto 0.9 % (0.2-1.2); Eosinophils Absolute Auto 0.1 K/mm3 (0-0.3); Eosinophils Percent Auto 1.5 % (0-4.4); Hematocrit 43.8 % (42.0-52.0); Hemoglobin 15.1 g/dL (14.0-18.0); Immature Granulocyte Absolute 0.01 K/mm3 (0.00-0.031); Immature Granulocyte Percent A 0.1 % (0-0.5); Lymphocytes Absolute Auto 2.18 K/mm3 (0.9-3.2); Lymphocytes Percent Auto 32.6 % (18.3-44.2); Mean Corpuscular HGB Conc 34.5 g/dl (32-36); Mean Corpuscular Hemoglobin 32.8 pg (26-34); Mean Corpuscular Volume 95.2 fl (80-100); Mean Platelet Volume 10.5 fl (7.4-10.4); Monocytes Absolute Auto 0.9 K/mm3 (0.1-0.6); Monocytes Percent Auto 13.5 % (2.6-8.5); Neutrophils Absolute Auto 3.4 K/mm3 (1.3-6.7); Neutrophils Percent Auto 51.4 % (45.5-73.1); Platelet Count Result 207 k/mm3 (150-375); Red Cell Distribution Width 12.3 % (11.5-14.5); White Blood Count 6.7 K/mm3 (4.5-10.0)
[2024-03-05 04:54] LABS: Anion Gap 8 mmol/L (4-12); Blood Urea Nitrogen 17 mg/dL (9-20); Calcium 8.4 mg/dL (8.4-10.2); Carbon Dioxide 29 mmol/L (22-30); Chloride 100 mmol/L (98-107); Estimated CRCL calculation 81 ml/min; Estimated Glomerular Filt Rate 58; Glucose 83 mg/dL (65-110); Sodium 137 mmol/L (137-145)
[2024-03-05] MEDS: MORPHINE SULFATE (*CRX) 15 MG TABCR PO ×2 (07:02→12:02)
[2024-03-05] MEDS: SACUBITRIL/VALSARTAN 24-26 MG TABLET 1 TAB PO (08:33)
[2024-03-05] MEDS: FUROSEMIDE 40 MG TABLET PO (08:33)
[2024-03-05] MEDS: ASPIRIN 81 MG CHEWABLE TABLET PO (08:33)
[2024-03-05] MEDS: PANTOPRAZOLE 40 MG TABLET PO (08:33)
[2024-03-05] MEDS: SPIRONOLACTONE 25 MG TABLET PO (08:33)
--- NOTE | 2024-03-05 10:21 | PM.CNCAR ---
Assessment and Plan Assessment and plan (1) Atrial fibrillation with rapid ventricular response: Code(s): I48.91 - Unspecified atrial fibrillation Status: Acute Assessment and Plan: Status post ablation in July. Now with recurrence. Unfortunately he has missed a few doses of Xarelto recently. Will like to cardiovert him out of atrial fibrillation but in order to do so safely, he needs a MICHAEL to ensure there is no left atrial appendage thrombus especially given his history of thrombus formation at the time of his initial diagnosis. He does have upcoming hip surgery also and would need 4 weeks of uninterrupted anticoagulation following cardioversion. He did eat breakfast but it is reasonable to proceed with michael guided cardioversion later on this afternoon. Will discontinue amiodarone drip and start oral amiodarone 200 mg p.o. daily. This again should be a short-term regimen and he would need follow-up with Dr. Kerns and Dr. Stringer for long-term management. (2) Chronic anticoagulation: Code(s): Z79.01 - retirement (current) use of anticoagulants Status: Acute Assessment and Plan: Continue Xarelto and he is encouraged and reminded not to miss any doses of Xarelto (3) Cardiomyopathy: Code(s): I42.9 - Cardiomyopathy, unspecified Status: Acute Assessment and Plan: Mild (4) Heart failure with reduced ejection fraction: Code(s): I50.20 - Unspecified systolic (congestive) heart failure Status: Acute Assessment and Plan: Compensated. Continue other meds including carvedilol, Entresto, spironolactone Plan Anticipate discharge later today following cardioversion History of Present Illness History of Present Illness Consult date/time: 03/05/24 10:21 Requesting physician: Jennie Knight MD Consult reason: atrial fibrillation Reason For Visit: Afib with RVR Narrative: Date of service 03/05/2024 Reason for consultation: Atrial fibrillation requesting provider: Dr. Knight History:53 y/o M presents here with tachycardia with PMH of AFib s/p ablation, chronic anticoagulation (Xarelto), and spinal cord stimulator in place for chronic low back pain. Patient is actually completely asymptomatic and denies any chest pain, shortness of breath, syncope, presyncope, paroxysmal nocturnal dyspnea, orthopnea, edema palpitations. He was seen by his primary care provider 2 days ago for medical clearance for upcoming right hip replacement. He was noted to be in atrial fibrillation with rapid ventricular response with heart rates in the 120s. He then went and bought a new [employer] watch and noted that his heart rate was in the 120s to 140s. He was told to call his home care chaplain. He did have atrial ablation back in July and follows with Dr. Stringer also. His heart rate continued to be in the 140s and he became concerned specially given his history of tachycardic induced cardiomyopathy and thrombus formation. He came to the ER for further workup and evaluation. He was started on amiodarone drip. Heart rate is reasonably controlled. He still feels fine. Upon further questioning, he has missed some doses of Xarelto. He most recently missed a dose of Xarelto last week and periodically does miss a dose ?here and there ?. He also has upcoming hip surgery on April 08 Review of Systems Review of Systems: All systems reviewed & are unremarkable except as noted in HPI and below Constitutional: Constitutional: Denies body ache(s) Eyes: Eyes: Denies blurry vision ENT: Reports Normal hearing present Cardiovascular: Cardiovascular: Denies chest pain Respiratory: Respiratory: Denies dyspnea Gastrointestinal: Gastrointestinal: Denies abdominal pain Genitourinary: Genitourinary: Denies hematuria Musculoskeletal: Musculoskeletal: Denies back pain Integumentary/Breasts: Skin/Breast: Denies dry skin Neurologic: Denies Abnormal speech present Psychiatric: Psychi
[2024-03-05] MEDS: HYDROmorphone HCL (*CRX) 2 MG TABLET PO (12:01)
--- NOTE | 2024-03-05 13:20 | PC.NURSE ---
Pt to cath lab manager for BRENDAN/cardioversion via bed
--- NOTE | 2024-03-05 14:20 | ECG_ITS ---
Test Date: 2024-03-05 14:22:48 Measurements Intervals [place] Rate: 56 P: 220 CO: 91 QRS: 23 QRSD: 96 T: 12 QT: 453 QTc: 441 Interpretive Statements SINUS BRADYCARDIA CONSIDER INFERIOR INFARCT, AGE INDETERMINATE BORDERLINE ST-T WAVE ABNORMALITY- ANTEROLATERAL LEADS BASELINE ARTIFACT- II, III, AVF ABNORMAL ECG Compared to ECG 03/04/2024 18:42:31 Atrial fibrillation no longer present Electronically Signed On 03-05-2024 14:49:56 CDT by Ty Blackwood D.O.
--- NOTE | 2024-03-05 14:28 | WPDTECDV ---
BRENDAN with Cardioversion Date of procedure: 03/05/24 Procedure Type: Date of Procedure: 03/05/2024 Brief History Of Present Illness: Patient is a 53 year old male who is referred for BRENDAN-guided DCCV. Procedure In Detail: After verbal and written informed consent was obtained, the patient risks, benefits, and alternatives explained in detail. The patient agreed to proceed with the plan of care as outlined above.?The patient was evaluated at bedside in the [facility] procedure room.?The posterior oropharynx, neck, and jaw angle all within normal limits on examination. Lungs were clear to auscultation. See pre-sedation note for further details. The patient was then placed in the appropriate 30 to 45 degree angle supine position at a slight left lateral decubitus position.?Patient was monitored throughout the study with telemetry, oxygen saturation, end-tidal CO2 monitoring, blood pressure, heart rate, and respirations.? The posterior hypopharynx was then locally anesthetized using repeated administration of Hurricaine spray as well as gargled viscous lidocaine.? After local anesthetic of the posterior hypopharynx was achieved and the oral bite block placed, moderate sedation was administered.? After confirmation of adequate moderate sedation, the transesophageal echocardiogram probe was advanced through the oral bite block into the posterior hypopharynx and into the esophagus easily and without complication.? Multiple, multiplanar echocardiographic images were obtained in multiple standard re- projections.? Pulsed wave Doppler was utilized in conjunction with this study. Definity contrast was administered for better visualization of the left atrial appendage. At the conclusion of the study, the transesophageal echocardiogram probe was removed easily and without complication.? The patient tolerated the procedure well without difficulty.? Moderate Sedation/Anesthesia administration: Patient reports no prior problems with sedation/anesthesia. Please see pre-sedation noted for physical examination documentation. As noted above, after adequate local anesthesia of the posterior hypopharynx was achieved, a total of?4mg intravenous Versed, total of 100mcg intravenous Fentanyl, and Propofol 40mg IV in multiple divided doses was administered for moderate sedation.?Sedation start time was 14:09 and end time was 14:18 for a total intra-service/procedure face-face time of?9 minutes.?Versed and Fentanyl administered by DOUGLAS [place]. Propofol administered by . There were no other issues or complications and patient tolerated the procedure well. FINDINGS: LEFT ATRIAL APPENDAGE: Anatomically normal structure with prominent pectinate muscles without thrombus or vegetation identified. ? CARDIOVERSION: Defibrillator pads were placed in an AP position. Synchronized electrical cardioversion was performed with 1 shock at 250 joules, which successfully restored sinus rhythm. CONCLUSION: Successful BRENDAN-guided DCCV with restorationist of sinus rhythm with 1 shock at 250 joules. Complications: None
--- NOTE | 2024-03-05 14:33 | WPDMODSED ---
Moderate Sedation Note-Pt Data Patient Data Diagnosis: Atrial fibrillation Present Complaint: Atrial fibrillation Procedure to be performed/Plan: BRENDAN-guided DCCV Allergies Allergy/AdvReac Type Severity Reaction Status Date / Time Latex, Natural Rubber Allergy Blister Verified 12/31/22 07:18 Home Medications Medication Instructions Recorded Confirmed Type hydromorphone 2 mg tablet 2 mg PO TID PRN Pain 01/17/21 03/04/24 History testosterone 1 pump topical DAILY 01/17/21 03/04/24 History rivaroxaban 20 mg tablet (Xarelto) 20 mg PO DAILY@1700 #30 tabs 01/19/21 03/04/24 Rx spironolactone 25 mg tablet 25 mg PO QAM #30 tabs 02/20/21 03/04/24 Rx furosemide 40 mg tablet 40 mg PO BID 03/05/21 03/04/24 History carvedilol 6.25 mg tablet 3.125 mg PO BID 12/28/22 03/04/24 History epinephrine 0.3 mg/0.3 mL 0.3 mg IM ONCE PRN Allergic 12/28/22 03/04/24 History injection, auto-injector Reaction morphine 15 mg tablet,extended 15 mg PO 06,12,17 12/28/22 03/04/24 History release aspirin 81 mg chewable tablet 81 mg PO DAILY 03/04/24 03/04/24 History atorvastatin 40 mg tablet 40 mg PO 1700 03/04/24 03/04/24 History pantoprazole 40 mg tablet,delayed 40 mg PO DAILY 03/04/24 03/04/24 History release sacubitril 24 mg-valsartan 26 mg 1 tab PO BID 03/04/24 03/04/24 History tablet (Entresto) rivaroxaban 20 mg tablet (Xarelto) 20 mg PO DAILY@1700 #90 tabs 03/05/24 Rx Current Medications: Active Medications Aspirin (Aspirin 81 Mg Chewable Tablet) 81 mg PO DAILY [facility] Last Admin: 03/05/24 08:33 Dose: 81 mg Atorvastatin Calcium (Atorvastatin 40 Mg Tablet) 40 mg PO 1700 [facility] Last Admin: 03/04/24 17:55 Dose: 40 mg Furosemide (Furosemide 40 Mg Tablet) 40 mg PO BID [facility] Last Admin: 03/05/24 08:33 Dose: 40 mg Hydromorphone HCl (Hydromorphone Hcl (*Crx) 2 Mg Tablet) 2 mg PO TID PRN PRN Reason: Pain Last Admin: 03/05/24 12:01 Dose: 2 mg Morphine Sulfate (Morphine Sulfate (*Crx) 15 Mg Tabcr) 15 mg PO 06,12,17 [facility] Last Admin: 03/05/24 12:02 Dose: 15 mg Pantoprazole Sodium (Pantoprazole 40 Mg Tablet) 40 mg PO DAILY [facility] Last Admin: 03/05/24 08:33 Dose: 40 mg Rivaroxaban (Rivaroxaban 20 Mg Tablet) 20 mg PO DAILY@1700 [facility] Last Admin: 03/04/24 17:55 Dose: 20 mg Sacubitril/Valsartan (Sacubitril/Valsartan 24-26 Mg Tablet) 1 tab PO BID [facility] Last Admin: 03/05/24 08:33 Dose: 1 tab Spironolactone (Spironolactone 25 Mg Tablet) 25 mg PO QAM [facility] Last Admin: 03/05/24 08:33 Dose: 25 mg Sedation/Anesthesia: No previous sedation/anesthesia problems (including family history). [facility] Past Medical History Medical History Atrial fibrillation s/p ablation 07/2023 Back pain Heart failure with reduced ejection fraction MARY ALICE (obstructive sleep apnea) Spinal cord stimulator status Surgical History Surgical History H/O laminectomy H/O: knee surgery Bilaterally History of appendectomy History of back surgery 6 in total as of 02/2024 History of bilateral carpal tunnel release History of hip replacement On the left Family History Family History Father Family history of heart disease in male family member before age 55 Family history of cardiac disorder Malignant neoplasm of prostate Family history of malignant neoplasm Hypertension Sibling Malignant hyperthermia Family history of malignant neoplasm of breast in first degree relative Mother Family history of malignant neoplasm Sibling Malignant hyperthermia Social History Social History Social History: The patient lives with his . He has 2 biological children and 3 step children. The patient is disabled. His is the durable power criminal defense attorney for healthcare. Patient desires to be a full code. The patient says that he has the medi
--- NOTE | 2024-03-05 15:32 | WPDPN ---
Progress Note: A&P Assessment and Plan (1) Atrial fibrillation with rapid ventricular response: Code(s): I48.91 - Unspecified atrial fibrillation Status: Acute (2) Heart failure with reduced ejection fraction: Code(s): I50.20 - Unspecified systolic (congestive) heart failure Status: Acute (3) Chronic anticoagulation: Code(s): Z79.01 - continuous churn buttermaker (current) use of anticoagulants Status: Acute Plan Interval history 03/05/2024: patient with history of A. fib s/p ablation in July, now presented with a. fib, to his primary and was sent to the ER, from ER patient was started on amiodarone drip, his rate is trending down, currently patient denies any palpitation, CP, or shortness of breath, patient will be seen by his car salesman and further recommendation to follow. Subjective Date/time seen: 03/05/24 15:32 Interval history: Chief Complaint: Tachycardia H&E-[id number]-[id number]: 53 y/o M presents here with tachycardia with PMH of AFib s/p ablation, chronic anticoagulation (Xarelto), and spinal cord stimulator in place for chronic low back pain. The patient presents here from home for further evaluation of palpitations. Per patient, he was seen by his PCP yesterday to obtain medical clearance for a right hip replacement. Noted at visit to be in AFib with a rate of 120s. Asymptomatic at that time, previously has been symptomatic during episodes of AFib. Has checked his heart rate at home via a [employer] ECG graciela, which has ranged between 120's and 140's. Patient took extra dose of Coreg this morning (takes 3.125 mg p.o. b.i.d.) with only a slight transient effect on his heart rate. Upon presentation to the ED, found to be in AFib RVR. Has previous history of AFib with ablation done in July of 2023 at [facility]. Currently follows with Myke NEWMAN for his cardiac care. Denying chest pain, palpitations, shortness of breath, dizziness, presyncope or syncope. Initial VS at presentation: 97.3? F, HR 148, RR 18, 130/114, and 98% on RA. ED workup showed: No leukocytosis, no anemia, INR 1.3, creatinine 1.4 and GFR 53, initial troponin negative, and TSH 3.73. EKG showed AFib RVR, rate 144, borderline ST-T-wave abnormality in anterolateral/inferior leads, and baseline artifact. Interval history 03/05/2024: patient with history of A. fib s/p ablation in July, now presented with a. fib, to his primary and was sent to the ER, from ER patient was started on amiodarone drip, his rate is trending down, currently patient denies any palpitation, CP, or shortness of breath, patient will be seen by his car salesman and further recommendation to follow. Review of Systems Review of Systems: All systems reviewed & are unremarkable except as noted in HPI and below Exam Narrative: Patient is comfortable, NAD HEENT: eyes are clear and none icteric LUNGS:CTA HEART: Irregularly irregular ABD: BS+, Soft and nontender Lower extremities: no edema SKIN: nonjaundiced Neuro: grossly intact. Objective Data Vital Signs Vital Signs: Vital Signs - 24 hr 03/04/24 15:46 03/04/24 16:00 03/04/24 16:00 Temperature 36.5 C Pulse Rate 80 86 Respiratory Rate 16 Blood Pressure 118/78 Pulse Oximetry 99 Oxygen Delivery Room Air Oxygen Flow Rate 03/04/24 15:40 03/04/24 17:56 03/04/24 15:45 Temperature 35.9 C L Pulse Rate 76 73 86 Respiratory Rate 16 Blood Pressure 118/78 120/81 118/76 Pulse Oximetry 99 Oxygen Delivery Oxygen Flow Rate 03/04/24 18:00 03/04/24 19:57 03/04/24 20:00 Temperature 36.9 C Pulse Rate 73 82 82 Respiratory Rate 16 16 Blood Pressure 100/53 L Pulse Oximetry 97 97 Oxygen Delivery Room Air Oxygen Flow Rate 03/04/24 20:00 03/04/24 22:00 03/05/24 00:00 Temperature Pulse Rate 82 80 67 Respiratory Rate Blood Pressure 104/62 112/67 Pulse Oximetry Oxygen Delivery Oxygen Flow Rate
[2024-03-05] MEDS: RIVAROXABAN 20 MG TABLET PO (16:00)
--- NOTE | 2024-03-05 16:07 | PM.DS ---
DS: Admitting Diagnosis Discharge Date 03/05/2024 Admitting Diagnosis Tachycardia DS: Discharge Diagnosis Discharge Diagnosis (1) Atrial fibrillation with rapid ventricular response: Code(s): I48.91 - Unspecified atrial fibrillation Status: Acute (2) Heart failure with reduced ejection fraction: Code(s): I50.20 - Unspecified systolic (congestive) heart failure Status: Acute DS: Summary Hospital Course Hospital Course: patient with history of A. fib s/p ablation in July, now presented with a. fib, to his primary and was sent to the ER, from ER patient was started on amiodarone drip, his rate is trending down, currently patient denies any palpitation, CP, or shortness of breath, patient will be seen by his president and cmo and further recommendation to follow. patient was seen by his president and cmo and was taken to cardiac cath lab tech and had Successful BRENDAN-guided DCCV with yarsani of sinus rhythm with 1 shock at 250 joules. patient is clinically stable will discharge patient today. Time Spent with Patient Time attestation: Total time spent providing and/or coordinating discharge services: Exam Narrative: Patient is comfortable, NAD HEENT: eyes are clear and none icteric LUNGS:CTA HEART: Irregularly irregular ABD: BS+, Soft and nontender Lower extremities: no edema SKIN: nonjaundiced Neuro: grossly intact. DS: Data Data Completed and Pending Labs on day of discharge: Labs from last 24 hours 03/05/24 03/04/24 03/04/24 04:21 19:09 16:11 WBC 6.7 RBC 4.60 Hgb 15.1 Hct 43.8 MCV 95.2 MCH 32.8 MCHC 34.5 RDW 12.3 Plt Count 207 MPV 10.5 H Immature Gran % (Auto) 0.1 Neut % (Auto) 51.4 Lymph % (Auto) 32.6 [place] % (Auto) 13.5 H Eos % (Auto) 1.5 Baso % (Auto) 0.9 Lymph # (Auto) 2.18 [place] # (Auto) 0.9 H Eos # (Auto) 0.1 Baso # (Auto) 0.1 Abs Immat Gran (auto) 0.01 Absolute Neuts (auto) 3.4 Absolute Nucleated RBC 0.000 Nucleated RBC % 0.0 Sodium 137 Potassium 4.0 Chloride 100 Carbon Dioxide 29 Anion Gap 8 BUN 17 Creatinine 1.30 Estim Creat Clear Calc 81 Estimated GFR 58 L Glucose 83 Calcium 8.4 Troponin I < 0.012 < 0.012 Discharge Plan Discharge Attending physician on discharge: Fito Jean Consulting providers: Migue Wong; Brandan Cardenas; Kunal Martinez; Ann Turner; Ty Blackwood Discharging Clinician: Yamileth Lara Patient Disposition: Home, Self-Care Activity: as tolerated Diet: heart healthy Discharge Instructions: patient to follow discharge care instruction from his president and cmo and follow up as scheduled, patent to follow up with his primary care provider as soon as possible, patient is instructed if any symptoms redevelop to go to nearest ER. Patient Instructions: Antibiotic Form Stand Alone Forms: General Discharge Information Follow-up/Referrals: Mateo Walters MD [Primary Care Provider] - Migue Wong MD [Physician] - Discharge Medications: New Xarelto 20 mg Tablet 20 mg PO DAILY@1700 Qty: 90 3RF amiodarone [Pacerone] 200 mg Tablet 200 mg PO DAILY@0800 Qty: 90 3RF Continued hydromorphone 2 mg tablet 2 mg PO TID PRN (Reason: Pain) testosterone 20.25 mg/1.25 gram (1.62 %) gel in metered-dose pump 1 pump topical DAILY Rx Instructions: apply to axilla alternating between one side and both sides. spironolactone 25 mg Tablet 25 mg PO QAM Qty: 30 0RF Xarelto 20 mg Tablet 20 mg PO DAILY@1700 Qty: 30 0RF furosemide 40 mg tablet 40 mg PO BID morphine 15 mg tablet extended release 15 mg PO 06,12,17 epinephrine 0.3 mg/0.3 mL auto-injector 0.3 mg IM ONCE PRN (Reason: Allergic Reaction) atorvastatin 40 mg tablet 40 mg PO 1700 pantoprazole 40 mg tablet,delayed release (DR/EC) 40 mg PO DAILY aspirin 81 mg tablet,ramos
[2024-03-05] MEDS: AMIODARONE HCL 200 MG TABLET PO (16:30)
== END 2024-03-05 16:45 | disposition home or self-care (01) | DRG 309 ==
LOC: ANHED 15:15 → ANHIMU 15:18
PROVIDERS: Internal Medicine; Student in an Organized Health Care Education/Training Program; Admitting Provider Hospitalist; Emergency Provider Student in an Organized Health Care Education/Training Program; PCP Internal Medicine; Visit Provider Family Medicine
PROC: B24BZZ4 Ultrasonography of Heart with Aorta, Transesophageal (ICD-10-PCS; CPT 93312; principal; 2024-03-05 14:30)
PROC: 5A2204Z Restoration of Cardiac Rhythm, Single (ICD-10-PCS; 2024-03-05 14:30)
DX: I48.91 Unspecified atrial fibrillation (principal); I50.22 Chronic systolic (congestive) heart failure; G47.33 Obstructive sleep apnea (adult) (pediatric); Z96.642 Presence of left artificial hip joint; Z79.01 Long term (current) use of anticoagulants; Z90.49 Acquired absence of other specified parts of digestive tract
CPT/HCPCS: 36415; 71046; 80048; 80053; 83735; 84443; 84484; 85025; 85610; 85730; 92960; 93005; 96365; 99285; A9270; C8925; C8929; J0282; J2250; J2704; J3010; J7040; Q9957

== ENCOUNTER 2024-07-31 13:45 | Outpatient (CLI) | payer MEDICARE, SELFPAY ==
[2024-07-31 13:58] LABS: Basophils Absolute Auto 0.03 K/mm3 (0.00-0.10); Basophils Percent Auto 0.5 % (0.0-1.0); Eosinophils Absolute Auto 0.04 K/mm3 (0.02-0.50); Eosinophils Percent Auto 0.7 % (1.0-6.0); Hematocrit 44.6 % (40.0-54.0); Hemoglobin 15.3 g/dL (14.0-18.0); Immature Granulocyte Absolute 0.02 K/mm3 (0.00-0.00); Immature Granulocyte Percent A 0.3 % (0.0-0.0); Lymphocytes Absolute Auto 1.32 K/mm3 (1.10-4.50); Lymphocytes Percent Auto 22.6 % (18.0-42.0); Mean Corpuscular HGB Conc 34.3 g/dL (32-36); Mean Corpuscular Hemoglobin 31.6 pg (27.0-31.0); Mean Corpuscular Volume 92.1 fL (78.0-102.0); Monocytes Percent Auto 13.7 % (2.0-11.0); Neutrophils Absolute Auto 3.64 K/mm3 (1.70-7.20); Neutrophils Percent Auto 62.2 % (50.0-70.0); Platelet Count Result 230 K/mm3 (150-420); Red Blood Count 4.84 M/mm3 (4.70-6.10); Red Cell Distribution Width 13.2 % (11.6-14.4); White Blood Count 5.9 K/mm3 (4.8-10.8)
[2024-07-31 14:15] LABS: INR 1.2; Partial Thromboplastin Time 39.2 Sec (23.9-30.70); Prothrombin Time 13.3 Seconds (9.50-12.1)
[2024-07-31 14:31] LABS: Alanine Aminotransferase 38 U/L (16-63); Albumin Level 4.1 g/dL (3.4-5.0); Alkaline Phosphatase 81 U/L (46-116); Anion Gap 8 mmol/L (4-12); Aspartate Amino Transferase 32 U/L (15-37); Bilirubin,Total 0.7 mg/dL (0.00-1.00); Blood Urea Nitrogen 22 mg/dL (7-18); Calcium 9.2 mg/dL (8.5-10.1); Carbon Dioxide 29 mmol/L (21-32); Chloride 102 mmol/L (98-108); Estimated Glomerular Filt Rate 44; Glucose 91 mg/dL (70-99); Osmolality Calculated 291 mOsm/kg (285-295); Potassium 4.3 mmol/L (3.5-5.1); Sodium 139 mmol/L (136-145); Total Protein 7.8 g/dL (6.4-8.2)
== END 2024-07-31 13:46 | disposition home or self-care (01) ==
LOC: CHSLAB 13:46
PROVIDERS: PCP Internal Medicine; Visit Provider Internal Medicine
DX: K92.2 Gastrointestinal hemorrhage, unspecified (principal)
CPT/HCPCS: 36415; 80053; 85025; 85610; 85730

== ENCOUNTER 2024-08-03 08:40 | Outpatient (CLI) | payer MEDICARE, SELFPAY ==
[2024-08-03 08:54] LABS: Hematocrit 42.6 % (40.0-54.0); Hemoglobin 14.7 g/dL (14.0-18.0); Mean Corpuscular HGB Conc 34.5 g/dL (32-36); Mean Corpuscular Hemoglobin 31.8 pg (27.0-31.0); Mean Corpuscular Volume 92.2 fL (78.0-102.0); Mean Platelet Volume 9.9 fl (8.7-11.0); Platelet Count Result 227 K/mm3 (150-420); Red Blood Count 4.62 M/mm3 (4.70-6.10); Red Cell Distribution Width 13.2 % (11.6-14.4); White Blood Count 5.6 K/mm3 (4.8-10.8)
[2024-08-03 09:02] LABS: Add Urine Microscopic? YES; Appearance Urine Clear (Clear); Bilirubin Urine Negative (Negative); Blood Urine Negative (Negative); Color Urine Yellow (Yellow); Glucose Urine UA Negative (Negative); Ketones Urine Trace (Negative); Leukocyte Esterase Ur Negative (Negative); Nitrate Urine Negative (Negative); Protein Urine Trace (Negative)
[2024-08-03 09:07] LABS: RBC Urine None seen /hpf (0-2); Squamous Epithelial Cell Urine Occasional /hpf (Few); WBC Urine None seen /hpf (0-3)
[2024-08-03 09:08] LABS: Bacteria Urine Rare /hpf; Mucus Urine Moderate /lpf
[2024-08-03 09:10] LABS: Partial Thromboplastin Time 29.4 Sec (23.9-30.70); Prothrombin Time 10.8 Seconds (9.50-12.1)
[2024-08-03 10:08] LABS: Alanine Aminotransferase 36 U/L (16-63); Albumin Level 3.8 g/dL (3.4-5.0); Alkaline Phosphatase 81 U/L (46-116); Anion Gap 8 mmol/L (4-12); Aspartate Amino Transferase 27 U/L (15-37); Bilirubin,Total 0.7 mg/dL (0.00-1.00); Blood Urea Nitrogen 19 mg/dL (7-18); Carbon Dioxide 30 mmol/L (21-32); Chloride 101 mmol/L (98-108); Estimated Glomerular Filt Rate 44; Glucose 103 mg/dL (70-99); Osmolality Calculated 290 mOsm/kg (285-295); Potassium 4.3 mmol/L (3.5-5.1); Sodium 139 mmol/L (136-145); Total Protein 7.4 g/dL (6.4-8.2)
== END 2024-08-03 08:41 | disposition home or self-care (01) ==
LOC: CHSLAB 08:44
PROVIDERS: PCP Internal Medicine; Visit Provider Internal Medicine
DX: R94.4 Abnormal results of kidney function studies (principal); I48.91 Unspecified atrial fibrillation; I50.20 Unspecified systolic (congestive) heart failure; I42.9 Cardiomyopathy, unspecified
CPT/HCPCS: 36415; 80053; 81001; 85027; 85610; 85730

== ENCOUNTER 2024-08-07 00:55 | Day surgery (SDC) | payer MEDICARE, SELFPAY ==
[2024-08-03 13:54] VITALS: BMI 32.5
--- NOTE | 2024-08-05 10:03 | PC.NURSE ---
Spoke with _patient regarding medication Xarelto. Patient verbalizes understanding that the last dose is to be taken on 08/05/2024 and the Endoscopist will instruct them when to restart after the procedure.
[2024-08-07 07:30] VITALS: BP 119/77; PULSE 54; RESP 16; TEMP 36.3; O2SAT 97
[2024-08-07] MEDS: LACTATED RINGERS 1,000 ML 150 ML IV CONT (07:39)
--- NOTE | 2024-08-07 07:52 | WPDANESEPPF ---
Anes - Initial Pre Proc Eval Procedure: Operation Date: 08/07/24 08:30 Proposed Procedures p Colonoscopy - Munir Renee MD Date/Time: 08/07/24 07:52 Surgeon: Munir Renee MD Pre Op Diagnosis: fecal abnormalities Patient Data Age: 54 Gender: M Height: 1.91 m Weight: 119 kg Last Vital Signs Temp 36.3 C L 08/07/24 07:30 Pulse 54 L 08/07/24 07:30 Resp 16 08/07/24 07:30 BP 119/77 08/07/24 07:30 Pulse Ox 97 08/07/24 07:30 O2 Del Method Room Air 08/07/24 07:30 Allergies Allergy/AdvReac Type Severity Reaction Status Date / Time Latex, Natural Rubber Allergy Blister Verified 08/07/24 07:22 Home Medications ?Medication ?Instructions ?Recorded ?Confirmed ?Type hydromorphone 2 mg tablet 2 mg PO TID PRN Pain 01/17/21 08/07/24 History testosterone 1 pump topical DAILY 01/17/21 08/07/24 History rivaroxaban 20 mg tablet (Xarelto) 20 mg PO DAILY@1700 #30 tabs 01/19/21 08/07/24 Rx spironolactone 25 mg tablet 25 mg PO QAM #30 tabs 02/20/21 08/07/24 Rx furosemide 40 mg tablet 40 mg PO BID 03/05/21 08/07/24 History carvedilol 6.25 mg tablet 3.125 mg PO BID 12/28/22 08/07/24 History epinephrine 0.3 mg/0.3 mL 0.3 mg IM ONCE PRN Allergic 12/28/22 08/07/24 History injection, auto-injector Reaction morphine 15 mg tablet,extended 15 mg PO 06,12,17 12/28/22 08/07/24 History release aspirin 81 mg chewable tablet 81 mg PO DAILY 03/04/24 08/07/24 History atorvastatin 40 mg tablet 40 mg PO 1700 03/04/24 08/07/24 History pantoprazole 40 mg tablet,delayed 40 mg PO DAILY 03/04/24 08/07/24 History release sacubitril 24 mg-valsartan 26 mg 1 tab PO BID 03/04/24 08/07/24 History tablet (Entresto) amiodarone 200 mg tablet (Pacerone) 200 mg PO DAILY@0800 #90 tabs 03/05/24 08/07/24 Rx rivaroxaban 20 mg tablet (Xarelto) 20 mg PO DAILY@1700 #90 tabs 03/05/24 08/07/24 Rx Patient hx anesthesia problems: none Family hx anesthesia problems: none Results Review: All pre-operative results and documents have been reviewed as part of the pre-operative evaluation. [facility] Past Medical History Medical History MARY ALICE (obstructive sleep apnea) Heart failure with reduced ejection fraction Spinal cord stimulator status Atrial fibrillation s/p ablation 07/2023 Back pain Surgical History Surgical History History of back surgery 6 in total as of 02/2024 History of bilateral carpal tunnel release History of appendectomy History of hip replacement On the left H/O: knee surgery Bilaterally H/O laminectomy Family History Family History Father Family history of heart disease in male family member before age 55 Family history of cardiac disorder Malignant neoplasm of prostate Family history of malignant neoplasm Hypertension Sibling Malignant hyperthermia Family history of malignant neoplasm of breast in first degree relative Mother Family history of malignant neoplasm Sibling Malignant hyperthermia Social History Social History Social History: The patient lives with his . He has 2 biological children and 3 step children. The patient is disabled. His is the durable power coding machine operator for healthcare. Patient desires to be a full code. The patient says that he has the medical marijuana card but is not using it because marijuana does not work for him. He does go to pain management. He denies any tobacco or alcohol or illicit drugs. Smoking status: Never smoker Second hand tobacco smoke exposure: No Alcohol intake: current Drinks per week: 3 Alcohol use details: occasionally Substance use: never Substance use type: does not use Do You Feel Safe in your Home?: Yes Lack of Transportation: No Lack of Food: Never True Current Housing: I Have Housing Concerned About Future Housing: No Difficulty Paying Gas/Electric Bills: No Difficulty Paying for Meds: No Currently Unemployed: No Education: High School Diploma/GED Difficulty w/ Childcare or Family Care: No Living arrangements: with family Additional living arrangements comments: lives with Gender identity (if verbalized by the patient): Male Sexual Orientation (if Verbalized by the Patient): Straight or Heterosexual Spiritual care concerns: No Anes - Eval Final PreProcedure Day of Procedure 08/07/24 07:52 Patient weight: obese Heart: regular rate and rhythm Lungs: clear to auscultation Airway: Mallampati scale class II Neurological: alert and oriented Last oral intake: >/= 8 hours ASA classification: IV Emergent: no Anesthetic plan: proceed Anesthesia type and monitoring: general GIVS and standard monitoring Results Review: All pre-operative results and documents have been reviewed as part of the pre-operative evaluation. Informed Consent: The patient's anesthetic plan and its attendant risks and benefits were discussed with the patient/family/POA. Questions were solicited and answers provided to the satisfaction of the patient/family/POA.
--- NOTE | 2024-08-07 08:00 | P.HP_ITS ---
History of Present Illness History of Present Illness Consent: Risks, benefits, and alternatives have been discussed and questions answered. Patient agrees to proceed with procedure. Chief complaint: fecal abnormalities Narrative: Jamarcus Cardenas is a 54 year old male here for first colonoscopy, noted blood in stools, using xarelto Review of Systems Review of Systems: All systems reviewed & are unremarkable except as noted in HPI and below PMFSH Past Medical History Medical History (Updated 08/07/24 @ 08:04 by Munir Renee MD) Blood in stool MARY ALICE (obstructive sleep apnea) Heart failure with reduced ejection fraction Spinal cord stimulator status Atrial fibrillation s/p ablation 07/2023 Back pain Surgical History Surgical History History of back surgery 6 in total as of 02/2024 History of bilateral carpal tunnel release History of appendectomy History of hip replacement On the left H/O: knee surgery Bilaterally H/O laminectomy Family History Family History Father Family history of heart disease in male family member before age 55 Family history of cardiac disorder Malignant neoplasm of prostate Family history of malignant neoplasm Hypertension Sibling Malignant hyperthermia Family history of malignant neoplasm of breast in first degree relative Mother Family history of malignant neoplasm Sibling Malignant hyperthermia Social History Social History Social History: The patient lives with his . He has 2 biological children and 3 step children. The patient is disabled. His is the durable power ip technology transactions attorney for healthcare. Patient desires to be a full code. The patient says that he has the medical marijuana card but is not using it because marijuana does not work for him. He does go to pain management. He denies any tobacco or alcohol or illicit drugs. Smoking status: Never smoker Second hand tobacco smoke exposure: No Alcohol intake: current Drinks per week: 3 Alcohol use details: occasionally Substance use: never Substance use type: does not use Do You Feel Safe in your Home?: Yes Lack of Transportation: No Lack of Food: Never True Current Housing: I Have Housing Concerned About Future Housing: No Difficulty Paying Gas/Electric Bills: No Difficulty Paying for Meds: No Currently Unemployed: No Education: High School Diploma/GED Difficulty w/ Childcare or Family Care: No Living arrangements: with family Additional living arrangements comments: lives with Gender identity (if verbalized by the patient): Male Sexual Orientation (if Verbalized by the Patient): Straight or Heterosexual Spiritual care concerns: No Meds Home Medications and Allergies Home Medications ?Medication ?Instructions ?Recorded ?Confirmed ?Type hydromorphone 2 mg tablet 2 mg PO TID PRN Pain 01/17/21 08/07/24 History testosterone 1 pump topical DAILY 01/17/21 08/07/24 History rivaroxaban 20 mg tablet (Xarelto) 20 mg PO DAILY@1700 #30 tabs 01/19/21 08/07/24 Rx spironolactone 25 mg tablet 25 mg PO QAM #30 tabs 02/20/21 08/07/24 Rx furosemide 40 mg tablet 40 mg PO BID 03/05/21 08/07/24 History carvedilol 6.25 mg tablet 3.125 mg PO BID 12/28/22 08/07/24 History epinephrine 0.3 mg/0.3 mL 0.3 mg IM ONCE PRN Allergic 12/28/22 08/07/24 History injection, auto-injector Reaction morphine 15 mg tablet,extended 15 mg PO 06,12,17 12/28/22 08/07/24 History release aspirin 81 mg chewable tablet 81 mg PO DAILY 03/04/24 08/07/24 History atorvastatin 40 mg tablet 40 mg PO 1700 03/04/24 08/07/24 History pantoprazole 40 mg tablet,delayed 40 mg PO DAILY 03/04/24 08/07/24 History release sacubitril 24 mg-valsartan 26 mg 1 tab PO BID 03/04/24 08/07/24 History tablet (Entresto) amiodarone 200 mg tablet (Pacerone) 200 mg PO DAILY@0800 #90 tabs 03/05/24 08/07/24 Rx rivaroxaban 20 mg tablet (Xarelto) 20 mg PO DAILY@1700 #90 tabs 03/05/24 08/07/24 Rx Allergies Allergy/AdvReac Type Severity Reaction Status Date / Time Latex, Natural Rubber Allergy Blister Verified 08/07/24 07:22 Vital Signs Vital Signs - 24 hr 08/07/24 07:30 Temperature 97.3 F L Pulse Rate 54 L Respiratory Rate 16 Blood Pressure 119/77 Pulse Oximetry 97 Oxygen Delivery Room Air Exam Const: General: comfortable and no acute distress HENMT: Face/Nose/Sinus: Normal nares present Eyes: General: appearance normal, both eyes and all related structures Neck: Neck: no JVD Resp: Auscultation: clear to auscultation bilaterally Cardio: Rate: regular rate Rhythm: regular rhythm GI: Inspection: non-distended GI Palp: Yes Soft to palpation Skin: General skin exam: normal color Neuro: General: gait normal Speech: normal speech Extrem: General: normal to inspection Psych: Mental Status: mental status grossly normal Assessment and Plan Assessment and plan (1) Blood in stool: Code(s): K92.1 - Melena Status: Acute Assessment and Plan: colonoscopy
[2024-08-07 08:16] VITALS: BP 123/75; PULSE 49; RESP 22; O2SAT 93
[2024-08-07 08:26] VITALS: BP 108/71; PULSE 48; RESP 14; O2SAT 93
[2024-08-07 08:36] VITALS: BP 121/74; PULSE 51; RESP 21; O2SAT 97
== END 2024-08-07 08:46 | disposition home or self-care (01) ==
PROVIDERS: PCP Internal Medicine; Visit Provider Internal Medicine Gastroenterology
PROC: 0DJD8ZZ Inspection of Lower Intestinal Tract, Via Natural or Artificial Opening Endoscopic (ICD-10-PCS; CPT 45378; principal; 2024-08-07 08:30)
DX: K64.8 Other hemorrhoids (principal); K57.30 Diverticulosis of large intestine without perforation or abscess without bleeding; G47.33 Obstructive sleep apnea (adult) (pediatric); I48.91 Unspecified atrial fibrillation; I50.20 Unspecified systolic (congestive) heart failure; E66.9 Obesity, unspecified; Z68.32 Body mass index [BMI] 32.0-32.9, adult; Z79.01 Long term (current) use of anticoagulants; Z79.891 Long term (current) use of opiate analgesic; Z79.82 Long term (current) use of aspirin; Z98.890 Other specified postprocedural states; Z98.1 Arthrodesis status; Z80.42 Family history of malignant neoplasm of prostate; Z80.3 Family history of malignant neoplasm of breast; Z84.89 Family history of other specified conditions; Z82.49 Family history of ischemic heart disease and other diseases of the circulatory system
CPT/HCPCS: 45378; J2704; J7120

== ENCOUNTER 2025-02-05 08:39 | Outpatient (CLI) | payer MEDICARE, SELFPAY ==
--- OUTSIDE RECORDS SUMMARY | 2025-02-05 08:44 | XMS_ITS | Referral Summary ---
Author Organization [facility] Address [address] [place] [address] Care Team Providers Care Tick Inspector Name Role Phone Mateo Walters MD Primary Care Provider [phone] Vaughn Rajput MD Unavailable [phone] Encounters Date Type Department Care Team Description 12/24/2024 Telephone [facility] Medical [facility] Cardiology [address] [place] [address] Rene Stringer MD 12/24/2024 Telephone [facility] Orthopedics and Sports Medicine [address] [place] [address] Vaughn Rajput MD 11/20/2024 Telephone [facility] Cardiology [address] [place] [address] Rene Stringer MD from Last 3 Months Allergies Active Allergy Reactions Criticality Noted Date Comments Latex Blisters,Other (See comments) High 06/06/2022 Other reaction(s): Blisters Medications ANDROGEL 20.25 mg/1.25 gram (1.62 %) gel in metered-dose pump Apply 1 applicator topically daily. 5 10/06/19 18 Active HYDROmorphone (DILAUDID) 2 mg tabletIndications: Pain Take 1 tablet (2 mg total) by mouth every 4 (four) hours as needed for pain Active morphine ER (MS CONTIN) 15 mg 12 hr tablet Take 1 tablet (15 mg total) by mouth 3 (three) times a day 07/04/20 23 Active ondansetron (ZOFRAN) 8 mg tabletIndications: Prevention of Post-Operative Nausea and Vomiting Take 1 tablet (8 mg total) by mouth every 8 (eight) hours as needed for nausea or vomiting 20 tablet 2 04/08/20 24 Active senna-docusate (PERICOLACE) 8.6-50 mg Take 1 tablet by mouth 2 (two) times a day as needed for constipation 60 tablet 2 04/08/20 24 Active sacubitriL-valsart an (Entresto) 24-26 mg tablet TAKE ONE TABLET BY MOUTH TWICE A DAY 60 tablet 11 11/13/19 25 Active rivaroxaban (Xarelto) 20 mg tablet TAKE ONE TABLET BY MOUTH DAILY 30 tablet 11 11/13/19 25 Active carvediloL (COREG) 3.125 mg tablet Take 1 tablet (3.125 mg total) by mouth 2 (two) times a day with meals 180 tablet 3 11/24/19 25 Active furosemide (LASIX) 40 mg tabletIndications: Dilated cardiomyopathy (HCC) TAKE ONE TABLET BY MOUTH TWICE A DAY 60 tablet 9 12/25/19 25 Active aspirin 81 mg chewable tablet CHEW ONE TABLET BY MOUTH DAILY 30 tablet 9 12/25/19 25 Active amoxicillin 500 mg tablet/capsule Take 1 tablet/capsule (500 mg total) by mouth daily Take 4 tablets by oral route one hour prior to dental procedure 4 tablet/caps ule 1 12/25/19 25 Active spironolactone (ALDACTONE) 25 mg tablet Take 1 tablet (25 mg total) by mouth every morning 180 tablet 2 01/30/20 25 Active atorvastatin (LIPITOR) 40 mg tablet Take 1 tablet (40 mg total) by mouth daily 90 tablet 2 02/04/[address] (PROTONIX) 40 mg EC tablet Take 1 tablet (40 mg total) by mouth daily 90 tablet 2 02/04/[address] (PROTONIX) 40 mg EC tablet Take 1 tablet (40 mg total) by mouth daily 90 tablet 3 11/24/19 25 025 Discontin ued(Reord er) spironolactone (ALDACTONE) 25 mg tablet TAKE ONE TABLET BY MOUTH EVERY MORNING 60 tablet 9 12/25/19 25 025 Discontin ued(Reord er) atorvastatin (LIPITOR) 40 mg tablet TAKE ONE TABLET BY MOUTH BEDTIME 30 tablet 9 12/25/19 25 025 Discontin ued(Reord er) Active Problems Problem Noted Date Diagnosed Date Aftercare following right hip joint replacement surgery 04/29/2024 Hospital discharge follow-up 03/24/2024 Atrial fibrillation status post cardioversion Allergy to alpha-gal 05/26/2021 Dilated cardiomyopathy 03/28/2021 Paroxysmal atrial fibrillation 03/28/2021 Family history of malignant hyperthermia 021 Aftercare following left hip joint replacement s urgery 12/15/2018 Complication of surgical procedure 10/25/2017 Overview (10/25/2017): Added automatically from request for surgery [id number] Resolved Problems Problem Noted Date Diagnosed Date Resolved Date Primary osteoarthritis of right hip 03/26/2024 04/29/2024 Primary osteoarthritis of left hip 11/20/2018 12/15/2018 Social History Tobacco Use Types Packs/Day Years Used Date Smoking Tobacco: Never Smokeless Tobacco: Never Tobacco Cessation:Counseling Given: Not Answered Alcohol Use Standard Drinks/Week Comments Yes 0 (1 standard drink = 0.6 oz pur e alcohol) occasional AUDIT-C Answer Date Recorded Q1: How often do you have a drink containing alc ohol? 2-3 times a week 04/01/2024 Q2: How many drinks containi ng alcohol do you have on a typical day when you are drinking? 3 or 4 04/01/2024 Q3: How often do you have si x or more drinks on one occasion? Weekly 04/01/2024 PHQ-2 Answer Date Recorded PHQ-2 Score 0 04/18/2019 Personal Safety Answer Date Recorded Have you ever been in or are you currently in a harmful physical or emotional relationship or is someone making you feel afraid or unsafe? Denies 04/08/2024 Sex and Gender Information Value Date Recorded Sex Assigned at Not on file Legal Sex Male 11:53 PM SHOVEL OPERATOR Gender Identity Not on file Sexual Orientation Not on file Last Filed Vital Signs Vital Sign Reading Time Taken Comments Blood Pressure 118/70 10/01/2024 2:01 PM SHOVEL OPERATOR Pulse 68 10/01/2024 2:01 PM SHOVEL OPERATOR Temperature 36.3 C (97.3 F) 04/08/2024 3:40 PM CDT Respiratory Rate 18 04/08/2024 3:40 PM CDT Oxygen Saturation 99% 10/01/2024 2:01 PM SHOVEL OPERATOR Inhaled Oxygen Concentration - - Weight 118.8 kg (262 lb) 10/01/2024 2:01 PM SHOVEL OPERATOR Height 185.4 cm (6' 1) 10/01/2024 2:01 PM SHOVEL OPERATOR Body Mass Index 34.57 10/01/2024 2:01 PM SHOVEL OPERATOR Plan of Treatment Not on file Medical Devices Implanted Type Area Communications Executive Device Identifier Shelf Expiration Date Model / Serial / Lot [employer] Vascade Mvp 6-12fr Venous Closure [id number] - [id number] Implanted:Qty: 1 on 08/12/2023 by Bryon Kerns MD at [facility] Collagen Right: Femoral Vein [employer] 05/02/2025 800-612C-1 [id number] / / [id number] [employer] Vascade Mvp 6-12fr Venous Closure [id number] - [id number] Implanted:Qty: 1 on 08/12/2023 by Bryon Kerns MD at [facility] Collagen Right: Femoral Vein [employer] 05/02/2025 800-612C-1 0U / / [id number] [employer] Vascade Mvp 6-12fr Venous Closure [id number] - [id number] Implanted:Qty: 1 on 08/12/2023 by Bryon Kerns MD at [facility] Collagen Right: Femoral Vein [employer] 05/02/2025 800-612C-1 0U / / [id number] Lead 2311 Implanted:Qty: 1 on 11/29/2017 by Magdalena Doran MD at [facility] Lead N/A: Spine Thoracic [employer] 06/26/20192310 / [id number] / Lead [id number] Implanted:Qty: 1 on 11/29/2017 by Magdalena Doran MD at [facility] Lead N/A: Spine Thoracic [employer] 06/26/20192310 / [id number] / Generator Neurostimulator Proclaim Elite Thk.53 In L2.63 In X H1.98 In 2.1 Oz 7 Ipg Implantable Recharge Free Chronic Pain - Poaa778.1 - [id number] Implanted:Qty: 1 on 11/29/2017 by Magdalena Doran MD at [facility] N/A: Spine Thoracic [employer] Inc 09/26/2019 3662 / [id number] / Depuy [employer] [id number] Pope 58mm 36mm Hip Neutral Liner Acetabular Altrx Sterile Latex Free - [id number] Implanted:Qty: 1 on 12/03/2018 by Vaughn Rajput MD at [facility] Left: Hip [employer] 10/24/2023 [id number] / / [id number] [employer] [id number] Pope 58mm Sector Hip Shell Acetabular Gription Sterile Latex Free - [id number] Implanted:Qty: 1 on 12/03/2018 by Vaughn Rajput MD at [facility] Left: Hip [employer] 09/25/2028 [id number] / / [id number] [employer] [id number] Actis L111 Mm Collar Hip 8 High Offset Stem Femoral - [id number] Implanted:Qty: 1 on 12/03/2018 by Vaughn Rajput MD at [facility] Left: Hip [employer] 09/25/2028 [id number] / / [id number] [employer] [id number] Articul/Zackery 36mm Cementless Hip +8.5mm 12/14 Taper Head Femoral Latex Free - [id number] Implanted:Qty: 1 on 12/03/2018 by Vaughn Rajput MD at [facility] Left: Hip [employer] 09/25/2023 0 / / [id number] [employer] Pope 58mm Sector Hip Shell Acetabular Gription Sterile Latex Free [id number] - [id number] Implanted:Qty: 1 on 04/08/2024 by Vaughn Rajput MD at [facility] Right: Hip [employer] [id number] 12/23/2033 [id number] / / [id number] [employer] Pope 58mm 36mm Hip Neutral Liner Acetabular Altrx Sterile Latex Free [id number] - [id number] Implanted:Qty: 1 on 04/08/2024 by Vaughn Rajput MD at [facility] Right: Hip [employer] [id number] 12/23/2028 [id number] / / [id number] [employer] Actis Collar Hip 9 High Offset Stem Femoral [id number] - [id number] Implanted:Qty: 1 on 04/08/2024 by Vaughn Rajput MD at [facility] Right: Hip [employer] [id number] 09/25/2032 [id number] / / [id number] [employer] Articul/Zackery 36mm Cementless Hip +8.5mm 08/08 Taper Head Femoral Latex Free 1365-36-330 - [id number] Implanted:Qty: 1 on 04/08/2024 by Vaughn Rajput MD at [facility] Right: Hip [employer] [id number] 11/24/2027 0 / / [id number] Procedures Procedure Name Priority Date/Time Associated Diagnosis Comments PSA DIAGNOSTIC Routine 01/22/2024 7:58 AM CDT from Last 3 Months or Most Recently Relevant to Health Maintenance Results * PSA diagnostic (01/22/2024 7:58 AM CDT) PSA-Total 0.87 <=3.90 ng/mL Comment: Interpretive Data AGE SEX REFERENCE INTERVAL 0 minutes-150 years Female None 0 minutes-49 years Male None 50-59 years Male 0-3.90 60-69 years Male 0-5.40 70-79 years Male 0-6.20 80-150 years Male 0-6.20 The Robe PSA Total assay procedure was used. Results from different manufacturers or methods may not be comparable. Serial testing should be performed using the same method. Current interpretive data last revised 21. Testing performed by: [facility], [address] [place] [address], [place]., [address] Blood 01/22/2024 7:58 AM CDT 01/22/2024 8:29 AM CDT us Dang Cardoza III, MD LAB BLOOD ORDERABLES Fin al Result [facility] [address] Department [place] [address] from Last 3 Months or Most Recently Relevant to Health Maintenance Insurance MEDICARE [facility] [place] [address] [place] [address] [place] [address] Advance Directives For more information, please contact: [phone] * Full Code (Latest Code Status on File) Date Activated Date Inactivated Comments 04/08/2024 11:04 AM 04/08/2024 7:50 PM * Full Code Date Activated Date Inactivated Comments 12/03/2018 12:15 PM 12/04/2018 5:09 PM * Full Code Date Activated Date Inactivated Comments 04/04/2018 11:41 AM 04/05/2018 2:54 AM * Full Code Date Activated Date Inactivated Comments 11/29/2017 12:29 PM 11/29/2017 6:47 PM Care Teams Tick Inspector Relationship Specialty Start Date End Date Mateo Walters MD PCP - General Internal Medicine 01/27/21 Vaughn Rajput MD [address] [place] [address] Surgeon Orthopedic Surgery 04/08/24
--- OUTSIDE RECORDS SUMMARY | 2025-02-05 08:44 | XMS_ITS | Encounter Summary ---
Author Organization [facility] Address [address] [place] [address] Phone Care Team Providers Care Gear Tester Name Role Phone Jesse Arellano MD Primary Care Provider [phone] Mateo Walters MD Primary Care Provider [phone] Jesse Arellano MD Primary Care Provider [phone] Jesse Arellano MD Primary Care Provider [phone] Mateo Walters MD Primary Care Provider [phone] Vaughn Rajput MD Unavailable [phone] Encounter Details Date Type Department Care Team (Late st Contact Info) Description 12/18/2017 Orders Only [facility] ProviderRadha MD [address] [place] [address] Social History Tobacco Use Types Packs/Day Years Used Date Smoking Tobacco: Never Smokeless Tobacco: Never Alcohol Use Standard Drinks/Week Comments Yes 0 (1 standard drink = 0.6 oz pur e alcohol) Sex and Gender Information Value Date Recorded Sex Assigned at Not on file Legal Sex Male 11:53 PM ARTIST SUSPECT Gender Identity Not on file Sexual Orientation Not on file documented as of this encounter Plan of Treatment Not on file documented as of this encounter Procedures Procedure Name Priority Date/Time Associated Diagnosis Comments DISCHARGE LABORATORY CUMULATIVE REPORT 12/18/2017 12:00 AM CDT documented in this encounter Results * DISCHARGE LABORATORY CUMULATIVE REPORT (12/18/2017 12:00 AM CDT) Narrative 12/18/2017 12:00 AM CDT Ordered by an unspecified provider. us Historical Provider LAB BLOOD ORDERABLES Yumi l Result documented in this encounter Visit Diagnoses Not on filedocumented in this encounter Care Teams Gear Tester Relationship Specialty Start Date End Date Jesse Arellano MD PCP - General 11/29/17 11/27/18 Mateo Walters MD PCP - General 11/28/18 12/01/18 Jesse Arellano MD PCP - General 12/02/18 12/04/18 Jesse Arellano MD PCP - General 12/05/18 01/26/21 Mateo Walters MD PCP - General Internal Medicine 01/27/21 Vaughn Rajput MD [address] [place] [address] [place] [address] Surgeon Orthopedic Surgery 04/08/24 documented as of this encounter
--- OUTSIDE RECORDS SUMMARY | 2025-02-05 08:44 | XMS_ITS | Clinical Summary ---
Author Organization [facility] Address [address] [place] [address] Care Team Providers Care Grocery Department Manager Name Role Phone Mateo Walters MD Primary Care Provider [phone] Vaughn Rajput MD Unavailable [phone] Allergies Active Allergy Reactions Criticality Noted Date [...] 021 Aftercare following left hip joint replacement deidra pagan 12/15/2018 Complication of surgical procedure 10/25/2017 Overview (10/25/2017): Added automatically from request for surgery [id number] Resolved Problems Problem Noted Date Diagnosed Date Resolved Date Primary osteoarthritis of right hip 03/26/2024 04/29/2024 Primary osteoarthritis of left hip 11/20/2018 12/15/2018 Encounters Date Type Department Care Team Description 12/24/2024 Telephone [facility] [address] [place] [address] Rene Stringer MD 12/24/2024 Telephone [facility] [address] [facility] [address] [place] [address] Vaughn Rajput MD 11/20/2024 Telephone [facility] [address] [place] [phone] Rene Stringer MD from Last 3 Months Surgical History Surgery Date Site/Laterality Comments SPINE SURGERY 08/26/1998 - 08/25/1999 Fusion L5-S1 KNEE ARTHROSCOPY Left Left Tibia Fx., Meniscus Repair CARPAL TUNNEL RELEASE Right Ulnar Release APPENDECTOMY 08/26/2007 - 08/25/2008 BACK SURGERY 08/26/2019 - 08/25/2020 TOTAL HIP ARTHROPLASTY 08/26/2018 - 08/25/2019 Left SPINAL CORD STIMULATOR IMPLANT 3 times KNEE SURGERY Right Medical History Medical History Date Comments PONV (postoperative nausea and vomiting) 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 Brother/sister Atrial fibrillation (HCC) Migraine none recently DDD (degenerative disc disease), lumbar Arthritis Rib fractures 8 ribs left post erior CHF (congestive heart failure) (HCC) Family History Medical History Relation Name Comments Atrial fibrillation Father Cancer Father Hypertension Father Cancer Mother Relation Name Status Comments Father (Age 81) Mother (Age 81) Social History Tobacco Use Types Packs/Day Years [...] on file Legal Sex Male 11:53 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 Gender Identity Not on file Sexual Orientation Not on file Obstetrics History Last Filed Vital Signs Vital Sign Reading Time Taken Comments Blood Pressure 118/70 10/01/2024 2:01 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 Pulse 68 10/01/2024 2:01 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 Temperature 36.3 C (97.3 F) 04/08/2024 3:40 PM CDT Respiratory Rate 18 04/08/2024 3:40 PM CDT Oxygen Saturation 99% 10/01/2024 2:01 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 Inhaled Oxygen Concentration - - Weight 118.8 kg (262 lb) 10/01/2024 2:01 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 Height 185.4 cm (6' 1) 10/01/2024 2:01 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 Body Mass Index 34.57 10/01/2024 2:01 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 Plan of Treatment Health Maintenance Due Date Last Done Comments Colon Cancer Screening-Colonoscopy 1969 Hepatitis C Screening 1969 DTaP/Tdap/Td Vaccine (1 - Tdap) 1980 Hepatitis B Screening 1987 Regular Well Visit/Exam 18-64 1987 Zoster Vaccine (1 of 2) 2019 Depression Screening 11/26/2019 11/25/2018 Influenza Vaccine (Season Ended) 2025 Prostate Cancer Screening-PSA 01/21/2026 01/22/2024 Pneumococcal vaccine <65 Aged Out No longer eligible based on patient's age to complete this topic Medical Devices Implanted Type Area Blacksmith Helper Device Identifier Shelf Expiration Date Model / Serial / Lot [employer] Vascade Mvp 6-12fr Venous Closure [id number] - [id number] Implanted:Qty: 1 on 08/12/2023 by Bryon Kerns MD at [facility] Collagen Right: Femoral Vein [employer] 05/02/2025 800-612C-1 0U / / [id number] [employer] Vascade Mvp 6-12fr Venous Closure [id number] - [id number] Implanted:Qty: 1 on 08/12/2023 by Bryon Kerns MD at [facility] Collagen Right: Femoral Vein [employer] 05/02/2025 800-612C-1 0U / / [id number] [employer] Vascade Mvp 6-12fr Venous Closure [id number] - [id number] Implanted:Qty: 1 on 08/12/2023 by Bryon Kerns MD at [facility] Collagen Right: Femoral Vein [employer] 05/02/2025 800-612C-1 0U / / [id number] Lead 2311 Implanted:Qty: 1 on 11/29/2017 by Magdalena Doran MD at [facility] Lead N/A: Spine Thoracic [employer] 06/26/2019 2311 / [id number] / Lead 2311 Implanted:Qty: 1 on 11/29/2017 by Magdalena Doran MD at [facility] Lead N/A: Spine Thoracic [employer] 06/26/2019 2311 / [id number] / Generator Neurostimulator Proclaim Elite Thk.53 In L2.63 In X H1.98 In 2.1 Oz 7 Ipg Implantable Recharge Free Chronic Pain - Cjwv080.1 - [id number] Implanted:Qty: 1 on 11/29/2017 by Magdalena Doran MD at [facility] N/A: Spine Thoracic [employer] Inc 09/26/2019 3662 / [id number] / Dep[employer] [id number] [place] 58mm 36mm Hip Neutral Liner Acetabular Altrx Sterile Latex Free - [id number] Implanted:Qty: 1 on 12/03/2018 by Vaughn Rajput MD at [facility] Left: Hip [employer] 10/24/2023 [id number] / / [id number] [employer] [id number] [place] 58mm Sector Hip Shell Acetabular Gription Sterile Latex Free - [id number] Implanted:Qty: 1 on 12/03/2018 by Vaughn Rajput MD at [facility] Left: Hip [employer] 09/25/2028 [id number] / / [id number] [employer] [id number] Actis L111 Mm Collar Hip 8 High Offset Stem Femoral - [id number] Implanted:Qty: 1 on 12/03/2018 by Vaughn Rajput MD at [facility] Left: Hip [employer] 09/25/2028 [id number] / / [id number] [employer] 1365-36-330 Articul/Zackery 36mm Cementless Hip +8.5mm /14 Taper Head Femoral Latex Free - [id number] Implanted:Qty: 1 on 12/03/2018 by Vaughn Rajput MD at [facility] Left: Hip [employer] 09/25/2023 0 / / [id number] [employer] [place] 58mm Sector Hip Shell Acetabular Gription Sterile Latex Free [id number] - [id number] Implanted:Qty: 1 on 04/08/2024 by Vaughn Rajput MD at [facility] Right: Hip [employer] [id number] 12/23/2033 [id number] / / [id number] [employer] [place] 58mm 36mm Hip Neutral Liner Acetabular Altrx Sterile Latex Free [id number] - [id number] Implanted:Qty: 1 on 04/08/2024 by Vaughn Rajput MD at [facility] Right: Hip [employer] [id number] 12/23/2028 [id number] / / [id number] [employer] Actis Collar Hip 9 High Offset Stem Femoral [id number] - [id number] Implanted:Qty: 1 on 04/08/2024 by Vaughn Rajput MD at [facility] Right: Hip [employer] [id number] 09/25/2032 [id number] / / [id number] [employer] Articul/Zackery 36mm Cementless Hip +8.5mm 08/08 Taper Head Femoral Latex Free 1365-36-330 - [id number] Implanted:Qty: 1 on 04/08/2024 by Vaughn Rajput MD at [facility] Right: Hip [employer] [id number] 11/24/2027 0 / / [id number] Procedures Procedure Name Priority Date/Time Associated Diagnosis [...] data last revised 21. Testing performed by: [facility], [address] [place] [address]., [address] Blood 01/22/2024 7:58 AM CDT 01/22/2024 8:29 AM CDT us Dang Cardoza III, MD LAB BLOOD ORDERABLES Fin al Result [facility] [address] [facility] Department [place] [address] from Last 3 Months or Most Recently Relevant to Health Maintenance Insurance MEDICARE IDOR MEDICARE MEDICARE IDOR MEDICARE IDOR Advance Directives For more information, please contact: [phone] * Full Code (Latest Code Status on File) Date Activated Date Inactivated Comments 04/08/2024 11:04 AM 04/08/2024 7:50 PM * Full Code Date Activated Date Inactivated Comments 12/03/2018 12:15 PM 12/04/2018 5:09 PM * Full Code Date Activated Date Inactivated Comments 04/04/2018 11:41 AM 04/05/2018 2:54 AM * Full Code Date Activated Date Inactivated Comments 11/29/2017 12:29 PM 11/29/2017 6:47 PM Care Teams Grocery Department Manager Relationship Specialty Start Date End Date Mateo Walters MD PCP - General Internal Medicine 01/27/21 Vaughn Rajput MD 4 [facility] [address] [address] Surgeon Orthopedic Surgery 04/08/24
[2025-02-05 08:51] LABS: Hematocrit 42.7 % (40.0-54.0); Hemoglobin 14.2 g/dL (14.0-18.0)
[2025-02-05 09:44] LABS: Prostate Specific Antigen 1.1 ng/mL (< OR = 4.0)
[2025-02-10 11:09] LABS: Testosterone Total 744 ng/dL (250-1100)
== END 2025-02-05 08:40 | disposition home or self-care (01) ==
LOC: CHSLAB 08:41
PROVIDERS: PCP Internal Medicine; Visit Provider Urology
DX: E29.1 Testicular hypofunction (principal); Z12.5 Encounter for screening for malignant neoplasm of prostate
CPT/HCPCS: 36415; 84153; 84403; 85014; 85018; G0103

== ENCOUNTER 2025-08-03 15:17 | Outpatient (CLI) | payer MEDICARE, SELFPAY ==
--- OUTSIDE RECORDS SUMMARY | 2025-04-20 03:00 | XMS_ITS ---
Author Organization [facility] Address [address] [address] Care Team Providers Care Mechanical Operator Name Role Phone Migration, Provider Unavailable Unavailable REASON FOR VISIT EMR-Dany Vital Signs Temperature 99.3 degrees Fahrenheit 04/20/20 25 Blood pressure systolic 107 mm Hg 04/20/20 25 Blood pressure diastolic 78 mm Hg 025 Heart Rate 83 /min 04/20/2025 Respiratory Rate 18 /min 04/20/2025 Height 75.000 in 04/20/2025 Weight 250.000 lbs 04/20/2025 BMI 31.24 kg/m2 04/20/2025 Oximetry 98 % 04/20/2025 BMI Percentile 31.2 % 04/20/2025 Height-cm 190.50 cm 04/20/2025 Weight-kg 113.40 kg 04/20/2025 Encounters Encounter Location Date Provider Diagnosis [facility] [address] [place] [address] 04/20/2025 Provider Migration Plan Of Treatment No Information Progress Notes * DESIREE DIAZOB:1970 (55 yo M)Acc No.[id number]:04/20/2025 Patient: JULIAN CALVIN Provider: :1970 A ge:54 Y S ex:Male Date:04/20/2025 Address:[address] [place] [address] Subjective: * Chief Complaints: * E MR-Dany Objective: * Vitals: T emp: 99.3 F, HR: 83 /min, BP: 107/78 mm Hg, RR: 18 /min, Oxygen sat %: 98 %, Wt- k.40 kg, Wt: 250.000 lbs, Ht: 75.000 in, Ht-cm: 190.50 cm, BMI: 31.24 Index, BMI %: 31.2 %. * Electronic signature of Prov ider Migration on 08/03/2025 at 05:44 PM METAL MOVER Sign off status: Pending * Provider: Date: 0 04/20/2025 Generated for Yifan willis/Santino/Saadiaitting on: 1 10/04/2024 05:44 PM METAL MOVER
--- OUTSIDE RECORDS SUMMARY | 2025-05-15 03:00 | XMS_ITS ---
Author Organization [facility] Address [address] [address] Care Team Providers Care Buckle Stapler Name Role Phone Migration, Provider Unavailable Unavailable REASON FOR VISIT EMR-Dany Encounters Encounter Location Date Provider Diagnosis [facility] [address] [address] 05/15/2025 Provider Migration Plan Of Treatment No Information Progress Notes * DESIREE DIAZOB:1970 (55 yo M)Acc No.[id number]:05/15/2025 Patient: JULIAN CALVIN :1970 A ge:54 Y S ex:Male Address:[facility] [address] Subjective: * Chief Complaints: * E MR-Dany * * Date:
--- OUTSIDE RECORDS SUMMARY | 2025-05-16 03:00 | XMS_ITS ---
Author Organization [facility] Address [address] [address] Care Team Providers Care Energy Administrator Name Role Phone Migration, Provider Unavailable Unavailable Allergies No Known Allergies REASON FOR VISIT EMR-Dany Medications Medication SIG (Take, Route, Frequency, Duration) Notes Start Date End Date Status predniSONE oral *Pick strength-form from Medispan for eRX* 04/20/2025 Active Amoxicillin-Pot Clavulanate oral *Pick strength-form from Medispan for eRX* 04/20/2025 Active Benzonatate oral *Pick strength-form from Medispan for eRX* 04/20/2025 Active Azithromycin oral *Pick strength-form from Medispan for eRX* 04/20/2025 Active Encounters Encounter Location Date Provider Diagnosis [facility] [address] [address] 05/16/2025 Provider Migration Plan Of Treatment No Information Progress Notes * DESIREE DIAZOB:1970 (55 yo M)Acc No.[id number]:05/16/2025 Patient: JULIAN CALVIN :1970 A ge:54 Y S ex:Male Address:[address] [place] [address], [place], [address] Subjective: * Chief Complaints: * E MR-Dany * Medications: T akingAmoxicillin-Pot Clavulanate oral , Notes to Pharmacist: *Pick strength-form from Medispan for eRX*Azithromycin oral , Notes to Pharmacist: *Pick strength-form from Medispan for eRX*Benzonatate oral , Notes to Pharmacist: *Pick strength-form from Medispan for eRX*predniSONE oral , Notes to Pharmacist: *Pick strength-form from Medispan for eRX*Taking Amoxicillin-Pot Clavulanate oral , Notes to Pharmacist: *Pick strength-form from Medispan for eRX*Taking Azithromycin oral , Notes to Pharmacist: *Pick strength-form from Medispan for eRX*Taking Benzonatate oral , Notes to Pharmacist: *Pick strength-form from Medispan for eRX*Taking predniSONE oral , Notes to Pharmacist: *Pick strength-form from Medispan for eRX* * Allergies: N .K.D.A. * * Date:
[2025-08-03 15:36] LABS: Hematocrit 44.6 % (40.0-54.0); Hemoglobin 14.8 g/dL (14.0-18.0)
[2025-08-03 16:34] LABS: Prostate Specific Antigen 1.0 ng/mL (< OR = 4.0)
--- OUTSIDE RECORDS SUMMARY | 2025-08-03 17:44 | XMS_ITS | Patient Health Record ---
Author Organization [facility] Address [address] [place] [address] Care Team Providers Care Police Stenographer Name Role Phone Migration, Provider Unavailable Unavailable Allergies No Known Allergies Reason For Referral No Information Medications Medication SIG (Take, Route, Frequency, Duration) Notes Start Date End Date Status predniSONE oral *Pick strength-form from Medispan for eRX* 04/20/2025 Active Amoxicillin-Pot Clavulanate oral *Pick strength-form from Medispan for eRX* 04/20/2025 Active Benzonatate oral *Pick strength-form from Medispan for eRX* 04/20/2025 Active Azithromycin oral *Pick strength-form from Medispan for eRX* 04/20/2025 Active Vital Signs Heart Rate 83 /min 04/20/2025 Temperature 99.3 degrees Fahrenheit 04/20/2025 Respiratory Rate 18 /min 04/20/2025 Height-cm 190.50 cm 04/20/2025 Oximetry 98 % 04/20/2025 Blood pressure diastolic 78 mm Hg 04/20/2025 Weight-kg 113.40 kg 04/20/2025 BMI Percentile 31.2 % 04/20/2025 Height 75.000 in 04/20/2025 Blood pressure systolic 107 mm Hg 04/20/2025 Weight 250.000 lbs 04/20/2025 BMI 31.24 kg/m2 04/20/2025 Encounters Encounter Location Date Provider Diagnosis [facility] [place] [address] [place] [address] 04/20/2025 Provider Migration [facility] [place] [address] [place] [address] 05/15/2025 Provider Migration [facility] [address] [address] 05/16/2025 Provider Migration Plan Of Treatment No Information
--- OUTSIDE RECORDS SUMMARY | 2025-08-03 17:44 | XMS_ITS | Clinical Summary ---
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 Gender Identity Not on file Sexual Orientation Not on file Plan of Treatment Health Maintenance Due Date Last Done Comments Colorectal Cancer Screening Colonoscopy (10 Years) 1969 Annual Physical 1972 Hepatitis C 1987 DTaP, Tdap and Td Vaccines ( 1 - Tdap) 1988 Hepatitis B Vaccines (1 of 3 - 19+ 3-dose series) 1988 Pneumococcal Vaccine: 50+ Ye ars (1 of 1 - PCV) 2019 Zoster Vaccines (1 of 2) 2019 COVID-19 Vaccine ( - 2024-2 6 season) 2025 Influenza Adult (#1) 2025 Hepatitis A Vaccines Aged Out No long er eligible based on patient's age to complete this topic Meningococcal B Vaccine Aged Out No l onger eligible based on patient's age to complete this topic Meningococcal Vaccine Aged Out No cadence raysa eligible based on patient's age to complete this topic RSV Immunizations Under 20 Months Aged Out No longer eligible based on patient's age to complete this topic Insurance MEDICARE MEDICAID Care Teams Membership Sales Advisor Relationship Specialty Start Date End Date Mateo Walters MD [address] [place] [address] PCP - General INTERNAL MEDICINE 07/28/19
== END 2025-08-03 15:18 | disposition home or self-care (01) ==
LOC: CHSLAB 15:21
PROVIDERS: PCP Internal Medicine; Visit Provider Urology
DX: E29.1 Testicular hypofunction (principal); N42.9 Disorder of prostate, unspecified
CPT/HCPCS: 36415; 84153; 85014; 85018